=== PATIENT | female | born 1955 | race Caucasian/White ===

== ENCOUNTER 2017-10-02 05:35 | Inpatient (IN) | payer OTHER ==
[2017-09-07 11:08] VITALS: BMI 29.0
--- NOTE | 2017-09-07 11:34 | PAT Medication Instructions ---
Service Date Sep 07, 2017. Current Home Medication List Atorvastatin (Lipitor), 10 MG PO QPM B-Complex Vitamins (Vitamin B Complex), 1 TAB PO QAM Rojjjif-Dhkxvckeo-Ianu (Calcium Magnesium & Zinc), 1 TAB PO HS Hydrochlorothiazide (Hctz), 25 MG PO QAM Ibuprofen (Advil), 400-800 MG PO PRN Losartan Potassium (Cozaar), 50 MG PO QAM Multivitamin (Multivitamin), 1 TAB PO QAM Ropinirole (Requip), 2-3 TAB PO QPM/HS Tramadol (Ultram), 50 MG PO Q4-6H Venlafaxine Hcl (Effexor), 37.5 MG PO QAM Vitamins C & E (Vitamin C), 1 TAB PO BID Zolpidem Tartrate (Zolpidem Tartrate), 1-1.5 TAB PO HS [Potassium Otc], 1 TAB PO HS Medication Instructions For Your Scheduled Surgery -Follow with surgeon for instructions: Ibuprofen (Advil), 400-800 MG PO PRN Tramadol (Ultram), 50 MG PO Q4-6H - Hold the following medications 24 hours prior to surgery: Ropinirole (Requip), 2-3 TAB PO QPM/HS - Hold the following medications the morning of surgery: B-Complex Vitamins (Vitamin B Complex), 1 TAB PO QAM Hydrochlorothiazide (Hctz), 25 MG PO QAM Losartan Potassium (Cozaar), 50 MG PO QAM Multivitamin (Multivitamin), 1 TAB PO QAM Vitamins C (Vitamin C), 1 TAB PO BID - Take the following medications as scheduled the night before surgery: Vitamins C (Vitamin C), 1 TAB PO BID Zolpidem Tartrate (Zolpidem Tartrate), 1-1.5 TAB PO HS [Potassium Otc], 1 TAB PO HS Atorvastatin (Lipitor), 10 MG PO QPM Bqeosmm-Dhfabyiop-Phhr (Calcium Magnesium & Zinc), 1 TAB PO HS Venlafaxine Hcl (Effexor), 37.5 MG PO QPM If you have any questions please call us at [phone] or [phone] or [phone]
[2017-09-07 11:58] LABS: URINE APPEARANCE CLEAR (CLEAR); URINE BILIRUBIN NEG (NEG); URINE COLOR YELLOW; URINE NITRITE NEG (NEG); URINE SPECIFIC GRAVITY 1.021 (1.000-1.030); UROBILINOGEN NEG (NEG)
[2017-09-07 11:59] LABS: BASO % 0.4 %; BASO ABS # 0.03 K/uL (0-0.2); COMPLETE YES; EOS % 3.4 %; HEMATOCRIT 41.3 % (37-47); IG% 0.1 %; LYMPH % 25.9 %; LYMPH ABS # 1.93 K/uL (1.2-3.4); MEAN CELL VOLUME 85.3 fL (80-100); MEAN CORPUSCULAR HEMOGLOBIN 29.5 pg (25-34); MEAN CORPUSCULAR HGB CONC 34.6 g/dl (32-36); MEAN PLATELET VOLUME 10.2 fL (7.4-10.4); MONO % 5.5 %; NEUT % 64.7 %; PLATELET COUNT 230 K/uL (130-400); RED BLOOD COUNT 4.84 M/uL (4.2-5.4); WHITE BLOOD COUNT 7.46 K/uL (4.8-10.8)
[2017-09-07 12:01] LABS: MANUAL MICROSCOPIC REQUIRED? NO; REVIEW REQ? NO
[2017-09-07 12:06] LABS: INR 0.9 (0.9-1.1); PARTIAL THROMBOPLASTIN RATIO 1.1; PROTHROMBIN TIME (PATIENT) 9.8 SECONDS (9.0-12.0)
--- NOTE | 2017-09-07 12:17 | DIAGNOSTIC IMAGING REPORT ---
CHEST PREADMISSION(PA/LAT) HISTORY: Preop. COMPARISON: None. FINDINGS: The heart is normal in size. Degenerative changes are seen within the thoracic spine. No pleural effusions. No pneumothorax. No focal lung consolidations to suggest pneumonia. No evidence for pulmonary edema. A few linear densities at the lung bases favor subsegmental atelectasis or scarring. IMPRESSION: No acute process. Electronically signed by: Kendrick Quiroz M.D. 09/07/2017 12:16 PM Dictated Date/Time: 09/07/2017 12:11 PM
[2017-09-07 12:31] LABS: ESTIMATED AVERAGE GLUCOSE 80 mg/dl; HA1C FLAG Normal (Normal)
[2017-09-07 13:49] LABS: BUN/CREATININE RATIO 34.3 (10-20); CALCIUM 9.1 mg/dl (8.5-10.1); CREATININE 0.74 mg/dl (0.60-1.20); POTASSIUM 4.3 mmol/L (3.5-5.1)
--- NOTE | 2017-09-28 12:09 | History and Physical ---
History & Physical Date Sep 28, 2017. Chief Complaint Right knee pain History of Present Illness The patient is a 61 year old female with complaints of right knee pain. She has tried conservative therapy of NSAIDs, PT and injections with no relief. She would like to proceed with a right total knee arthroplasty. Past Medical/Surgical History PMHx: hypertension, hypercholesterolemia, anxiety, osteoarthritis, gerd PSHx: total hysterectomy, appendectomy, Bilateral CTR, tonsillectomy, cholecystectomy Additional History Hepatic Disease: No Endocrine Disorder: No Kidney Disease: No Hypertension: Yes Heart Disease: No Bleeding Tendencies: No Infectious Diseases: No Allergies Coded Allergies: Latex1 -Allergic Contact Dermititis (Verified Allergy, Unknown, RASH, ) NSAIDs (Verified Allergy, Unknown, DIARRHEA WITH IBS-WITH LONG-TERM USAGE , 09/07/17) Nickel (Verified Allergy, Unknown, DERMATITIS WITH METAL CONTACT IN JEWELRY, 09/07/17) Quinolones (Verified Allergy, Unknown, UNKNOWN, 09/07/17) Soy Allergy (Verified Allergy, Unknown, RASH IRRITATION ON SKIN, 09/07/17) Home Medications Scheduled Atorvastatin (Lipitor), 10 MG PO QPM B-Complex Vitamins (Vitamin B Complex), 1 TAB PO QAM Fhcijhx-Ioirgucus-Zwoc (Calcium Magnesium & Zinc), 1 TAB PO HS Hydrochlorothiazide (Hctz), 25 MG PO QAM Ibuprofen (Advil), 400-800 MG PO PRN Losartan Potassium (Cozaar), 50 MG PO QAM Multivitamin (Multivitamin), 1 TAB PO QAM Ropinirole (Requip), 2-3 TAB PO QPM/HS Tramadol (Ultram), 50 MG PO Q4-6H Venlafaxine Hcl (Effexor), 37.5 MG PO QPM Vitamins C & E (Vitamin C), 1 TAB PO BID Zolpidem Tartrate (Zolpidem Tartrate), 1-1.5 TAB PO HS [Potassium Otc], 1 TAB PO HS Physical Examination Skin: warm/dry, no rash Eyes: normal inspection, EOMI ENT: normal ENT inspection Head: normocephalic, atraumatic Neck: supple, no adenopathy Respiratory/Chest: lungs clear, normal breath sounds Cardiovascular: regular rate, rhythm, no murmur Abdomen / GI: normal bowel sounds, non tender Extremities: normal inspection, + pertinent finding (ROM 0-90 medial joint line tenderness, ligaments are intact.) Neurologic/Psych: no motor/sensory deficits, alert, oriented x 3 Diagnosis Primary osteoarthritis of the right knee Plan of Treatment Patient is scheduled for a right total knee arthroplasty. She has failed conservative therapy. Risks and benefits were discussed with the patient. She understands the risks and wishes to proceed. All questions were answered to her satisfaction.
[2017-10-02] VITALS (9 sets, daily range): BP systolic 131–197; BP diastolic 77–112; PULSE 71–94; TEMP 36.2–36.9; O2SAT 92–99; Ht 165.1 cm; Wt 81.2 kg
[~2017-10-02] VITALS: Ht 165.1 cm; Wt 81.2 kg
[~2017-10-02 05:35] MED LIST: ATOR10TA82 PO; B-COTAB18 PO; CALC1TAB27 PO; EFF/375 PO; HYDR25TA4 PO; IBUP-1050 PO; LOSA50TA6 PO; MULT-506 PO; POTASSIUM OTC PO; ROPI0.5T15 PO; TRAM-10 PO; VITACAP26 PO; ZOLP5TAB6 PO
[2017-10-02] MEDS ORDERED: LACTATED RINGER'S 1000ML 1,000 ML IV SCH (06:00)
[2017-10-02] MEDS ORDERED: ROPIVACAINE 5MG/ML 30 ML 150 MG, BUPIVACAINE 0.5% MPF INJ 30 ML, EpINEphrine HCL INJ 0.... INFIL SCH ×8 (06:00)
[2017-10-02] MEDS ORDERED: LACTATED RINGER'S 1000ML IV SCH (06:00)
[2017-10-02] MEDS ORDERED: CEFAZOLIN 2000MG IV PUSH 10 ML IV SCH (06:00)
[2017-10-02] MEDS ORDERED: CeleBREX 200 MG CAP PO SCH (06:00)
[2017-10-02] MEDS ORDERED: DEXAMETHASONE 4 MG TAB PO SCH (06:00)
[2017-10-02] MEDS ORDERED: TRANEXAMIC ACID INJ 1,000 MG in SYRINGE 0 ML IV SCH (06:00)
[2017-10-02] MEDS ORDERED: LACTATED RINGER'S 1000ML 500 ML IV ONE (06:00)
[2017-10-02] MEDS ORDERED: METOCLOPRAMIDE HCL 10 MG TAB PO SCH (06:00)
[2017-10-02] MEDS ORDERED: FAMOTIDINE 20 MG TAB PO SCH (06:00)
[2017-10-02] MEDS ORDERED: GABAPENTIN 300 MG CAP PO SCH (06:00)
[2017-10-02] MEDS ORDERED: ACETAMINOPHEN 500 MG TAB PO SCH (06:00)
[2017-10-02] MEDS ORDERED: DEXAMETHASONE SOD INJ 4 MG/ML VIAL ONE (06:31)
[2017-10-02] MEDS ORDERED: BUPIVACAINE/EPINEPHRINE 0.5% MPF 1:200,000 10 ML VIAL ONE (06:31)
[2017-10-02] MEDS ORDERED: SODIUM CHLORIDE 0.9% INJ 10 ML VIAL ONE (06:32)
--- NOTE | 2017-10-02 06:54 | History & Physical Bridge Note ---
H&P Re-Evaluation Bridge Note: I have examined the patient, reviewed the History & Physical and in the interval since the performance of the History & Physical I have noted the following changes of clinical significance: No changes noted
[2017-10-02] MEDS ORDERED: POVIDONE-IODINE OP SOLN 30 ML BTL ONE (07:03)
[2017-10-02] MEDS ORDERED: ORTHO JOINT ANESTHETIC ONE (07:03)
[2017-10-02] MEDS ORDERED: BACITRACIN 50000 UNIT VIAL ONE (07:03)
[2017-10-02] MEDS ORDERED: MIDAZOLAM HCL 1 MG/ML 2ML VIAL ONE (07:33)
[2017-10-02] MEDS ORDERED: FENTANYL CITRATE INJ 50 MCG/1 ML 2 ML VIAL ONE ×2 (07:33→09:46)
[2017-10-02] MEDS ORDERED: LIDOCAINE HCL 2% 2 ML VIAL (20MG/ML) ONE (08:21)
[2017-10-02] MEDS ORDERED: PROPOFOL IV EMULSION 10 MG/ML 20 ML VIAL IV ONE (08:21)
[2017-10-02] MEDS ORDERED: ONDANSETRON INJ 2 MG/ML 2 ML VIAL ONE (09:08)
--- NOTE | 2017-10-02 09:27 | [facility] Operative Report ---
Operative Report Operative Date Oct 02, 2017. Pre-Operative Diagnosis Primary osteoarthritis of the right knee Post-Operative Diagnosis same as pre-operative Procedure(s) Performed Right Total Knee Arthroplasty-cemented Surgeon Dr. Chencho Huynh Water And Fire Technician Surgeon(s) TATI Sotelo Estimated Blood Loss 20ml Findings as above Specimens Specimen A: Right knee bone and tissue Drains 2 hemovac Anesthesia spinal Complication(s) None Disposition Recovery Room / PACU Indications 61-year-old female with endstage arthritis of her knee. She is pkko-is-cznx medial compartment. There is ossify partial medial femoral condyle tibial plateau. She's failed conservative measures including injection and rehabilitation. She wishes to proceed with right total knee arthroscopy. Description of Procedure Risks benefits and alternatives of surgery including but not limited to infection, DVT, pain, stiffness, need for surgery, damage to blood vessels, damage to nerves or risks of anesthesia were discussed with the patient and they wished to proceed. The patient was identified and the laterality was confirmed and marked. They received a preoperative antibiotic as well as a spinal anesthetic and an abductor canal block. A well-padded tourniquet was applied and then the limb was prepped and draped in standard manner with ChloraPrep. The limb was exsanguinated and the tourniquet was inflated. I made a standard anterior incision. I sharply incised the skin then utilized Bovie electrocautery as well as the aqua mantis to achieve hemostasis. I made a medial parapatellar arthrotomy immobilized the patella laterally. I then excised the anterior horns of the medial and lateral meniscus as well as the infrapatellar fat pad. I elevated a portion of the MCL off of the tibia. I then pinned into place a patient-matched distal femoral cutting guide and made my distal femoral resection. I then pinned into place the 5 in 1 femoral cutting guide. I made my anterior, posterior and chamfer cuts. I then excised the cruciates and the remaining portions of the menisci. I then pinned into place a patient- matched tibial cutting guide and made my tibial resection. I then pinned into place the tibial plate a utilizing alignment kwabena to confirm rotation. I then cut for the post. Utilizing a lamina side hemmer and I then removed posterior osteophytes off the femur. I then placed a trial femur into position and cut for the trochlear component. I then sequentially trialed to size the polyethylene until there was good soft tissue balancing and range of motion. I then prepared the patella with a freehand cut utilizing sagittal saw. I sized and drilled for the patella. There was good tracking to the patella no lateral release was needed. All the trial components were removed. The deep tissues were anesthetized with an ortho mix solution. Then with Simplex HV with gentamicin cement, I cemented my definitive components. Definitive components, Hicks [employer] Nephew Journey 2: Femur 6 Tibia 4 Poly 9 Patella 29 oval A betadine soak was performed. A deep drain was placed. The arthrotomy was closed with interrupted #1 Vicryl suture subcutaneous tissue was closed with interrupted 2-0 Vicryl suture. The skin was closed with with héctor. A Silverlon was placed. Sterile dressings were applied. All needle and sponge counts were correct at the end of the procedure patient was transferred to the PACU in stable condition without apparent complication. The PA-C was necessary for assistance with procedure for assistance in positioning, prepping, draping, retraction and closure. I attest to the content of the Intraoperative Record and any orders documented therein. Any exceptions are noted below.
[2017-10-02] MEDS ORDERED: SODIUM CHLORIDE 0.9% 1000ML 1,000 ML IV SCH (09:54)
[2017-10-02] MEDS ORDERED: EpHEDrine SULFATE INJ 50 MG/ML AMP IV PRN (10:00)
[2017-10-02] MEDS ORDERED: BISACODYL 10 MG SUPP PR PRN (10:00)
[2017-10-02] MEDS ORDERED: FENTANYL CITRATE INJ 50 MCG/1 ML 2 ML VIAL IV PRN (10:00)
[2017-10-02] MEDS ORDERED: PROMETHAZINE HCL INJ 6.25 MG in SODIUM CHLORIDE 0.9% 50ML 50 ML IV PRN (10:00)
[2017-10-02] MEDS ORDERED: MAGNESIUM HYDROXIDE SUSP 30 ML UDC PO PRN (10:00)
[2017-10-02] MEDS ORDERED: ZOLPIDEM TARTRATE 5 MG TAB PO PRN (10:00)
[2017-10-02] MEDS ORDERED: METOCLOPRAMIDE HCL INJ 5 MG/ML 2 ML VIAL IV PRN (10:00)
[2017-10-02] MEDS ORDERED: ONDANSETRON INJ 2 MG/ML 2 ML VIAL IV PRN (10:00)
[2017-10-02] MEDS ORDERED: SOD PHOSPHATE/SOD BIPHOSPHATE ENEMA 132 ML BTL PR PRN (10:00)
[2017-10-02] MEDS ORDERED: ALUMINUM/MAGNESIUM/SIMETH (MAALOX MAX) 30 ML UDC PO PRN (10:00)
[2017-10-02] MEDS ORDERED: ATROPINE SULFATE 0.1 MG/ML 5ML SYR IV PRN (10:00)
[2017-10-02] MEDS ORDERED: MoRPHine SULFATE 2 MG/ML CARP IV PRN (10:00)
--- NOTE | 2017-10-02 10:16 | Anesthesiology Progress Note ---
Anesthesia Post Op Note Date & Time Oct 02, 2017 at 10:16 Vital Signs Pain Intensity: 2 Vital Signs Past 12 Hours Date Time Temp Pulse Resp B/P (MAP) Pulse Ox O2 Delivery O2 Flow Rate FiO2 10/02/17 10:00 77 16 142/85 98 Oxymask 7 10/02/17 09:52 36.9 79 16 130/84 96 Oxymask 7 10/02/17 06:05 36.8 72 18 155/102 96 Room Air Notes Mental Status: alert / awake / arousable, participated in evaluation Pt Amnestic to Procedure: Yes Nausea / Vomiting: adequately controlled Pain: adequately controlled Airway Patency, RR, SpO2: stable & adequate BP & HR: stable & adequate Hydration State: stable & adequate Neuraxial Anesthesia: was administered, sensory block is resolving Anesthetic Complications: no major complications apparent
--- NOTE | 2017-10-02 10:31 | DIAGNOSTIC IMAGING REPORT ---
R KNEE 1 OR 2 VIEWS ROUTINE CLINICAL HISTORY: AP/LATERAL IN PACU RIGHT KNEE joint replacement COMPARISON: None. DISCUSSION: Anatomic alignment status post total right knee replacement. Good contact between prosthetic and underlying bone. Surgical drains are in position. Expected soft tissue postoperative change IMPRESSION: Anatomic alignment status post total joint replacement. The above report was generated using voice recognition software. It may contain grammatical, syntax or spelling errors. Electronically signed by: Isaias Kline M.D. 10/02/2017 10:30 AM Dictated Date/Time: 10/02/2017 10:29 AM
[2017-10-02] MEDS: D5W AND 1/2NSS + 20MEQ KCL 1,000 ML IV SCH ×2 (11:20→21:25)
[2017-10-02] MEDS ORDERED: INFLUENZA VIRUS QUAD VACCINE 0.5 ML SYR IM. ONE (11:30)
[2017-10-02] MEDS ORDERED: INFLUENZA ADMINISTRATION CHARGE ONE (11:30)
[2017-10-02] MEDS: FERROUS GLUCONATE 324 MG TAB PO SCH ×2 (13:08→17:39)
[2017-10-02] MEDS: OXYCODONE HCL IR 5 MG TAB (IMMEDIATE RELEASE) PO PRN ×3 (14:17→21:25)
[2017-10-02] MEDS ORDERED: CEFAZOLIN IV 2,000 MG in DEXTROSE 5% 50ML 50 ML IV SCH (16:00)
[2017-10-02] MEDS: CEFAZOLIN IV 2,000 MG in SYRINGE 0 ML IV SCH ×2 (16:34→23:45)
[2017-10-02] MEDS ORDERED: NURSING VERBAL MED ORDER ONE (20:45)
[2017-10-02] MEDS ORDERED: POTASSIUM OTC PO SCH (21:00)
[2017-10-02] MEDS: SENNA 8.6 MG TAB PO SCH (21:23)
[2017-10-02] MEDS: CALCIUM 600MG + VIT D 400 IU TAB PO SCH (21:23)
[2017-10-02] MEDS: ATORVASTATIN 10 MG TAB PO SCH (21:23)
[2017-10-02] MEDS: ASPIRIN 81 MG ECTAB PO SCH (21:23)
[2017-10-02] MEDS: DOCUSATE SODIUM 100 MG CAP PO SCH (21:23)
[2017-10-02] MEDS: CeleBREX 200 MG CAP PO SCH (21:24)
[2017-10-02] MEDS: VENLAFAXINE HCL 37.5 MG TAB PO SCH (21:24)
[2017-10-02] MEDS: ROPINIROLE HCL PO SCH ×2 (21:57)
[2017-10-03] VITALS (7 sets, daily range): BP systolic 130–152; BP diastolic 72–88; PULSE 70–84; TEMP 36.5–36.9; O2SAT 95–97
[2017-10-03] MEDS: OXYCODONE HCL IR 5 MG TAB (IMMEDIATE RELEASE) PO PRN ×5 (04:29→20:51)
[2017-10-03] MEDS: ONDANSETRON INJ 2 MG/ML 2 ML VIAL IV PRN (04:30)
[2017-10-03] MEDS: D5W AND 1/2NSS + 20MEQ KCL 1,000 ML IV SCH (05:31)
[2017-10-03 06:12] LABS: HEMATOCRIT 32.5 % (37-47); MEAN CELL VOLUME 85.5 fL (80-100); MEAN CORPUSCULAR HEMOGLOBIN 28.4 pg (25-34); MEAN CORPUSCULAR HGB CONC 33.2 g/dl (32-36); MEAN PLATELET VOLUME 10.5 fL (7.4-10.4); PLATELET COUNT 192 K/uL (130-400); WHITE BLOOD COUNT 13.82 K/uL (4.8-10.8)
[2017-10-03 06:29] LABS: PROTHROMBIN TIME (PATIENT) 10.2 SECONDS (9.0-12.0)
[2017-10-03 06:50] LABS: BUN/CREATININE RATIO 21.9 (10-20); CALCIUM 8.4 mg/dl (8.5-10.1); CREATININE 0.76 mg/dl (0.60-1.20); POTASSIUM 3.7 mmol/L (3.5-5.1)
[2017-10-03] MEDS: VITAMIN B COMPLEX TAB PO SCH (08:43)
[2017-10-03] MEDS: MULTIVITAMIN TAB PO SCH (08:43)
[2017-10-03] MEDS: ASPIRIN 81 MG ECTAB PO SCH ×2 (08:43→20:44)
[2017-10-03] MEDS: LOSARTAN POTASSIUM 50 MG TAB PO SCH (08:43)
[2017-10-03] MEDS: PANTOprazole SOD 40 MG TAB PO SCH (08:43)
[2017-10-03] MEDS: HYDROCHLOROTHIAZIDE 25 MG TAB PO SCH (08:44)
[2017-10-03] MEDS: DOCUSATE SODIUM 100 MG CAP PO SCH ×2 (08:44→20:44)
[2017-10-03] MEDS: CeleBREX 200 MG CAP PO SCH ×2 (08:45→20:44)
[2017-10-03] MEDS: FERROUS GLUCONATE 324 MG TAB PO SCH ×3 (08:45→16:29)
[2017-10-03] MEDS ORDERED: MULTIVITAMIN TAB PO SCH (09:00)
--- NOTE | 2017-10-03 09:25 | Orthopedic Progress Note ---
Orthopedic Progress Note Date of Service Oct 03, 2017. Subjective Post OP Day: 1 Reports: feeling well, pain controlled w PO medications, Denies: complaints, chest pain, SOB, nausea / vomiting, light headedness, calf pain Objective calves soft nontender, N/V intact, capillary refill less than 2 sec., dressing C /D/I, A&O x3, toes mobile Date Time Temp Pulse Resp B/P (MAP) Pulse Ox O2 Delivery O2 Flow Rate FiO2 10/03/17 07:51 36.5 84 16 130/72 (91) 96 Room Air 10/03/17 03:30 36.5 83 16 152/88 (109) 95 Room Air 10/02/17 23:40 Room Air 10/02/17 23:09 36.3 73 17 147/79 (101) 96 Room Air 10/02/17 20:57 36.5 94 19 197/112 (140) 95 Room Air 10/02/17 15:42 36.9 74 16 131/77 (95) 92 Room Air 10/02/17 15:20 Room Air 10/02/17 13:24 36.2 71 16 139/94 (109) 97 2.0 10/02/17 12:24 77 16 139/89 (106) 98 2.0 10/02/17 11:25 36.3 75 18 143/91 (108) 97 Nasal Cannula 3.0 10/02/17 10:55 36.3 71 18 152/97 (115) 99 Nasal Cannula 4.0 10/02/17 10:25 36.3 77 16 151/86 (107) 97 Nasal Cannula 2.0 10/02/17 10:25 97 Nasal Cannula 2.0 10/02/17 10:25 97 Nasal Cannula 2.0 10/02/17 10:10 36.7 77 16 135/83 99 Nasal Cannula 2 10/02/17 10:00 77 16 142/85 98 Oxymask 7 10/02/17 09:52 36.9 79 16 130/84 96 Oxymask 7 Laboratory Results 24 Hours: Test 10/03/17 05:48 Hematocrit 32.5 % Hemoglobin 10.8 g/dL Prothromb Time International Ratio 1.0 Prothrombin Time 10.2 SECONDS Assessment & Plan Assessment: POD #1 s/p right TKA Plan: PT/OT Pain control D/C planning--home when stable. Possibly tomorrow if hemovac drainage decreases. Inhouse Planning Pain Management: Celebrex, Morphine, Oxy IR DVT Prophylaxis: TRISTANs ASA Discharge Planning Discharge Planning: home Pain Management: Celebrex, Oxy IR DVT Prophylaxis: TEDs, ASA
[2017-10-03] MEDS ORDERED: CLB/200 PO (09:28)
[2017-10-03] MEDS ORDERED: ASPI1TAB83 PO (09:28)
[2017-10-03] MEDS ORDERED: OXYC1TAB3 PO (09:28)
[2017-10-03] MEDS ORDERED: ONDA8TAB12 PO (09:28)
--- NOTE | 2017-10-03 09:30 | Discharge Instructions ---
Discharge Instructions Date of Service Oct 03, 2017. Admission Reason for Admission: Right Knee Osteoarthritis Discharge Discharge Diagnosis / Problem: right knee osteoarthritis Discharge Goals Goal(s): Decrease discomfort, Improve function Activity Recommendations Activity Limitations: per Instructions/Follow-up section Weightbearing Status: Right weightbearing (as tolerated) . Instructions / Follow-Up Instructions / Follow-Up ACTIVITY RECOMMENDATIONS: SELF CARE INSTRUCTIONS AFTER TOTAL KNEE REPLACEMENT A. You may need to continue a physical therapy program after discharge from the hospital. There are several options available to you. Your doctor will assist you in selecting the best one for you. 1. An out-patient facility 3 times a week for therapy. 2. Home therapy for 1 to 2 weeks with outpatient therapy to follow. 3. Continue working on all exercises taught by physical therapy three times a day for 20 minutes on non-therapy days. Your goals should be to increase the bending of your knee to 90 degrees and beyond and to fully straighten your knee. Ice and elevate knee after exercise. B. Weight as tolerated with a walker or as instructed by your physician. C. It is okay to shower if minimal to no drainage from incision. No Baths. Do not soak wound. D. Make walking a part of your daily routine. Be up as much as comfortable with rest periods throughout the day. Rest with leg elevation is very important. Use the ice wrap frequently for the first 3-4 weeks. E. There are no restrictions on activities. 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 F. Wear the long elastic stockings (TRISTAN hose) 20 hours a day for one month after surgery. They can be removed several times a day for laundering and when showering. G. Silverlon- This is a large adhesive bandage that contains silver ions. This helps your incision heal by fighting off bacteria and protecting it from the outside environment. You are permitted to shower with this dressing. This will remain on your incision for 7 days and then should be removed. Some visible blood or drainage through the dressing window is normal. If there is significant drainage or leaking noted before the 7 days notify your doctor's office immediately. Once removed, keep incision clean and dry. If there is any drainage or redness noted, please call your surgeon. SPECIAL CARE INSTRUCTIONS: VERY IMPORTANT TO READ AND REVIEW A. Take Aspirin (blood thinning medications) as directed by your doctor. If on Coumadin, have a pro-time (blood test) drawn according to your doctor's instructions. This will tell the doctor how well the Coumadin is thinning your blood. B. There are a few signs you need to watch for after you are home. Call [facility] if you notice any of the followin. Increased severe knee pain. Some pain is expected especially when you exercise. 2. Increased swelling in your leg or knee; pain or swelling of the calf muscle in either lower leg. 3. Any redness or fluid drainage from the incision. 4. Shortness of breath or chest pain. 5. A Temperature of 101 degrees F or greater. C. Please call [facility] at if you have any concerns or questions about your operation or recovery. The doctor or his nurse will return your call promptly. D. You must take antibiotics before dental work, bladder, bowel or other surgery. Your doctor will provide you with a permanent care to carry describing this precaution. FOLLOW UP VISIT: If appointment is not already scheduled: Please call [facility] to make a follow-up appointment for one month after your surgery at . Current Hospital Diet Patient's current hospital diet: Regular Diet Discharge Diet Recommended Diet: Regular Diet Procedures Procedures Performed: Right Total Knee Arthroplasty-cemented Pending Studies Studies pending at discharge: no Laboratory Results Hemoglobin A1c Test 09/07/17 11:40 Range/Units Estimated Average Glucose 80 mg/dl Hemoglobin A1c 4.4 L 4.5-5.6 % Medical Emergencies . Who to Call and When: Medical Emergencies: If at any time you feel your situation is an emergency, please call 911 immediately. . Non-Emergent Contact Non-Emergency issues call your: Surgeon Call Non-Emergent contact if: temperature is above 101, your pain is not controlled, your pain is worsening, wound has increased drainage, wound has increased redness, wound has increased pain . "Provider Documentation" section prepared by Mandeep Lea. . VTE Core Measure Inpt VTE Proph given/why not?: Other Anticoagulation (Aspirin), T.E.D. Stockings
[2017-10-03] MEDS: VENLAFAXINE HCL 37.5 MG TAB PO SCH (20:43)
[2017-10-03] MEDS: SENNA 8.6 MG TAB PO SCH (20:43)
[2017-10-03] MEDS: ATORVASTATIN 10 MG TAB PO SCH (20:44)
[2017-10-03] MEDS: CALCIUM 600MG + VIT D 400 IU TAB PO SCH (20:44)
[2017-10-03] MEDS: ROPINIROLE HCL PO SCH ×2 (20:44)
[2017-10-04] MEDS: ONDANSETRON INJ 2 MG/ML 2 ML VIAL IV PRN (06:23)
[2017-10-04 06:44] VITALS: BP 146/94; PULSE 75; TEMP 36.8; O2SAT 94
[2017-10-04] MEDS: OXYCODONE HCL IR 5 MG TAB (IMMEDIATE RELEASE) PO PRN (06:49)
[2017-10-04 07:25] VITALS: O2SAT 94
[2017-10-04 08:49] VITALS: BP 143/84; PULSE 76; O2SAT 95
[2017-10-04] MEDS: LOSARTAN POTASSIUM 50 MG TAB PO SCH (08:50)
[2017-10-04] MEDS: DOCUSATE SODIUM 100 MG CAP PO SCH (08:50)
[2017-10-04] MEDS: PANTOprazole SOD 40 MG TAB PO SCH (08:50)
[2017-10-04] MEDS: FERROUS GLUCONATE 324 MG TAB PO SCH (08:50)
[2017-10-04] MEDS: MULTIVITAMIN TAB PO SCH (08:51)
[2017-10-04] MEDS: ASPIRIN 81 MG ECTAB PO SCH (08:51)
[2017-10-04] MEDS: HYDROCHLOROTHIAZIDE 25 MG TAB PO SCH (08:51)
[2017-10-04] MEDS: VITAMIN B COMPLEX TAB PO SCH (08:51)
[2017-10-04] MEDS: CeleBREX 200 MG CAP PO SCH (08:52)
--- NOTE | 2017-10-04 10:21 | Orthopedic Progress Note ---
Orthopedic Progress Note Date of Service Oct 04, 2017. Subjective Post OP Day: 2 Reports: feeling well, pain controlled w PO medications, Denies: complaints, chest pain, SOB, nausea / vomiting, light headedness, calf pain Objective calves soft nontender, N/V intact, capillary refill less than 2 sec., dressing C /D/I, A&O x3, toes mobile, hemovac drainage (50 cc today prior to hemovac d/c.) Date Time Temp Pulse Resp B/P (MAP) Pulse Ox O2 Delivery O2 Flow Rate FiO2 10/04/17 08:49 76 143/84 (103) 95 Room Air 10/04/17 07:25 94 Room Air 10/04/17 06:44 36.8 75 16 146/94 (111) 94 Room Air 10/03/17 23:30 Room Air 10/03/17 22:50 36.9 78 16 134/78 (96) 95 Room Air 10/03/17 15:30 Room Air 10/03/17 14:51 36.5 70 16 130/81 (97) 97 Room Air 10/03/17 12:01 36.7 71 16 147/85 (105) 97 Room Air 2.0 10/03/17 11:47 36.7 71 16 147/85 (105) 97 Room Air Assessment & Plan Assessment: POD #2 s/p right TKA Plan: PT/OT Pain control D/C planning--home today Inhouse Planning Pain Management: Celebrex, Morphine, Oxy IR DVT Prophylaxis: TRISTANs ASA Discharge Planning Discharge Planning: home Pain Management: Celebrex, Oxy IR DVT Prophylaxis: TEDs ASA
[2017-10-04 10:25] VITALS: BP 143/84; PULSE 76; TEMP 36.8; O2SAT 95
--- NOTE | 2017-10-06 10:27 | Discharge Summary ---
Orthopedic Discharge Summary Admission Date/Reason Oct 02, 2017 at 09:59 Right Knee Osteoarthritis. Discharge Date/Disposition Oct 04, 2017 Home Diagnosis Principal Diagnosis: S/P right total knee arthroplasty Medication Reconciliation as per discharge instructions Admission Physical Exam As per Admitting History & Physical. Hospital Course POD#1 patient was feeling well with no complaints. dressing was clean, dry and intact. Drain was left in due to increased drainage. POD #2 patient was feeling well. Dressing was clean, dry and intact. Her drain output was less than the previous day. She was discharged home with self care later that day. Discharge Instructions Please refer to the electronic Patient Visit Report (Discharge Instructions) for additional information.
== END 2017-10-04 11:44 | disposition home or self-care (01) | DRG 470 ==
LOC: C.ACU 05:35 → C.3E 09:59 → ENRESERV 10:07
PROVIDERS: ADMIT Orthopaedic Surgery; ATTEND Orthopaedic Surgery
PROC: 0SRC0J9 Replacement of Right Knee Joint with Synthetic Substitute, Cemented, Open Approach (ICD-10-PCS; principal; 2017-10-02 08:00)
DX: M17.11 Unilateral primary osteoarthritis, right knee (principal); I10 Essential (primary) hypertension; E78.00 Pure hypercholesterolemia, unspecified; F41.9 Anxiety disorder, unspecified; G25.81 Restless legs syndrome; Z90.710 Acquired absence of both cervix and uterus; Z90.49 Acquired absence of other specified parts of digestive tract; Z79.899 Other long term (current) drug therapy; Z91.040 Latex allergy status

== ENCOUNTER 2019-08-25 05:29 | Inpatient (IN) ==
--- NOTE | 2019-07-21 08:46 | PAT Medication Instructions ---
Medication Instructions Date of Service July 21, 2019 Home Medications Medication Instructions Recorded acetaminophen [Pain Reliever] 1,000 mg PO Q8H PRN #90 tab 09/28/18 Calcium 600 + D(3) 1 cap PO PM ascorbic acid (vitamin C) [Vitamin C] 500 mg PO BID duloxetine 60 mg PO QAM ferrous sulfate [iron] 325 mg PO QAM hydrochlorothiazide 25 mg PO QAM losartan 100 mg PO QAM magnesium 250 mg PO HS multivitamin 1 tab PO DAILY ropinirole [Requip] 0.5 mg PO QPM zinc 50 mg PO HS acetaminophen [Pain Reliever] 1,000 mg PO Q8H PRN ropinirole 1 mg PO HS atorvastatin 20 mg PO PM celecoxib [Celebrex] 200 mg PO QAM sennosides [Senokot] 17.2 mg PO HS PRN temazepam 15 mg PO HS ASK your surgeon for instructions celecoxib [Celebrex] 200 mg PO QAM STOP taking 24 hours before surgery ropinirole 1 mg PO HS DO NOT take the morning of surgery ascorbic acid (vitamin C) [Vitamin C] 500 mg PO BID ferrous sulfate [iron] 325 mg PO QAM hydrochlorothiazide 25 mg PO QAM losartan 100 mg PO QAM multivitamin 1 tab PO DAILY Take morning of surgery With a small sip of water, OTHERWISE NOTHING TO EAT OR DRINK AFTER MIDNIGHT: duloxetine 60 mg PO QAM acetaminophen [Pain Reliever] 1,000 mg PO Q8H PRN (okay to take up to 4 hours p rior to surgery if needed) Take evening before surgery Calcium 600 + D(3) 1 cap PO PM ascorbic acid (vitamin C) [Vitamin C] 500 mg PO BID magnesium 250 mg PO HS zinc 50 mg PO HS acetaminophen [Pain Reliever] 1,000 mg PO Q8H PRN (if needed) atorvastatin 20 mg PO PM sennosides [Senokot] 17.2 mg PO HS PRN (if needed) temazepam 15 mg PO HS Other Notes If you have any questions please call us at [phone] or [phone] or [phone] or [phone]
--- NOTE | 2019-07-21 11:32 | Anesthesiology Consultation ---
Date of Service July 21, 2019 Assessment & Plan (1) Encounter for pre-operative examination: Chart Review Chart Review: Acceptable Risk for Surgery (pending surgeon-ordered PCP clearance scheduled 08/01 (SOFÍA Preciado)) and Patient seen in Pre Admission Testing Teaching & Discussion Pre-Anesthesia Teaching/Discussion Notes: Instructed NPO after midnight before surgery,except medications with 15 cc of water. Medication instructions provided according to the PAT guidelines. History Surgery Operation Date: 08/25/19 08:15 Proposed Procedures p Left Total Knee Arthroplasty - Chencho Huynh MD Height/Weight Height: 5 ft 5 in Weight: 88.6 kg Allergies Allergy/AdvReac Type Severity Reaction Status Date / Time latex Allergy Mild RASH Verified 07/14/19 09:55 nickel Allergy Mild DERMATITIS Verified 07/21/19 11:48 WITH METAL (CHEAP JEWELRY) Quinolones Allergy Unknown UNKNOWN Verified 07/21/19 11:48 REACTION soy Allergy Unknown RASH/SKIN Verified 07/21/19 11:48 IRRITATION NSAIDS (Non-Steroidal AdvReac Intermediate DIARRHEA/IBS Verified 07/21/19 11:48 Anti-Inflamma (WITH MCC USAGE) Additional Notes: *Per patient, surgeon aware nickel allergy* Medications Home Medications Medication Instructions Recorded Confirmed Last Taken Calcium 600 + D(3) 1 cap PO PM 09/20/18 07/14/19 10/08/18 ascorbic acid (vitamin C) [Vitamin 500 mg PO BID 09/20/18 07/14/19 10/08/18 C] duloxetine 60 mg PO QAM 09/20/18 07/14/19 10/08/18 ferrous sulfate [iron] 325 mg PO QAM 09/20/18 07/14/19 10/08/18 hydrochlorothiazide 25 mg PO QAM 09/20/18 07/14/19 10/08/18 losartan 100 mg PO QAM 09/20/18 07/14/19 10/08/18 magnesium 250 mg PO HS 09/20/18 07/14/19 10/08/18 multivitamin 1 tab PO DAILY 09/20/18 07/14/19 10/08/18 ropinirole [Requip] 0.5 mg PO QPM 09/20/18 07/14/19 10/08/18 zinc 50 mg PO HS 09/20/18 07/14/19 10/08/18 acetaminophen [Pain Reliever] 1,000 mg PO Q8H PRN #90 tab 09/28/18 07/14/19 10/08/18 ropinirole 1 mg PO HS 10/09/18 07/14/19 10/08/18 atorvastatin 20 mg PO PM 07/14/19 07/14/19 Unknown celecoxib [Celebrex] 200 mg PO QAM 07/14/19 07/14/19 Unknown sennosides [Senokot] 17.2 mg PO HS PRN 07/14/19 07/14/19 Unknown temazepam 15 mg PO HS 07/14/19 07/14/19 Unknown Past Medical History Medical History Degenerative disc disease Depression Endometriosis Fibromyalgia GERD (gastroesophageal reflux disease) CONTROLLED Hyperlipidemia Hypertension Irritable bowel syndrome Obesity Osteoarthritis Restless leg syndrome Exercise / Class Metabolic Activity II 4-5 Yardwork/Stairs/Walk up hill Past Family History Family History Mother Family history of diabetes mellitus Grandfather Family history of diabetes mellitus Family/Other Family history of diabetes mellitus Past Surgical History Surgical History History of appendectomy History of bunionectomy RT/LEFT History of carpal tunnel release RT/LEFT History of colonoscopy History of dilatation and curettage History of esophagogastroduodenoscopy (EGD) History of left hip replacement 09/28/18: SAB x1 at L4-L5 at [facility] History of tonsillectomy History of tooth extraction History of total abdominal hysterectomy and bilateral salpingo-oophorectomy History of total knee replacement RT Past Anesthesia History No Hx of Anesthesia Complications and No Family Hx of Anesthesia Complications History of PONV No Hx of PONV and No Hx of Motion Sickness Social History Smoking Status: Former smoker tobacco type: cigarettes Do You Dip or Chew Tobacco: No Smoking End Date: QUIT 25 YEARS AGO Hx Alcohol Use: No Hx Substance Use: No substance use type: does not use Review of Systems Controlled reflux. Patient denies chest pain, shortness of breath, cough, wheezing, palpitations. Physical Exam Vital Signs VITALS BP 167/103 (manual recheck left: 144/92); Patient advised to followup with PCP regarding elevated BP. P 72 TEMP 98.0 SP02 96%RA RESP 16 PHYSICAL Full neck and c-spine range of motion. Full TMJ range of motion. TMD 3 finger breaths Mallampati Score 2 Dentition: missing molars Lungs: clear throughout to auscultation Cardiac: regular rate and rhythm, no murmurs noted Spine: normal Carotid arteries: negative bruit Extremities: no edema Testing Laboratory Results 07/21/19 11:50 07/21/19 11:50 PT 9.7 Seconds (9.0-12.0) 07/21/19 11:50 INR 0.9 (0.9-1.1) 07/21/19 11:50 APTT 23.1 Seconds (21.0-31.0) 07/21/19 11:50 Hemoglobin A1c 4.9 % (4.5-5.6) 07/21/19 11:50 Urine Color Yellow 07/21/19 11:50 Urine Appearance Clear (Clear) 07/21/19 11:50 Urine pH 7.0 (4.5-7.5) 07/21/19 11:50 Ur Specific [place] 1.013 (1.000-1.030) 07/21/19 11:50 Urine Protein Negative (Negative) 07/21/19 11:50 Urine Glucose (UA) Negative (Negative) 07/21/19 11:50 Urine Ketones Negative (Negative) 07/21/19 11:50 Urine Nitrite Negative (Negative) 07/21/19 11:50 Ur Leukocyte Esterase Negative (Negative) 07/21/19 11:50 Blood Type A Positive 07/21/19 11:50 Antibody Screen NEGATIVE 07/21/19 11:50 *Surgeon made aware of elevated WBC* Electrocardiogram Date: 09/22/18 Findings: + NSR @ (78) Chest X-Ray Date: 07/21/19 Findings: + NAD Stress Test Date: 11/19/16 Type: exercise Stress ECHO/EKG negative for ischemia at 93%MPHR. LVEF 65-69%. Grade I DD. 10 METS. No significant valvular disease.
--- NOTE | 2019-07-21 13:16 | XRay Report ---
XR chest Pre-admission PA/Lat CLINICAL HISTORY: pat operative COMPARISON STUDY: 09/07/2017 FINDINGS: The bones soft tissues and hemidiaphragms are normal. The cardiomediastinal silhouette is n ormal. The lungs are clear. The pulmonary vasculature is normal. IMPRESSION: Negative chest. The above report was generated using voice recognition software. It may contain grammatical, syntax or spelling errors. Electronically signed by: Isaias Kline M.D. 07/21/2019 1:15 PM
[2019-07-21 13:45] LABS: Basophils # (auto) 0.01 K/uL (0-0.2); Basophils % (auto) 0.1 %; Eosinophils # (auto) 0.01 K/uL (0-0.5); Eosinophils % (auto) 0.1 %; Hematocrit (blood only) 39.9 % (37-47); Immature Granulocytes # (auto) 0.05 K/uL (0.00-0.02); Immature Granulocytes % (auto) 0.4 %; Lymphocytes # (auto) 1.44 K/uL (1.2-3.4); Lymphocytes % (auto) 11.1 %; Mean Corpuscular Hemoglobin 29.9 pg (25-34); Mean Corpuscular Hgb Conc 35.1 g/dL (32-36); Mean Corpuscular Volume 85.3 fL (80-100); Mean Platelet Volume 11.2 fL (7.4-10.4); Monocytes # (auto) 0.28 K/uL (0.11-0.59); Monocytes % (auto) 2.2 %; Neutrophils # (auto) 11.14 K/uL (1.4-6.5); Neutrophils % (auto) 86.1 %; Platelet Count 277 K/uL (130-400); RDW Coefficient of Variation 13.5 % (11.5-14.5); RDW Standard Deviation 41.7 fL (36.4-46.3); Red Blood Count 4.68 M/uL (4.2-5.4); White Blood Count 12.93 K/uL (4.8-10.8)
[2019-07-21 13:51] LABS: Albumin Level 3.9 gm/dl (3.4-5.0); BUN Creatinine Ratio 23.9 (10-20); Calcium 9.4 mg/dl (8.5-10.1); Creatinine Clr Calc Pharmacy 67.9 ml/min; Est GFR (African American) 76.3; Est GFR (Non-African American) 65.8; Potassium 3.6 mmol/L (3.5-5.1)
[2019-07-21 13:56] LABS: Appearance Urine Clear (Clear); Bilirubin Urine Negative (Negative); Blood Urine Negative (Negative); Color Urine Yellow; Glucose Urine UA Negative (Negative); Ketones Urine Negative (Negative); Leukocyte Esterase Urine Negative (Negative); Nitrite Urine Negative (Negative); Protein Urine Negative (Negative); Specific Gravity Urine 1.013 (1.000-1.030); Urobilinogen Urine Negative (Negative)
[2019-07-21 14:02] LABS: INR 0.9 (0.9-1.1); Partial Thromboplastin Ratio 0.9; Partial Thromboplastin Time 23.1 Seconds (21.0-31.0); Prothrombin Time 9.7 Seconds (9.0-12.0)
[2019-07-21 14:29] LABS: Estimated Average Glucose 94 mg/dl; Hemoglobin A1C 4.9 % (4.5-5.6)
--- NOTE | 2019-08-17 11:43 | History & Physical Report ---
Date of Service August 17, 2019 Assessment & Plan (1) Osteoarthritis of left knee: Patient has failed conservative measures as above. Treatment options were discussed. She would like to proceed with left total knee arthroplasty. Risks, benefits and alternatives to surgery including but not limited to infection, DVT, pain, stiffness, need for revision surgery, damage to blood vessels, damage to nerves, PE, , were discussed with the patient and they wish to proceed. All questions were answered. Will plan on aspirin 81mg BID x 30 days post operatively. She will plan on outpatient physical therapy upon discharge from hospital. She will follow up post operatively. Osteoarthritis type: primary Qualified Code(s): M17.12 - Unilateral primary osteoarthritis, left knee History of Present Illness Chief Complaint: Left knee pain Primary Care Provider: Mai Lyn PA-C 63 year old female with PMHx significant for HTN, restless leg, IBS, GERD, depression, and fibromyalgia presents with ongoing complaints of left knee pain. She has done well with right knee replacement in the past. She has failed conservative measures including anti-inflammatories, cortisone injections, visco injections. Pain is affecting her daily life and ability to carry out normal activity. She would like to proceed with left knee replacement. Patient denies headaches, sweats, fevers, chills, double vision, blurred vision, cough, sore throat, dysphagia, chest pain, sob, wheezing, n/v/d/c, numbness, tingling, fatigue, urinary symptoms, mood disorders. ROS positive for left knee pain and stiffness. Allergies Allergy/AdvReac Type Severity Reaction Status Date / Time latex Allergy Mild RASH Verified 07/14/19 09:55 nickel Allergy Mild DERMATITIS Verified 07/21/19 11:48 WITH METAL (CHEAP JEWELRY) Quinolones Allergy Unknown UNKNOWN Verified 07/21/19 11:48 REACTION soy Allergy Unknown RASH/SKIN Verified 07/21/19 11:48 IRRITATION NSAIDS (Non-Steroidal AdvReac Intermediate DIARRHEA/IBS Verified 07/21/19 11:48 Anti-Inflamma (WITH MEDICAL GENETICS DIRECTOR USAGE) Home Medications Home Medications Medication Instructions Recorded Confirmed Type Calcium 600 + D(3) 1 cap PO PM 09/20/18 07/14/19 History ascorbic acid (vitamin C) [Vitamin 500 mg PO BID 09/20/18 07/14/19 History C] duloxetine 60 mg PO QAM 09/20/18 07/14/19 History ferrous sulfate [iron] 325 mg PO QAM 09/20/18 07/14/19 History hydrochlorothiazide 25 mg PO QAM 09/20/18 07/14/19 History losartan 100 mg PO QAM 09/20/18 07/14/19 History magnesium 250 mg PO HS 09/20/18 07/14/19 History multivitamin 1 tab PO DAILY 09/20/18 07/14/19 History ropinirole [Requip] 0.5 mg PO QPM 09/20/18 07/14/19 History zinc 50 mg PO HS 09/20/18 07/14/19 History acetaminophen [Pain Reliever] 1,000 mg PO Q8H PRN #90 tab 09/28/18 07/14/19 Rx ropinirole 1 mg PO HS 10/09/18 07/14/19 History atorvastatin 20 mg PO PM 07/14/19 07/14/19 History celecoxib [Celebrex] 200 mg PO QAM 07/14/19 07/14/19 History sennosides [Senokot] 17.2 mg PO HS PRN 07/14/19 07/14/19 History temazepam 15 mg PO HS 07/14/19 07/14/19 History Past Med/Surg History Medical History Degenerative disc disease Depression Endometriosis Fibromyalgia GERD (gastroesophageal reflux disease) CONTROLLED Hyperlipidemia Hypertension Irritable bowel syndrome Obesity Osteoarthritis Restless leg syndrome Surgical History History of appendectomy History of bunionectomy RT/LEFT History of carpal tunnel release RT/LEFT History of colonoscopy History of dilatation and curettage History of esophagogastroduodenoscopy (EGD) History of left hip replacement 09/28/18: SAB x1 at L4-L5 at [facility] History of tonsillectomy History of tooth extraction History of total abdominal hysterectomy and bilateral salpingo-oophorectomy History of total knee replacement RT Family History Mother Family history of diabetes mellitus Grandfather Family history of diabetes mellitus Family/Other Family history of diabetes mellitus Social History Preferred Language: Irish Communication Ability: Effective Visual Impairment: No Limitations Hearing Ability: Normal Aircraft 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 Required: No Beliefs That Will Affect Care: None marital status: Current Living Situation: Spouse Other Information That Helps Us Care for You: No Feels Safe at Home: Yes Safety Concerns: Feels Safe At This Time Smoking Status: Former smoker Tobacco Type: cigarettes ; Do You Dip or Chew Tobacco: No ; Smoking End Date: QUIT 25 YEARS AGO ; Second Hand Exposure: Yes (PREVIOUS EXPOSURE) ; Tobacco Cessation Education Requested by Patient: No Hx Alcohol Use: No Hx Substance Use: No Review of Systems All systems reviewed & are unremarkable except as noted in HPI & below Physical Exam Constitutional: well developed and well nourished; no acute distress Eyes: PERRL, conjunctivae normal, anicteric sclerae ENMT: external ear and nose normal, oropharynx normal Neck: trachea midline, no thyromegaly Respiratory: normal respiratory effort, lungs clear to auscultation Cardiovascular: RRR, no murmur, no edema Musculoskeletal: Left knee: Tenderness medial joint line, decreased ROM with crepitus noted. Stable to valgus and varus stress. Positive Lilly's. Skin: no rashes, warm and dry Neurologic: patellar DTR's 2+ bilat, sensation intact Psychiatric: A+Ox3, euthymic affect Results & Data Laboratory Results Lab Results 07/21/19 07/21/19 07/21/19 Range/Units 11:50 11:50 11:50 WBC 12.93 H (4.8-10.8) K/uL RBC 4.68 (4.2-5.4) M/uL Hgb 14.0 (12.0-16.0) g/dL Hct 39.9 (37-47) % MCV 85.3 (80-100) fL MCH 29.9 (25-34) pg MCHC 35.1 (32-36) g/dL RDW Std Deviation 41.7 (36.4-46.3) fL RDW Coeff of Marcelo 13.5 (11.5-14.5) % Plt Count 277 (130-400) K/uL MPV 11.2 H (7.4-10.4) fL Immature Gran % (Auto) 0.4 % Neut % (Auto) 86.1 % Lymph % (Auto) 11.1 % Schleicher % (Auto) 2.2 % Eos % (Auto) 0.1 % Baso % (Auto) 0.1 % Immature Gran # (Auto) 0.05 H (0.00-0.02) K/uL Neut # (Auto) 11.14 H (1.4-6.5) K/uL Lymph # (Auto) 1.44 (1.2-3.4) K/uL Schleicher # (Auto) 0.28 (0.11-0.59) K/uL Eos # (Auto) 0.01 (0-0.5) K/uL Baso # (Auto) 0.01 (0-0.2) K/uL PT 9.7 (9.0-12.0) Seconds INR 0.9 (0.9-1.1) APTT 23.1 (21.0-31.0) Seconds PTT Ratio 0.9 Sodium (136-145) mmol/L Potassium (3.5-5.1) mmol/L Chloride (98-107) mmol/L Carbon Dioxide (21-32) mmol/L Anion Gap (3-11) BUN (7-18) mg/dl Creatinine (0.6-1.2) mg/dl Est Cr Clr Drug Dosing ml/min Est GFR ( Amer) Est GFR (Non-Af Amer) BUN/Creatinine Ratio (10-20) Glucose (70-99) mg/dl Estimat Average Glucose mg/dl Hemoglobin A1c (4.5-5.6) % Calcium (8.5-10.1) mg/dl Albumin (3.4-5.0) gm/dl Urine Color Yellow Urine Appearance Clear (Clear) Urine pH 7.0 (4.5-7.5) Ur Specific [place] 1.013 (1.000-1.030) Urine Protein Negative (Negative) Urine Glucose (UA) Negative (Negative) Urine Ketones Negative (Negative) Urine Blood Negative (Negative) Urine Nitrite Negative (Negative) Urine Bilirubin Negative (Negative) Urine Urobilinogen Negative (Negative) Ur Leukocyte Esterase Negative (Negative) Blood Type Antibody Screen 07/21/19 07/21/19 07/21/19 Range/Units 11:50 11:50 11:50 WBC (4.8-10.8) K/uL RBC (4.2-5.4) M/uL Hgb (12.0-16.0) g/dL Hct (37-47) % MCV (80-100) fL MCH (25-34) pg MCHC (32-36) g/dL RDW Std Deviation (36.4-46.3) fL RDW Coeff of Marcelo (11.5-14.5) % Plt Count (130-400) K/uL MPV (7.4-10.4) fL Immature Gran % (Auto) % Neut % (Auto) % Lymph % (Auto) % Schleicher % (Auto) % Eos % (Auto) % Baso % (Auto) % Immature Gran # (Auto) (0.00-0.02) K/uL Neut # (Auto) (1.4-6.5) K/uL Lymph # (Auto) (1.2-3.4) K/uL Schleicher # (Auto) (0.11-0.59) K/uL Eos # (Auto) (0-0.5) K/uL Baso # (Auto) (0-0.2) K/uL PT (9.0-12.0) Seconds INR (0.9-1.1) APTT (21.0-31.0) Seconds PTT Ratio Sodium 137 (136-145) mmol/L Potassium 3.6 (3.5-5.1) mmol/L Chloride 102 (98-107) mmol/L Carbon Dioxide 28 (21-32) mmol/L Anion Gap 8.0 (3-11) BUN 22 H (7-18) mg/dl Creatinine 0.92 (0.6-1.2) mg/dl Est Cr Clr Drug Dosing 67.9 ml/min Est GFR ( Amer) 76.3 Est GFR (Non-Af Amer) 65.8 BUN/Creatinine Ratio 23.9 H (10-20) Glucose 156 H (70-99) mg/dl Estimat Average Glucose 94 mg/dl Hemoglobin A1c 4.9 (4.5-5.6) % Calcium 9.4 (8.5-10.1) mg/dl Albumin 3.9 (3.4-5.0) gm/dl Urine Color Urine Appearance (Clear) Urine pH (4.5-7.5) Ur Specific [place] (1.000-1.030) Urine Protein (Negative) Urine Glucose (UA) (Negative) Urine Ketones (Negative) Urine Blood (Negative) Urine Nitrite (Negative) Urine Bilirubin (Negative) Urine Urobilinogen (Negative) Ur Leukocyte Esterase (Negative) Blood Type A Positive Antibody Screen NEGATIVE Diagnostic Findings Left knee radiographs: Near [id number] medial compartment with tricompartmental arthritic change throughout the knee.
[~2019-08-25 05:29] MED LIST changes: -ATOR10TA82 PO; -B-COTAB18 PO; -CALC1TAB27 PO; -EFF/375 PO; -HYDR25TA4 PO; -IBUP-1050 PO; -LOSA50TA6 PO; +MISSING PHYSICIAN SIGNATURE ON ORDER SCH; -MULT-506 PO; -POTASSIUM OTC PO; -ROPI0.5T15 PO; -TRAM-10 PO; -VITACAP26 PO; -ZOLP5TAB6 PO
[2019-08-25] MEDS ORDERED: GABAPENTIN 600 MG DOSE PO SCH (06:00)
[2019-08-25] MEDS ORDERED: dexAMETHasone 4 MG TAB PO SCH (06:00)
[2019-08-25] MEDS ORDERED: LR 500ML BOLUS, THEN 15ML/HR IV SCH (06:00)
[2019-08-25] MEDS ORDERED: CEFAZOLIN 2000MG 2,000 MG/15 ML SYR IV SCH (06:00)
[2019-08-25] MEDS ORDERED: ACETAMINOPHEN 500 MG TAB PO SCH (06:00)
[2019-08-25] MEDS ORDERED: FAMOTIDINE 20 MG TAB PO SCH (06:00)
[2019-08-25] MEDS ORDERED: METOCLOPRAMIDE HCL 10 MG TABLET PO SCH (06:00)
[2019-08-25] MEDS ORDERED: CeleBREX 200 MG CAP PO SCH (06:00)
[2019-08-25] MEDS ORDERED: ROPIVACAINE 0.5% HCL/PF 150 MG, BUPIVACAINE 0.5% MPF 30 ML, EPINEPHrine 30MG/30ML (OR U... INSTIL SCH (06:00)
[2019-08-25] MEDS ORDERED: BUPIVACAINE 0.25% 30 ML VIAL ONE (06:21)
[2019-08-25] MEDS ORDERED: BUPIVACAINE 0.5 % 5 MG/1 ML PF 10ML VIAL ONE (06:21)
[2019-08-25] MEDS ORDERED: TRANEXAMIC ACID 1,000 MG **IV Intra-op IV SCH (06:30)
[2019-08-25] MEDS ORDERED: CeleBREX 200 MG CAP ONE (07:12)
[2019-08-25] MEDS ORDERED: GABAPENTIN 300 MG CAP ONE (07:12)
[2019-08-25] MEDS ORDERED: ACETAMINOPHEN 500 MG TAB ONE (07:13)
[2019-08-25] MEDS ORDERED: FAMOTIDINE 20 MG TAB ONE (07:13)
[2019-08-25] MEDS ORDERED: METOCLOPRAMIDE HCL 10 MG TABLET ONE (07:13)
[2019-08-25] MEDS ORDERED: dexAMETHasone 4 MG TAB PO ONE (07:13)
--- NOTE | 2019-08-25 07:29 | History & Physical Bridge Note ---
Date of Service August 25, 2019 History & Physical Bridge Note I have examined the patient, reviewed the History & Physical and in the interval since the performance of the History & Physical I have noted the following changes of clinical significance: no changes noted
[2019-08-25] MEDS ORDERED: MIDAZOLAM HCL 1 MG/ML 2ML VIAL ONE ×2 (07:55→08:02)
[2019-08-25] MEDS ORDERED: fentaNYL citrate 100 MCG/2 ML VIAL ONE ×2 (07:56→08:02)
[2019-08-25] MEDS: TRANEXAMIC ACID 1,000 MG **IV Pre-op IV SCH ×2 (07:57→08:18)
[2019-08-25] MEDS ORDERED: BACITRACIN INJ 50,000 UNIT VIAL ONE (08:06)
[2019-08-25] MEDS ORDERED: ePHEDrine sulfate 50 MG/ML AMP IV PRN (08:16)
[2019-08-25] MEDS ORDERED: ATROPINE SULFATE 0.1 MG/ML 10ML SYR IV PRN (08:16)
[2019-08-25] MEDS ORDERED: PROPOFOL IV EMULSION 10 MG/ML 20 ML VIAL IV ONE ×2 (08:43→09:21)
[2019-08-25] MEDS ORDERED: PHENYLEPHRINE 100MCG/ML 5ML SYR ONE (08:43)
[2019-08-25] MEDS ORDERED: LIDOCAINE HCL 2% 2 ML VIAL/AMP(20MG/ML) INFIL ONE (08:43)
[2019-08-25] MEDS ORDERED: ePHEDrine sulfate 50 MG/ML SYR ONE (08:43)
--- NOTE | 2019-08-25 09:33 | Operative Report ---
Post Operative Report Pre & Post Diagnosis Operation Date: 08/25/19 08:15 Pre-Op Diagnosis: Unilateral Primary Osteoarthritis, Left Knee Post-Op Diagnosis: Unilateral Primary Osteoarthritis, Left Knee Procedure Operation Date: 08/25/19 08:15 Actual Procedures p Left Total Knee Arthroplasty(Left) - Chencho Huynh MD Surgeon Chencho Huynh MD Wildlife Removal Specialist Girish Neil PA-C Estimated Blood Loss 20 Findings Consistent with Post-Op Diagnosis Specimens Bone and tissue Drains 2 Hemovac Anesthesia Type Spinal MAC Complications none Disposition Accompanied Patient To Recovery: No Disposition: Recovery Room Indications The patient is a 63-year-old female long-standing arthritic change in the left knee. She is failed conservative measures, injection, anti-inflammatories rehab. She is [id number] in the medial compartment with arthritic change in the other 2 compartments. She wishes to proceed with total knee replacement. Description of Procedure Risks benefits and alternatives of surgery including but not limited to infection, DVT, pain, stiffness, need for surgery, damage to blood vessels, damage to nerves or risks of anesthesia were discussed with the patient and they wished to proceed. The patient was identified and the laterality was confirmed and marked. They received a preoperative antibiotic as well as a spinal anesthetic and an abductor canal block. A well-padded tourniquet was applied and then the limb was prepped and draped in standard manner with ChloraPrep. The limb was exsanguinated and the tourniquet was inflated. I made a standard anterior incision. I sharply incised the skin then utilized Bovie electrocautery to achieve hemostasis. I made a medial parapatellar arthrotomy and mobilized the patella laterally. I then excised the anterior horns of the medial and lateral meniscus as well as the infrapatellar fat pad. I elevated a portion of the MCL off of the tibia. I then pinned into place a patient-matched distal femoral cutting guide and made my distal femoral resection. I then pinned into place the 5 in 1 femoral cutting guide. I made my anterior, posterior and chamfer cuts. I then excised the cruciates and the remaining portions of the menisci. I then pinned into place a patient- matched tibial cutting guide and made my tibial resection. I then pinned into place the tibial plate a utilizing alignment kwabena to confirm rotation. I then cut for the post. Utilizing a lamina it help desk analyst and I then removed posterior osteophytes off the femur. I then placed a trial femur into position and cut for the trochlear component. I then sequentially trialed to size the polyethylene until there was good soft tissue balancing and range of motion. I then prepared the patella with a freehand cut utilizing sagittal saw. I sized and drilled for the patella. There was good tracking to the patella no lateral release was needed. All the trial components were removed. The deep tissues were anesthetized with an ortho mix solution. Then with Simplex HV with gentamicin cement, I cemented my definitive components. Definitive components, Hicks and Nephew Journey 2: Femur 6 Tibia 4 Poly 9 Patella 29 oval A betadine soak was performed. A deep drain was placed. The arthrotomy was closed with interrupted #1 Vicryl suture subcutaneous tissue was closed with interrupted 2-0 Vicryl suture. The skin was closed with with héctor. An Acticoat and Alyson dressing were placed. Sterile dressings were applied. All needle and sponge counts were correct at t he end of the procedure patient was transferred to the PACU in stable condition without apparent complication. The PA-C was necessary for assistance with procedure for assistance in positioning, prepping, draping, retraction and closure. I attest to the content of the Intraoperative Record and any orders documented therein. Any exceptions are noted below.
--- NOTE | 2019-08-25 10:38 | XRay Report ---
LEFT KNEE 2 VIEWS History: Left total knee arthroplasty. Degenerative arthritis. Postop. FINDINGS: The patient is status post a left total knee arthroplasty. The hardware is intact. No fract ure or dislocation. Skin héctor and surgical drains are in place. IMPRESSION: Left total knee arthroplasty. No evidence for hardware complication. Electronically signed by: Kendrick Quiroz M.D. 08/25/2019 10:37 AM
[2019-08-25] MEDS ORDERED: SENNA 8.6 MG TAB PO PRN (11:23)
[2019-08-25] MEDS ORDERED: SODIUM CHLORIDE 0.9% 1000ML 1,000 ML IV SCH (11:23)
[2019-08-25] MEDS ORDERED: bisacodyL 10 MG SUPP PR PRN (11:23)
[2019-08-25] MEDS ORDERED: HYDROmorphone INJ 0.5 MG/0.5 ML SYR IV PRN (11:23)
[2019-08-25] MEDS ORDERED: NALOXONE HCL 0.4 MG/1 ML VIAL/CARP IV PRN (11:23)
[2019-08-25] MEDS ORDERED: ONDANSETRON INJ 2 MG/ML 2 ML VIAL IV PRN (11:23)
[2019-08-25] MEDS ORDERED: MAGNESIUM HYDROXIDE SUSP 30 ML UDC PO PRN (11:23)
[2019-08-25] MEDS ORDERED: METOCLOPRAMIDE HCL INJ 5 MG/ML 2 ML VIAL IV PRN (11:23)
--- NOTE | 2019-08-25 12:36 | Anesthesiology Progress Note ---
Date of Service August 25, 2019 Anesthesia Post Procedure Vital Signs Vital Signs: Temp Pulse Pulse Resp BP Pulse Ox 08/25/19 11:59 95 H 18 174/80 H 94 08/25/19 11:33 86 16 168/99 H 95 08/25/19 11:05 36.7 C 83 16 166/90 H 94 08/25/19 10:55 86 16 140/86 94 08/25/19 10:40 36.7 C 82 15 140/83 95 08/25/19 10:30 86 14 121/79 98 08/25/19 10:23 36.6 C 87 15 140/106 H 99 08/25/19 07:08 36.6 C 81 20 177/117 H 93 Transfer of Care Handoff Completed per policy Notes Mental Status: alert / awake / arousable and participated in evaluation Nausea / Vomiting: adequately controlled Pain: adequately controlled Airway Patency, RR, SpO2: stable & adequate BP & HR: stable & adequate Hydration State: stable & adequate Neuraxial Anesthesia: was administered and sensory block is resolving Anesthetic Complications: no major complications apparent and Pt Satisfied with anesthetic care
[2019-08-25] MEDS ORDERED: Nursing to Pharmacy Communication ONE (13:04)
[2019-08-25] MEDS ORDERED: INFLUENZA ADMINISTRATION CHARGE ONE (14:00)
[2019-08-25] MEDS ORDERED: INFLUENZA VIRUS QUAD VACCINE 0.5 ML SYR IM ONE (14:00)
[2019-08-25] MEDS ORDERED: LOSARTAN POTASSIUM 50 MG TAB PO SCH (14:00)
[2019-08-25] MEDS ORDERED: hydroCHLOROthiazide 25 MG TAB PO SCH (14:00)
[2019-08-25] MEDS: ACETAMINOPHEN 500 MG TAB PO SCH ×2 (14:28→21:58)
[2019-08-25] MEDS: CEFAZOLIN 2000MG 2,000 MG/15 ML SYR IV SCH ×2 (16:06→23:41)
[2019-08-25] MEDS: OXYCODONE HCL IR 5 MG TAB (IMMEDIATE RELEASE) PO PRN ×3 (16:08→23:41)
[2019-08-25] MEDS: ROPINIROLE HCL 0.25 MG TABLET PO SCH (16:59)
[2019-08-25] MEDS: DOCUSATE SODIUM 100 MG CAP PO SCH (20:25)
[2019-08-25] MEDS: SENNA 8.6 MG TAB PO SCH (20:25)
[2019-08-25] MEDS: ASPIRIN 81 MG ECTAB PO SCH (20:26)
[2019-08-25] MEDS: ZINC SULFATE 220 MG CAPSULE PO SCH (20:26)
[2019-08-25] MEDS: ATORVASTATIN 20 MG TAB PO SCH (20:26)
[2019-08-25] MEDS: ROPINIROLE HCL 1 MG TABLET PO SCH (20:26)
[2019-08-25] MEDS: CALCIUM 600MG + VIT D 400 IU TAB PO SCH (20:26)
[2019-08-25] MEDS: MAGNESIUM OXIDE 400 MG TAB PO SCH (20:27)
[2019-08-25] MEDS: ASCORBIC ACID 500 MG TAB PO SCH (20:27)
[2019-08-25] MEDS: CeleBREX 200 MG CAP PO SCH (20:28)
[2019-08-25] MEDS: TEMAZEPAM 15 MG CAPSULE PO SCH (21:58)
[2019-08-26] MEDS: ACETAMINOPHEN 500 MG TAB PO SCH ×3 (05:49→21:47)
[2019-08-26 05:57] LABS: Hematocrit (blood only) 35.5 % (37-47); Hemoglobin 12.2 g/dL (12.0-16.0); Mean Corpuscular Hemoglobin 29.1 pg (25-34); Mean Corpuscular Hgb Conc 34.4 g/dL (32-36); Mean Corpuscular Volume 84.7 fL (80-100); Mean Platelet Volume 11.1 fL (7.4-10.4); Platelet Count 262 K/uL (130-400); RDW Coefficient of Variation 13.6 % (11.5-14.5); RDW Standard Deviation 41.3 fL (36.4-46.3); Red Blood Count 4.19 M/uL (4.2-5.4); White Blood Count 16.37 K/uL (4.8-10.8)
--- NOTE | 2019-08-26 06:32 | Orthopedic Progress Note ---
Date of Service August 26, 2019 Assessment & Plan (1) Osteoarthritis of left knee: POD#1 Left TKA -Pain management -DVT prophylaxis -PT/OT -AM labs-Hgb 12.2 from 14 on preop labs. Chemistries pending -D/C planning-plan on discharging home with outpatient PT. Will recheck drain output later today for possible discharge. Subjective Patient is POD #1 left TKA. Seen resting in bed comfortably. Pain well controlled. No current complaints. Review of Systems Review of Systems: All systems reviewed & are unremarkable except as noted in HPI & below Physical Exam Physical Exam: Left leg dressing is clean, dry, intact. No calf tenderness. Toes are mobile, good dorsiflexion. Distally neurovascularly intact, sensation intact. Alyson intact, Hemovac draining. Constitutional: well developed and well nourished; no acute distress Results & Data Vital Signs (Past 12 Hours) Vital Signs Temp Pulse Resp BP Pulse Ox 08/26/19 03:07 36.6 C 71 16 128/80 92 08/25/19 23:30 36.8 C 77 16 132/72 97 08/25/19 20:02 36.9 C 84 17 148/82 H 93 (1) Osteoarthritis of left knee Osteoarthritis type: primary Qualified Code(s): M17.12 - Unilateral primary osteoarthritis, left knee
[2019-08-26 06:33] LABS: BUN Creatinine Ratio 26.7 (10-20); Calcium 9.2 mg/dl (8.5-10.1); Creatinine Clr Calc Pharmacy 71.4 ml/min; Est GFR (African American) 82.7; Est GFR (Non-African American) 71.4; Potassium 3.7 mmol/L (3.5-5.1)
--- NOTE | 2019-08-26 07:45 | Anesthesiology Progress Note ---
Date of Service August 26, 2019 Anesthesia Post Procedure Vital Signs Vital Signs: Temp Pulse Pulse Resp BP Pulse Ox 08/26/19 03:07 36.6 C 71 16 128/80 92 08/25/19 23:30 36.8 C 77 16 132/72 97 08/25/19 20:02 36.9 C 84 17 148/82 H 93 08/25/19 14:57 36.7 C 83 17 151/90 H 92 08/25/19 14:00 36.6 C 89 16 154/90 H 94 08/25/19 13:05 86 20 156/90 H 94 08/25/19 11:59 95 H 18 174/80 H 94 08/25/19 11:33 86 16 168/99 H 95 08/25/19 11:05 36.7 C 83 16 166/90 H 94 08/25/19 10:55 86 16 140/86 94 08/25/19 10:40 36.7 C 82 15 140/83 95 08/25/19 10:30 86 14 121/79 98 08/25/19 10:23 36.6 C 87 15 140/106 H 99 Pain Intensity Left Knee: Pain Intensity: 2 Notes Mental Status: alert / awake / arousable and participated in evaluation Patient Amnestic to Procedure: Yes Nausea / Vomiting: adequately controlled Pain: adequately controlled Airway Patency, RR, SpO2: stable & adequate BP & HR: stable & adequate Hydration State: stable & adequate Neuraxial Anesthesia: sensory block resolved Anesthetic Complications: Pt Satisfied with anesthetic care
[2019-08-26] MEDS: LOSARTAN POTASSIUM 50 MG TAB PO SCH (08:40)
[2019-08-26] MEDS: hydroCHLOROthiazide 25 MG TAB PO SCH (08:40)
[2019-08-26] MEDS: ASPIRIN 81 MG ECTAB PO SCH ×2 (08:41→20:52)
[2019-08-26] MEDS: DULOXETINE HCL 60 MG CAP PO SCH (08:41)
[2019-08-26] MEDS: ASCORBIC ACID 500 MG TAB PO SCH ×2 (08:41→20:52)
[2019-08-26] MEDS: DOCUSATE SODIUM 100 MG CAP PO SCH ×3 (08:41→20:52)
[2019-08-26] MEDS: MULTIVITAMIN TAB PO SCH (08:41)
[2019-08-26] MEDS: FERROUS SULFATE 325 MG TAB PO SCH (08:41)
[2019-08-26] MEDS: OXYCODONE HCL IR 5 MG TAB (IMMEDIATE RELEASE) PO PRN ×3 (08:47→16:27)
[2019-08-26] MEDS ORDERED: MULTIVITAMIN TAB PO SCH (09:00)
[2019-08-26] MEDS: CeleBREX 200 MG CAP PO SCH ×2 (10:37→20:52)
[2019-08-26] MEDS: ROPINIROLE HCL 0.25 MG TABLET PO SCH (17:26)
[2019-08-26] MEDS: ROPINIROLE HCL 1 MG TABLET PO SCH (20:52)
[2019-08-26] MEDS: SENNA 8.6 MG TAB PO SCH (20:52)
[2019-08-26] MEDS: TEMAZEPAM 15 MG CAPSULE PO SCH (20:52)
[2019-08-26] MEDS: ATORVASTATIN 20 MG TAB PO SCH (20:52)
[2019-08-26] MEDS: CALCIUM 600MG + VIT D 400 IU TAB PO SCH (20:52)
[2019-08-26] MEDS: MAGNESIUM OXIDE 400 MG TAB PO SCH (20:52)
[2019-08-26] MEDS: ZINC SULFATE 220 MG CAPSULE PO SCH (20:52)
[2019-08-27] MEDS: OXYCODONE HCL IR 5 MG TAB (IMMEDIATE RELEASE) PO PRN ×2 (00:35→09:31)
[2019-08-27] MEDS: ACETAMINOPHEN 500 MG TAB PO SCH (05:39)
--- NOTE | 2019-08-27 08:03 | Orthopedic Progress Note ---
Date of Service August 27, 2019 Assessment & Plan (1) Status post left knee replacement: 63 yo female stable POD #2 s/p left TKA 1. Med management 2. DVT prophylaxis- ASA, SCDs 3. PT/OT 4. D/C planning- home w/ OPPT Subjective Pt resting in bed, pain controlled, denies complaints Physical Exam Physical Exam: RONY dressing in place, toes mobile, NVI, calves soft, NT Results & Data Vital Signs (Past 12 Hours) Vital Signs Temp Pulse Resp BP BP Pulse Ox 08/27/19 07:28 36.6 C 68 18 167/103 H 174/104 H 94 08/26/19 23:22 36.5 C 74 16 131/77 94
[2019-08-27] MEDS: DULOXETINE HCL 60 MG CAP PO SCH (08:40)
[2019-08-27] MEDS: DOCUSATE SODIUM 100 MG CAP PO SCH (08:40)
[2019-08-27] MEDS: FERROUS SULFATE 325 MG TAB PO SCH (08:41)
[2019-08-27] MEDS: ASCORBIC ACID 500 MG TAB PO SCH (08:41)
[2019-08-27] MEDS: hydroCHLOROthiazide 25 MG TAB PO SCH (08:41)
[2019-08-27] MEDS: LOSARTAN POTASSIUM 50 MG TAB PO SCH (08:41)
[2019-08-27] MEDS: CeleBREX 200 MG CAP PO SCH (08:41)
[2019-08-27] MEDS: MULTIVITAMIN TAB PO SCH (08:41)
[2019-08-27] MEDS: ASPIRIN 81 MG ECTAB PO SCH (08:41)
--- NOTE | 2019-08-28 20:27 | Discharge Summary ---
Date of Service August 28, 2019 Admission HPI Per Admitting Provider 63 year old female with PMHx significant for HTN, restless leg, IBS, GERD, depression, and fibromyalgia presents with ongoing complaints of left knee pain. She has done well with right knee replacement in the past. She has failed conservative measures including anti-inflammatories, cortisone injections, visco injections. Pain is affecting her daily life and ability to carry out normal activity. She would like to proceed with left knee replacement. Patient denies headaches, sweats, fevers, chills, double vision, blurred vision, cough, sore throat, dysphagia, chest pain, sob, wheezing, n/v/d/c, numbness, tingling, fatigue, urinary symptoms, mood disorders. ROS positive for left knee pain and stiffness. Admission Exam Per Admitting Provider Constitutional: well developed and well nourished; no acute distress Eyes: PERRL, conjunctivae normal, anicteric sclerae ENMT: external ear and nose normal, oropharynx normal Neck: trachea midline, no thyromegaly Respiratory: normal respiratory effort, lungs clear to auscultation Cardiovascular: RRR, no murmur, no edema Musculoskeletal: Left knee: Tenderness medial joint line, decreased ROM with crepitus noted. Stable to valgus and varus stress. Positive Lilly's. Skin: no rashes, warm and dry Neurologic: patellar DTR's 2+ bilat, sensation intact Psychiatric: A+Ox3, euthymic affect Principal Diagnosis Left knee osteoarthritis Discharge Exam Constitutional well developed and well nourished; no acute distress Eyes PERRL, conjunctivae normal, anicteric sclerae ENMT external ear and nose normal, oropharynx normal Neck trachea midline, no thyromegaly Respiratory normal respiratory effort, lungs clear to auscultation Cardiovascular RRR, no murmur, no edema Skin no rashes, warm and dry Neurologic patellar DTR's 2+ bilat, sensation intact Psychiatric A+Ox3, euthymic affect Discharge Data Allergies Allergy/AdvReac Type Severity Reaction Status Date / Time latex Allergy Mild RASH Verified 08/25/19 07:02 nickel Allergy Mild DERMATITIS Verified 08/25/19 07:02 WITH METAL (CHEAP JEWELRY) Quinolones Allergy Unknown UNKNOWN Verified 08/25/19 07:02 REACTION soy Allergy Unknown RASH/SKIN Verified 08/25/19 07:02 IRRITATION NSAIDS (Non-Steroidal AdvReac Intermediate DIARRHEA/IBS Verified 08/25/19 07:02 Anti-Inflamma (WITH PENITENTIARY USAGE) Consultations 08/25/19 11:23 Consult Case Management - Discharge Planning Routine Procedures Performed Operation Date: 08/25/19 08:15 Actual Procedures p Left Total Knee Arthroplasty(Left) - Chencho Huynh MD Ordered Studies 08/25/19 05:00 US - OR guided needle placemen Routine Hospital Course (1) Status post left knee replacement: Patient presented for same day admission following left total knee arthroplasty on 08/25/19. She tolerated procedure well. The Patient had an uneventful hospital course. Post-operatively, her activity was progressed and well tolerated. They participated in PT with ambulation distance of 400 feet. ROM of operative knee reached 88 degrees. Labs remained stable- lowest hemoglobin recorded: 12.2. Pain controlled on oral medications. On POD#1 patient was feeling well, however hemovac output was more than we would like on discharge. Drains was removed on POD#2. Please refer to daily progress notes and PT notes for complete details. After exam on 08/27/19, patient was felt to be stable for discharge home with plans on attending outpatient PT. Patient will f/u in the office in about 2 weeks for further evaluation including x-rays and incision check, sooner if having any issues or concerns. Lab Results 07/21/19 07/21/19 07/21/19 Range/Units 11:50 11:50 11:50 WBC 12.93 H (4.8-10.8) K/uL RBC 4.68 (4.2-5.4) M/uL Hgb 14.0 (12.0-16.0) g/dL Hct 39.9 (37-47) % MCV 85.3 (80-100) fL MCH 29.9 (25-34) pg MCHC 35.1 (32-36) g/dL RDW Std Deviation 41.7 (36.4-46.3) fL RDW Coeff of Marcelo 13.5 (11.5-14.5) % Plt Count 277 (130-400) K/uL MPV 11.2 H (7.4-10.4) fL Immature Gran % (Auto) 0.4 % Neut % (Auto) 86.1 % Lymph % (Auto) 11.1 % [place] % (Auto) 2.2 % Eos % (Auto) 0.1 % Baso % (Auto) 0.1 % Immature Gran # (Auto) 0.05 H (0.00-0.02) K/uL Neut # (Auto) 11.14 H (1.4-6.5) K/uL Lymph # (Auto) 1.44 (1.2-3.4) K/uL [place] # (Auto) 0.28 (0.11-0.59) K/uL Eos # (Auto) 0.01 (0-0.5) K/uL Baso # (Auto) 0.01 (0-0.2) K/uL PT 9.7 (9.0-12.0) Seconds INR 0.9 (0.9-1.1) APTT 23.1 (21.0-31.0) Seconds PTT Ratio 0.9 Sodium (136-145) mmol/L Potassium (3.5-5.1) mmol/L Chloride (98-107) mmol/L Carbon Dioxide (21-32) mmol/L Anion Gap (3-11) BUN (7-18) mg/dl Creatinine (0.6-1.2) mg/dl Est Cr Clr Drug Dosing ml/min Est GFR ( Amer) Est GFR (Non-Af Amer) BUN/Creatinine Ratio (10-20) Glucose (70-99) mg/dl Estimat Average Glucose mg/dl Hemoglobin A1c (4.5-5.6) % Calcium (8.5-10.1) mg/dl Albumin (3.4-5.0) gm/dl Urine Color Yellow Urine Appearance Clear (Clear) Urine pH 7.0 (4.5-7.5) Ur Specific [place] 1.013 (1.000-1.030) Urine Protein Negative (Negative) Urine Glucose (UA) Negative (Negative) Urine Ketones Negative (Negative) Urine Blood Negative (Negative) Urine Nitrite Negative (Negative) Urine Bilirubin Negative (Negative) Urine Urobilinogen Negative (Negative) Ur Leukocyte Esterase Negative (Negative) Blood Type Antibody Screen 07/21/19 07/21/19 07/21/19 Range/Units 11:50 11:50 11:50 WBC (4.8-10.8) K/uL RBC (4.2-5.4) M/uL Hgb (12.0-16.0) g/dL Hct (37-47) % MCV (80-100) fL MCH (25-34) pg MCHC (32-36) g/dL RDW Std Deviation (36.4-46.3) fL RDW Coeff of Marcelo (11.5-14.5) % Plt Count (130-400) K/uL MPV (7.4-10.4) fL Immature Gran % (Auto) % Neut % (Auto) % Lymph % (Auto) % [place] % (Auto) % Eos % (Auto) % Baso % (Auto) % Immature Gran # (Auto) (0.00-0.02) K/uL Neut # (Auto) (1.4-6.5) K/uL Lymph # (Auto) (1.2-3.4) K/uL [place] # (Auto) (0.11-0.59) K/uL Eos # (Auto) (0-0.5) K/uL Baso # (Auto) (0-0.2) K/uL PT (9.0-12.0) Seconds INR (0.9-1.1) APTT (21.0-31.0) Seconds PTT Ratio Sodium 137 (136-145) mmol/L Potassium 3.6 (3.5-5.1) mmol/L Chloride 102 (98-107) mmol/L Carbon Dioxide 28 (21-32) mmol/L Anion Gap 8.0 (3-11) BUN 22 H (7-18) mg/dl Creatinine 0.92 (0.6-1.2) mg/dl Est Cr Clr Drug Dosing 67.9 ml/min Est GFR ( Amer) 76.3 Est GFR (Non-Af Amer) 65.8 BUN/Creatinine Ratio 23.9 H (10-20) Glucose 156 H (70-99) mg/dl Estimat Average Glucose 94 mg/dl Hemoglobin A1c 4.9 (4.5-5.6) % Calcium 9.4 (8.5-10.1) mg/dl Albumin 3.9 (3.4-5.0) gm/dl Urine Color Urine Appearance (Clear) Urine pH (4.5-7.5) Ur Specific [place] (1.000-1.030) Urine Protein (Negative) Urine Glucose (UA) (Negative) Urine Ketones (Negative) Urine Blood (Negative) Urine Nitrite (Negative) Urine Bilirubin (Negative) Urine Urobilinogen (Negative) Ur Leukocyte Esterase (Negative) Blood Type A Positive Antibody Screen NEGATIVE 08/26/19 08/26/19 Range/Units 05:06 05:06 WBC 16.37 H (4.8-10.8) K/uL RBC 4.19 L (4.2-5.4) M/uL Hgb 12.2 (12.0-16.0) g/dL Hct 35.5 L (37-47) % MCV 84.7 (80-100) fL MCH 29.1 (25-34) pg MCHC 34.4 (32-36) g/dL RDW Std Deviation 41.3 (36.4-46.3) fL RDW Coeff of Marcelo 13.6 (11.5-14.5) % Plt Count 262 (130-400) K/uL MPV 11.1 H (7.4-10.4) fL Immature Gran % (Auto) % Neut % (Auto) % Lymph % (Auto) % [place] % (Auto) % Eos % (Auto) % Baso % (Auto) % Immature Gran # (Auto) (0.00-0.02) K/uL Neut # (Auto) (1.4-6.5) K/uL Lymph # (Auto) (1.2-3.4) K/uL [place] # (Auto) (0.11-0.59) K/uL Eos # (Auto) (0-0.5) K/uL Baso # (Auto) (0-0.2) K/uL PT (9.0-12.0) Seconds INR (0.9-1.1) APTT (21.0-31.0) Seconds PTT Ratio Sodium 139 (136-145) mmol/L Potassium 3.7 (3.5-5.1) mmol/L Chloride 103 (98-107) mmol/L Carbon Dioxide 30 (21-32) mmol/L Anion Gap 6.0 (3-11) BUN 23 H (7-18) mg/dl Creatinine 0.86 (0.6-1.2) mg/dl Est Cr Clr Drug Dosing 71.4 ml/min Est GFR ( Amer) 82.7 Est GFR (Non-Af Amer) 71.4 BUN/Creatinine Ratio 26.7 H (10-20) Glucose 120 H (70-99) mg/dl Estimat Average Glucose mg/dl Hemoglobin A1c (4.5-5.6) % Calcium 9.2 (8.5-10.1) mg/dl Albumin (3.4-5.0) gm/dl Urine Color Urine Appearance (Clear) Urine pH (4.5-7.5) Ur Specific [place] (1.000-1.030) Urine Protein (Negative) Urine Glucose (UA) (Negative) Urine Ketones (Negative) Urine Blood (Negative) Urine Nitrite (Negative) Urine Bilirubin (Negative) Urine Urobilinogen (Negative) Ur Leukocyte Esterase (Negative) Blood Type Antibody Screen Total Time Total Time Spent Total Time Spent (In Minutes): 20 Discharge Plan Discharge Items Patient Disposition: Home - Self-Care Reason For Visit: Unilateral Primary Osteoarthritis, Left Knee Discharge Diagnosis: Left knee osteoarthritis Activity: Per Instructions section Non-emergency contact: Surgeon Call non-emergency contact if: you have any medication questions, your pain is concerning for you, you have a fever, your temperature is above 101, your wound has increased redness and your wound has increased drainage Follow-up/Referrals: Mai Lyn PA-C [Primary Care Provider] - Diet: Regular Addtl Attending Provider Instructions: ACTIVITY RECOMMENDATIONS: SELF CARE INSTRUCTIONS AFTER TOTAL KNEE REPLACEMENT A. You may need to continue a physical therapy program after discharge from the hospital. There are several options available to you. Your doctor will assist you in selecting the best one for you. 1. An out-patient facility 2 to 3 times a week for therapy or home therapy. 2. Continue working on all exercises taught to you in the hospital. Your goals should be to increase bending of your knee to 90 degrees and beyond and to fully straighten your knee. B. You may progress at your own pace from walking with a walker or crutches to a cane; then to no assistive devices. C. Make walking a part of your daily routine. Be up as much as comfortable with rest periods throughout the day. Rest with leg elevation is very important. Use the ice wrap frequently for the first 3-4 weeks. D. There are no restrictions on activities. You may ride in a car, shop, participate in gleason gear generator and all social activities. E. Wear the long elastic stockings (TRISTAN hose) 20 hours a day for 2 weeks after surgery. They can be removed several times a day for laundering and for a bath. F. You may shower, no tub baths until cleared by your doctor. SPECIAL CARE INSTRUCTIONS: VERY IMPORTANT TO READ AND REVIEW A. There are a few signs you need to watch for after you are home. Call [facility] if you notice any of the followin. Increased severe knee pain. Some pain is expected especially when you exercise. 2. Increased swelling in your leg or knee; pain or swelling of the calf muscle in either lower leg. 3. Any fluid drainage from the incision. 4. Shortness of breath or chest pain. B. Please call [facility] at if you have any concerns or questions about your operation or recovery. The doctor or his nurse will return your call promptly. C. You must take antibiotics before dental work, bladder, bowel or other surgery. Your doctor will provide you with a permanent care to carry describing this precaution. IMPORTANT: * REMEMBER TO TAKE ASPIRIN, 81 MG, TWICE DAILY FOR 4 WEEKS UNLESS OTHERWISE DIRECTED. THIS IS YOUR BLOOD THINNER. * HIGH RISK PATIENTS MAY BE PRESCRIBED A STRONGER BLOOD THINNER. THIS WILL BE PROVIDED AT DISCHARGE. * CALL IF INCREASED PAIN, REDNESS, DRAINAGE OR FEVER GREATER THAT 101. * WEAR TRISTAN HOSE 20 HOURS PER DAY FOR 2 WEEKS. * This is a large suction dressing covering your incision. This will help pull any excess drainage from the wound and allow your incision to heal properly. You may shower with this if you can keep the unit outside of the shower. If any bleeding or leakage is noted please call your doctor's office. This will remain on your incision for 7 days and then should be removed. This can be done yourself or by the home nursing staff if applicable. The entire uni t is disposable once removed. Once removed, keep incision clean and dry. If redness or drainage is noted, please call your surgeon. FOLLOW UP VISIT: If appointment is not already scheduled: Please call [facility] to make a follow-up appointment for 2 weeks after your surgery at . Pending Studies at Discharge: No Stand-Alone Forms: [facility], Opioid Pain Management Medications and DC Order Prescriptions: New aspirin [Ecotrin Low Strength] 81 mg Tablet,Delayed Release (Dr/Ec) 81 mg PO BID Qty: 60 RF: 0 acetaminophen [Tylenol Extra Strength] 500 mg Tablet 1,000 mg PO Q8 Qty: 60 RF: 0 celecoxib [Celebrex] 200 mg Capsule 200 mg PO BID Qty: 60 RF: 0 oxycodone 5 mg Tablet 5 - 10 mg PO .Q4H-6H MDD 6 PRN (Reason: pain) Qty: 30 RF: 0 Continued multivitamin Tablet 1 tab PO DAILY RF: 0 ascorbic acid (vitamin C) [Vitamin C] 500 mg Tablet 500 mg PO BID RF: 0 ferrous sulfate [iron] 325 mg (65 mg iron) Tablet 325 mg PO QAM RF: 0 ropinirole [Requip] 0.5 mg Tablet 0.5 mg PO QPM RF: 0 zinc 50 mg Tablet 50 mg PO HS RF: 0 magnesium 250 mg Tablet 250 mg PO HS RF: 0 hydrochlorothiazide 25 mg Tablet 25 mg PO QAM RF: 0 losartan 100 mg Tablet 100 mg PO QAM RF: 0 duloxetine 60 mg Capsule,Delayed Release(Dr/Ec) 60 mg PO QAM RF: 0 Calcium 600 + D(3) 600 mg calcium- 200 unit Capsule 1 cap PO PM RF: 0 ropinirole 0.5 mg Tablet 1 mg PO HS RF: 0 atorvastatin 20 mg Tablet 20 mg PO PM RF: 0 temazepam 15 mg Capsule 15 mg PO HS RF: 0 sennosides [Senokot] 8.6 mg tablet 17.2 mg PO HS PRN (Reason: Constipation) RF: 0 Discontinued acetaminophen [Pain Reliever] 500 mg Tablet 1,000 mg PO Q8H PRN (Reason: Pain) Qty: 90 RF: 0 celecoxib [Celebrex] 200 mg capsule 200 mg PO QAM RF: 0 Discharge Orders: Discharge Order (Routine); Ordered 08/27/19 Ordered By: Mir Murillo Admission Data Admit Date/Time: 08/25/19 10:28 Attending Provider: Chencho Huynh Admit Provider: Chencho Huynh Primary Care Provider: Mai Lyn Other Interventions: Discharge Summary Assessment (RN) Last Done: 08/27/19 09:18 DC Date/Time DO NOT enter until pt leaves facility: 08/27/19 10:00
== END 2019-08-27 10:00 | disposition home or self-care (01) | DRG 470 ==
LOC: ASU 05:29 → 3E 10:28
DX: I10 Essential (primary) hypertension; K21.9 Gastro-esophageal reflux disease without esophagitis; Z87.891 Personal history of nicotine dependence; Z83.3 Family history of diabetes mellitus; K58.9 Irritable bowel syndrome, unspecified; G25.81 Restless legs syndrome; Z88.6 Allergy status to analgesic agent; M79.7 Fibromyalgia; Z88.8 Allergy status to other drugs, medicaments and biological substances; M17.12 Unilateral primary osteoarthritis, left knee; E66.9 Obesity, unspecified; Z68.32 Body mass index [BMI] 32.0-32.9, adult; Z96.642 Presence of left artificial hip joint; F32.9 Major depressive disorder, single episode, unspecified; Z96.651 Presence of right artificial knee joint

== ENCOUNTER 2021-09-06 11:21 | Inpatient (IN) ==
[2021-09-06] MEDS ORDERED: SODIUM CHLORIDE 0.9% 500 ML IV STA (12:18)
[2021-09-06] MEDS ORDERED: ONDANSETRON INJ 2 MG/ML 2 ML VIAL IV STA (12:18)
[2021-09-06] MEDS ORDERED: HYDROmorphone INJ 1 MG/ML SYRINGE IV STA (12:18)
[2021-09-06] MEDS ORDERED: PROMETHAZINE 12.5 MG/50.5 ML BAG IV STA (12:18)
--- NOTE | 2021-09-06 12:23 | Emergency Department Note ---
Impression & Plan Diffuse abdominal pain, Vomiting, Hypertension, Elevated troponin ED Provider Note NAME: SOPHIA DUKE AGE: 65 SEX: F : 1955 ARRIVES VIA: Ambulance INFORMANT: [Patient] ED PROVIDER(S): [Kael Najera MD] CHIEF COMPLAINT: Abdominal pain HISTORY OF PRESENT ILLNESS: The patient is a 65-year-old female presents to the ER with severe upper abdominal pain that has been present for several hours. Since eating breakfast. The pain is a 10/10. She has vomited. There has been no fever, no cough or congestion. No urinary complaints. The patient had a similar episode of discomfort 2 days ago and and was in our ED. A plain CT was unremarkable. Her white count was 15,000. A CT angio of the abdomen pelvis was recommended but the patient left AGAINST MEDICAL ADVICE. The patient states that she does have fibromyalgia, she has some anxiety about having a CT scan. She wants to be relaxed for the CT. The patient states that she has had her appendix, her gallbladder, her uterus and ovaries removed. REVIEW OF SYSTEMS: See HPI for pertinent positives and negatives. A total of ten systems were reviewed and were otherwise negative. PMHx/PSHx: See Below SOCIAL HISTORY: See Below. PHYSICAL EXAM: GENERAL: Patient is in significant distress from pain, hyperventilating. HEENT: No acute trauma, normocephalic atraumatic, mucous membranes moist, no nasal congestion, no scleral icterus. NECK: No stridor, no adenopathy, no meningismus, trachea is midline. LUNGS: Clear to auscultation bilaterally, no wheeze, no rhonchi, breath sounds equal. Hyperventilating. HEART: Without murmurs gallops or rubs, regular rate and rhythm. ABDOMEN: Soft, diffusely mildly tender, no hernias, no peritonitis. Mild abdominal distention noted. EXTREMITIES: No cyanosis or edema, full range of motion of all the joints without pain or difficulty, no signs for acute trauma. NEUROLOGIC: Oriented x 3, no acute motor or sensory deficits, no focal weakness. SKIN: No rash, no jaundice, no diaphoresis. DIFFERENTIAL DIAGNOSIS: Diverticulitis, UTI, obstruction, mesenteric ischemia, aortic pathology, inflammatory bowel disease, renal colic, PUD, pancreatitis, biliary pathology, hernia, volvulus, constipation, as well as other pathologies. EMERGENCY DEPARTMENT COURSE/PROCEDURES: ECG: Indication was abdominal pain. The ECG shows a normal sinus rhythm with a rate of 66. There is no ST elevation, no PVCs. The QTc is 480. Repeat EKG: Indication was elevated troponin. The ECG shows a normal sinus rhythm with a rate of 72. There is no ST elevation, no PVCs. There is some no nspecific ST change noted in the inferior leads. QTC is 512. Compared to the ECG from earlier today, I see no significant change. Continuous Cardiac Monitoring: An order was placed for continuous cardiac monitoring. The monitor shows a rate of 62 with normal sinus rhythm. MEDICAL DECISION MAKING: There is a moderate leukocytosis, this could be consistent with infection or just her pain. Hemoglobin was normal. Platelet count was normal. No signif icant electrolyte abnormality or kidney failure. No concerning liver enzyme elevation. No evidence for pancreatitis. ECG showed a sinus rhythm, no acute ischemia. Repeat EKG showed similar findings. Cardiac enzyme testing x1 is slightly elevated consistent with cardiac strain/injury or possibly mismatch. Abdominal and pelvis CT angiogram did not show any bowel obstruction, no acute surgical process noted, no evidence for stenosis/mesenteric ischemia. The patient presented quite uncomfortable. She was hypertensive. She received IV saline, IV Phenergan, IV Zofran and IV Dilaudid. The patient does feel improved since the above medications were given. She is more comfortable. Her blood pressure has improved. Given the severe discomfort, given the unknown cause of her presentation, given the leukocytosis and the elevated troponin, I do think a hospital stay is warranted. I spoke to the patient, I spoke with case management. The on-call hospitalist was consulted. Past Med/Surg History Medical History (Updated 09/06/21 @ 15:30 by Kael Najera MD) Degenerative disc disease Depression Endometriosis Fibromyalgia GERD (gastroesophageal reflux disease) CONTROLLED Hyperlipidemia Hypertension Irritable bowel syndrome Obesity Osteoarthritis Restless leg syndrome Surgical History History of appendectomy History of bunionectomy RT/LEFT History of carpal tunnel release RT/LEFT History of colonoscopy History of dilatation and curettage History of esophagogastroduodenoscopy (EGD) History of left hip replacement 09/28/18: SAB x1 at L4-L5 at [facility] History of tonsillectomy History of tooth extraction History of total abdominal hysterectomy and bilateral salpingo-oophorectomy History of total knee replacement RT Family History Mother Family history of diabetes mellitus Grandfather Family history of diabetes mellitus Family/Other Family history of diabetes mellitus Social History Smoking Status: Former smoker Tobacco Type: Cigarettes Second Hand Exposure: Yes (PREVIOUS EXPOSURE); Hx Alcohol Use: No Hx Substance Use: No Preferred Language: Guyanese Communication Ability: Effective Visual Impairment: No Limitations Hearing Ability: Normal 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 Beliefs That Will Affect Care: None marital status: Current Living Situation: Spouse Feels Safe at Home: Yes Assistive Devices: Walker Allergies Allergies Allergy/AdvReac Type Severity Reaction Status Date / Time latex Allergy Mild RASH Verified 09/06/21 14:26 nickel Allergy Mild DERMATITIS Verified 09/06/21 14:26 WITH METAL (CHEAP JEWELRY) Quinolones Allergy Unknown UNKNOWN Verified 09/06/21 14:26 REACTION soy Allergy Unknown RASH/SKIN Verified 09/06/21 14:26 IRRITATION NSAIDS (Non-Steroidal AdvReac Intermediate DIARRHEA/IBS Verified 09/06/21 14:26 Anti-Inflamma (WITH [facility] USAGE) Home Meds Home Medications Medication Instructions Recorded Confirmed ascorbic acid (vitamin C) 500 mg 500 mg PO BID 09/20/18 09/06/21 tablet (Vitamin C) calcium carbonate-vitamin D3 600 1 cap PO PM 09/20/18 09/06/21 mg calcium-200 unit capsule (Calcium 600 + D(3)) duloxetine 60 mg capsule,delayed 60 mg PO QAM 09/20/18 09/06/21 release ferrous sulfate 325 mg (65 mg 325 mg PO QAM 09/20/18 09/06/21 iron) tablet (iron) losartan 100 mg tablet 100 mg PO QAM 09/20/18 09/06/21 magnesium 250 mg tablet 250 mg PO HS 09/20/18 09/06/21 multivitamin 1 tab PO QAM 09/20/18 09/06/21 zinc 50 mg tablet 50 mg PO HS 09/20/18 09/06/21 atorvastatin 20 mg tablet 20 mg PO PM 07/14/19 09/06/21 temazepam 15 mg capsule 15 mg PO HS 07/14/19 09/06/21 baclofen 10 mg tablet 10 mg PO BID PRN 04/23/21 09/06/21 ropinirole 1 mg tablet 2 mg PO HS 04/23/21 09/06/21 acetaminophen 500 mg tablet 1,000 mg PO Q8 PRN 09/04/21 09/06/21 (Tylenol Extra Strength) metoprolol tartrate 50 mg tablet 50 mg PO BID 09/04/21 09/06/21 Results & Data (ED) Vital Signs Vital Signs - 24 hr 09/06/21 11:20 09/06/21 12:00 09/06/21 13:00 Temperature 36.8 C Temperature Source Oral Pulse Rate 62 65 78 Pulse Rate from SpO2 Sensor Pulse Rhythm Regular Pulse Strength Normal Respiratory Rate 16 28 H 16 Respiratory Effort / Characteristics Non-Labored Spontaneous Respiratory Depth Normal Respiratory Pattern Regular Blood Pressure 209/137 H 198/122 H 157/121 H Blood Pressure Mean 161 147 133 Blood Pressure Position Lying Pulse Oximetry 96 100 96 Oxygen Delivery Method Room Air Sepsis Recent Fever Within 48 Hours No Sepsis New/Unexplained Change in Mental Status N/A Sepsis Action Taken by Nursing No Action Required 09/06/21 13:30 09/06/21 14:00 09/06/21 14:30 Temperature Temperature Source Pulse Rate 81 71 67 Pulse Rate from SpO2 Sensor 82 71 67 Pulse Rhythm Pulse Strength Respiratory Rate 13 16 18 Respiratory Effort / Characteristics Respiratory Depth Respiratory Pattern Blood Pressure 120/87 131/73 97/48 L Blood Pressure Mean 98 92 64 Blood Pressure Position Pulse Oximetry 94 99 98 Oxygen Delivery Method Sepsis Recent Fever Within 48 Hours Sepsis New/Unexplained Change in Mental Status Sepsis Action Taken by Nursing 09/06/21 15:00 Temperature Temperature Source Pulse Rate 70 Pulse Rate from SpO2 Sensor 69 Pulse Rhythm Pulse Strength Respiratory Rate 15 Respiratory Effort / Characteristics Respiratory Depth Respiratory Pattern Blood Pressure 100/47 L Blood Pressure Mean 64 Blood Pressure Position Pulse Oximetry 98 Oxygen Delivery Method Sepsis Recent Fever Within 48 Hours Sepsis New/Unexplained Change in Mental Status Sepsis Action Taken by Snf Medications Current Medication List: was personally reviewed by me Laboratory Data Attestation: I reviewed the patient's lab results. Result diagrams: 09/06/21 11:30 09/06/21 11:30 Lab Results 09/06/21 09/06/21 09/06/21 Range/Units 11:30 11:30 13:00 WBC 15.10 H (4.8-10.8) K/uL RBC 4.55 (4.2-5.4) M/uL Hgb 13.9 (12.0-16.0) g/dL Hct 40.5 (37-47) % MCV 89.0 (80-100) fL MCH 30.5 (25-34) pg MCHC 34.3 (32-36) g/dL RDW Std Deviation 45.7 (36.4-46.3) fL RDW Coeff of Marcelo 14.0 (11.5-14.5) % Plt Count 301 (130-400) K/uL MPV 11.0 H (7.4-10.4) fL Immature Gran % (Auto) 0.2 % Neut % (Auto) 75.7 % Lymph % (Auto) 15.9 % [place] % (Auto) 7.6 % Eos % (Auto) 0.5 % Baso % (Auto) 0.1 % Neut # (Auto) 11.43 H (1.4-6.5) K/uL Lymph # (Auto) 2.40 (1.2-3.4) K/uL [place] # (Auto) 1.15 H (0.11-0.59) K/uL Eos # (Auto) 0.07 (0-0.5) K/uL Baso # (Auto) 0.02 (0-0.2) K/uL Immature Gran # (Auto) 0.03 H (0.00-0.02) K/uL Sodium 141 (136-145) mmol/L Potassium 3.5 (3.5-5.1) mmol/L Chloride 111 H (98-107) mmol/L Carbon Dioxide 21 (21-32) mmol/L Anion Gap 9.0 (3-11) BUN 16 (7-18) mg/dl Creatinine 0.87 (0.6-1.2) mg/dl Est Cr Clr Drug Dosing 65.9 ml/min Est GFR ( Amer) 80.5 ml/min Est GFR (Non-Af Amer) 69.4 ml/min BUN/Creatinine Ratio 18.3 (10-20) Glucose 129 H (70-99) mg/dl Lactate 2.0 (0.4-2.0) mmol/L Calcium 9.4 (8.5-10.1) mg/dl Total Bilirubin 0.5 (0.2-1) mg/dl AST 32 (15-37) U/L ALT 19 (12-78) U/L Alkaline Phosphatase 66 (45-117) U/L Troponin I 0.201 H* (0-0.045) ng/ml Total Protein 7.1 (6.4-8.2) gm/dl Albumin 3.9 (3.4-5.0) gm/dl Globulin 3.2 (2.5-4.0) gm/dl Albumin/Globulin Ratio 1.2 (0.9-2) Lipase 191 (73-393) U/L COVID-19 Eval Order 09/06/21 Range/Units 14:19 WBC (4.8-10.8) K/uL RBC (4.2-5.4) M/uL Hgb (12.0-16.0) g/dL Hct (37-47) % MCV (80-100) fL MCH (25-34) pg MCHC (32-36) g/dL RDW Std Deviation (36.4-46.3) fL RDW Coeff of Marcelo (11.5-14.5) % Plt Count (130-400) K/uL MPV (7.4-10.4) fL Immature Gran % (Auto) % Neut % (Auto) % Lymph % (Auto) % [place] % (Auto) % Eos % (Auto) % Baso % (Auto) % Neut # (Auto) (1.4-6.5) K/uL Lymph # (Auto) (1.2-3.4) K/uL [place] # (Auto) (0.11-0.59) K/uL Eos # (Auto) (0-0.5) K/uL Baso # (Auto) (0-0.2) K/uL Immature Gran # (Auto) (0.00-0.02) K/uL Sodium (136-145) mmol/L Potassium (3.5-5.1) mmol/L Chloride (98-107) mmol/L Carbon Dioxide (21-32) mmol/L Anion Gap (3-11) BUN (7-18) mg/dl Creatinine (0.6-1.2) mg/dl Est Cr Clr Drug Dosing ml/min Est GFR ( Amer) ml/min Est GFR (Non-Af Amer) ml/min BUN/Creatinine Ratio (10-20) Glucose (70-99) mg/dl Lactate (0.4-2.0) mmol/L Calcium (8.5-10.1) mg/dl Total Bilirubin (0.2-1) mg/dl AST (15-37) U/L ALT (12-78) U/L Alkaline Phosphatase (45-117) U/L Troponin I (0-0.045) ng/ml Total Protein (6.4-8.2) gm/dl Albumin (3.4-5.0) gm/dl Globulin (2.5-4.0) gm/dl Albumin/Globulin Ratio (0.9-2) Lipase (73-393) U/L COVID-19 Eval Order RESPNP at [facility] Administered Medications Hydromorphone HCl (Hydromorphone Inj 0.5 Mg/0.5 Ml Syr) 0.5 mg IV Q15M PRN PRN Reason: Pain Stop: 09/20/21 12:17 Last Admin: 09/06/21 13:28 Dose: 0.5 mg Documented by: [id number] Admin: 09/06/21 13:03 Dose: 0.5 mg Documented by: [id number] Discontinued Medications Hydromorphone HCl (Hydromorphone Inj 1 Mg/Ml Syringe) 1 mg IV NOW STA Stop: 09/06/21 12:19 Last Admin: 09/06/21 12:27 Dose: 1 mg Documented by: [id number] Sodium Chloride (Nss) 500 mls @ 999 mls/hr IV .Q31M STA Stop: 09/06/21 12:48 Last Infusion: 09/06/21 13:00 Dose: 0 mls/hr Documented by: [id number] Admin: 09/06/21 12:27 Dose: 999 mls/hr Documented by: [id number] Promethazine HCl (Phenergan) 12.5 mg in 50.5 mls @ 202 mls/hr IV NOW STA Stop: 09/06/21 12:32 Last Infusion: 09/06/21 12:45 Dose: 0 mls/hr Documented by: [id number] Admin: 09/06/21 12:28 Dose: 202 mls/hr Documented by: [id number] Ioversol (Optiray 320 125ml) 119 ml IV ONCE ONE Stop: 09/06/21 13:25 Last Admin: 09/06/21 13:25 Dose: 119 ml Documented by: [id number] Ondansetron HCl (Ondansetron Inj 2 Mg/Ml 2 Ml Vial) 4 mg IV NOW STA Stop: 09/06/21 12:19 Last Admin: 09/06/21 12:28 Dose: 4 mg Documented by: [id number] Imaging Data Radiologist's Impression: Abdomen/Pelvis CTA 09/06/21 12:18 CT ANGIOGRAM OF THE ABDOMEN AND PELVIS CLINICAL HISTORY: Postprandial abdominal pain. COMPARISON STUDY: Abdominal CT dated 09/04/2021. TECHNIQUE: Following the IV administration of 119 cc of Optiray 320, CT angiogram of the abdomen and pelvis was performed from the lung bases the proximal femora. Images are reviewed in the axial, sagittal, and coronal planes. 3-D MIPS images are created and assessed. IV contrast was administered without complication. A dose lowering technique was utilized adhering to the principles of ALARA. CT DOSE: 532.05 mGy.cm FINDINGS: Lower chest: The heart is normal in size and without pericardial effusion. The lung bases are clear noting mild bibasilar scarring/atelectasis. Liver: The contrast-enhanced liver is top normal in size measuring 17.7 cm in length. The liver is normal in contour and attenuation. There is no intrahepatic biliary ductal dilatation. Gallbladder: Surgically absent noting clips in the gallbladder fossa. Spleen: Normal in size and attenuation noting heterogeneous arterial phase enhancement. Pancreas: Unremarkable. Adrenal glands: Unremarkable. Kidneys: The contrast enhanced kidneys are normal in size and without hydronephrosis. The kidneys enhance symmetrically. Abdominal aorta and iliac arteries: The abdominal aorta is normal in course and caliber noting moderate atherosclerotic calcification. There is less than 50% stenosis of the right common iliac artery. The abdominal aorta and iliac arteries are otherwise widely patent. No dissection is seen. Major branches of the abdominal aorta: The celiac trunk, superior mesenteric, and inferior mesenteric arteries are widely patent. Hepatic arterial anatomy is conventional. The splenic artery is widely patent. Single bilateral renal arteries are widely patent. Bowel: There is no bowel obstruction. The cecum is located in the pelvis. The appendix is not identified and reported surgically absent. Peritoneum: There is no intraperitoneal free air or abdominal ascites. There is a small fat-containing umbilical hernia. Lymphadenopathy: None. Pelvic viscera: Evaluation of the pelvis is degraded by streak artifact from a left hip arthroplasty. The bladder is normal as visualized. The uterus is surgically absent. No adnexal lesion is seen. Skeletal structures: The skeletal structures are osteopenic. There is moderate lumbosacral spondylosis. No destructive bony lesions are seen. A left hip arthroplasty is in place. IMPRESSION: 1. Unremarkable CT angiogram of the abdominal aorta and its major branches. 2. No acute infectious or inflammatory findings are identified in the abdomen or pelvis. ACT 112: Negative or not required by law. Electronically signed by: Kael Mittal M.D. 09/06/2021 1:48 PM Discharge Plan Visit Data Chief Complaint: Abdominal Pain Stated Complaint: Upper Abd Pain/diaphoretic ED Provider: Kael Najera Discharge Problem: Diffuse abdominal pain, Vomiting, Hypertension, Elevated troponin Patient Disposition: Admitted As Inpatient Condition: Fair Forms Stand Alone Forms: [facility] AnonymAsk Prescriptions Prescriptions: No Action multivitamin Tablet 1 tab PO QAM RF: 0 ascorbic acid (vitamin C) [Vitamin C] 500 mg Tablet 500 mg PO BID RF: 0 ferrous sulfate [iron] 325 mg (65 mg iron) Tablet 325 mg PO QAM RF: 0 zinc 50 mg Tablet 50 mg PO HS RF: 0 magnesium 250 mg Tablet 250 mg PO HS RF: 0 losartan 100 mg Tablet 100 mg PO QAM RF: 0 duloxetine 60 mg Capsule,Delayed Release(Dr/Ec) 60 mg PO QAM RF: 0 Calcium 600 + D(3) 600 mg calcium- 200 unit Capsule 1 cap PO PM RF: 0 atorvastatin 20 mg Tablet 20 mg PO PM RF: 0 temazepam 15 mg Capsule 15 mg PO HS RF: 0 ropinirole 1 mg tablet 2 mg PO HS RF: 0 baclofen 10 mg tablet 10 mg PO BID PRN (Reason: Muscle Spasm) RF: 0 metoprolol tartrate 50 mg tablet 50 mg PO BID RF: 0 acetaminophen [Tylenol Extra Strength] 500 mg tablet 1,000 mg PO Q8 PRN (Reason: Pain) RF: 0 Referrals Referrals: Mai Lyn PA-C [Primary Care Provider] -
[2021-09-06 12:54] LABS: Basophils # (auto) 0.02 K/uL (0-0.2); Basophils % (auto) 0.1 %; Eosinophils # (auto) 0.07 K/uL (0-0.5); Eosinophils % (auto) 0.5 %; Hematocrit (blood only) 40.5 % (37-47); Hemoglobin 13.9 g/dL (12.0-16.0); Immature Granulocytes # (auto) 0.03 K/uL (0.00-0.02); Immature Granulocytes % (auto) 0.2 %; Lymphocytes % (auto) 15.9 %; Mean Corpuscular Hemoglobin 30.5 pg (25-34); Mean Corpuscular Hgb Conc 34.3 g/dL (32-36); Monocytes # (auto) 1.15 K/uL (0.11-0.59); Monocytes % (auto) 7.6 %; Neutrophils # (auto) 11.43 K/uL (1.4-6.5); Neutrophils % (auto) 75.7 %; Platelet Count 301 K/uL (130-400); RDW Standard Deviation 45.7 fL (36.4-46.3); Red Blood Count 4.55 M/uL (4.2-5.4)
[2021-09-06 13:02] LABS: Albumin Level 3.9 gm/dl (3.4-5.0); BUN Creatinine Ratio 18.3 (10-20); Calcium 9.4 mg/dl (8.5-10.1); Creatinine Clr Calc Pharmacy 65.9 ml/min; Est GFR (African American) 80.5 ml/min; Est GFR (Non-African American) 69.4 ml/min; Potassium 3.5 mmol/L (3.5-5.1)
[2021-09-06] MEDS: HYDROmorphone INJ 0.5 MG/0.5 ML SYR IV PRN ×2 (13:03→13:28)
[2021-09-06 13:24] LABS: Albumin Globulin Ratio 1.2 (0.9-2); Bilirubin,Total 0.5 mg/dl (0.2-1); Globulin 3.2 gm/dl (2.5-4.0); Total Protein 7.1 gm/dl (6.4-8.2); Troponin I 0.201 ng/ml (0-0.045)
[2021-09-06] MEDS ORDERED: OPTIRAY 320 125ml IV ONE (13:24)
--- NOTE | 2021-09-06 13:49 | CT Scan Report ---
CT ANGIOGRAM OF THE ABDOMEN AND PELVIS CLINICAL HISTORY: Postprandial abdominal pain. COMPARISON STUDY: Abdominal CT dated 09/04/2021. TECHNIQUE: Following the IV administration of 119 cc of Optiray 320, CT angiogram of the abdomen and pelvis was performed from the lung bases the proximal femora. Images are reviewed in the axial, sagit estrella, and coronal planes. 3-D MIPS images are created and assessed. IV contrast was administered witho ut complication. A dose lowering technique was utilized adhering to the principles of ALARA. CT DOSE: 532.05 mGy.cm FINDINGS: Lower chest: The heart is normal in size and without pericardial effusion. The lung bases are clear n oting mild bibasilar scarring/atelectasis. Liver: The contrast-enhanced liver is top normal in size measuring 17.7 cm in length. The liver is no rmal in contour and attenuation. There is no intrahepatic biliary ductal dilatation. Gallbladder: Surgically absent noting clips in the gallbladder fossa. Spleen: Normal in size and attenuation noting heterogeneous arterial phase enhancement. Pancreas: Unremarkable. Adrenal glands: Unremarkable. Kidneys: The contrast enhanced kidneys are normal in size and without hydronephrosis. The kidneys enh ance symmetrically. Abdominal aorta and iliac arteries: The abdominal aorta is normal in course and caliber noting modera te atherosclerotic calcification. There is less than 50% stenosis of the right common iliac artery. T he abdominal aorta and iliac arteries are otherwise widely patent. No dissection is seen. Major branches of the abdominal aorta: The celiac trunk, superior mesenteric, and inferior mesenteric arteries are widely patent. Hepatic arterial anatomy is conventional. The splenic artery is widely p atent. Single bilateral renal arteries are widely patent. Bowel: There is no bowel obstruction. The cecum is located in the pelvis. The appendix is not identi fied and reported surgically absent. Peritoneum: There is no intraperitoneal free air or abdominal ascites. There is a small fat-containin g umbilical hernia. Lymphadenopathy: None. Pelvic viscera: Evaluation of the pelvis is degraded by streak artifact from a left hip arthroplasty. The bladder is normal as visualized. The uterus is surgically absent. No adnexal lesion is seen. Skeletal structures: The skeletal structures are osteopenic. There is moderate lumbosacral spondylosi s. No destructive bony lesions are seen. A left hip arthroplasty is in place. IMPRESSION: 1. Unremarkable CT angiogram of the abdominal aorta and its major branches. 2. No acute infectious or inflammatory findings are identified in the abdomen or pelvis. ACT 112: Negative or not required by law. Electronically signed by: Kael Mittal M.D. 09/06/2021 1:48 PM
--- NOTE | 2021-09-06 14:46 | History & Physical Report ---
Date of Service September 06, 2021 Assessment & Plan (1) Abdominal pain: Plan: Patient is 65-year-old female with PMH HTN, HLD, GERD, depression, fibromyalgia, IBS presented to ER with complaint of abdominal pain, vomiting, diarrhea today after eating Today in ER afebrile, P: 62, BP 209/137, 96% on room air. WBC: 15, lactate: 2.0, lipase: 191, liver functions WNL. Troponin: 0.2. CTA abdomen pelvis unremarkable. In ER given Dilaudid, Zofran, 500 mL NSS. Patient without any further abdominal pain, vomiting or diarrhea. Denies any chest pain. IVF Dilaudid prn pain NPO at this time Pepcid IV BID, since PPI in low supply CBC, CMP in am Obtains c-diff, stool studies if recurrent diarrhea (2) Elevated troponin: Plan: Troponin: 0.2. EKG sinus rhythm, T wave inversion in septal leads. R/O ACS. Risk factors: HTN, hyperlipidemia. DDX demand ischemia Repeat EKG in am Will trend troponin Echo Lipid panel in am, continue statin Repeat EKG for CP Consider cardiology consult if troponins elevate (3) Hypertension: Plan: Really quite hypertensive in ER, patient was in significant abdominal pain. Since pain medication abdominal pain has resolved and BP is 100/47 Continue losartan, metoprolol tartrate (4) Hyperlipidemia: Plan: Continue atorvastatin (5) Fibromyalgia: Plan: Continue duloxetine (6) Restless leg syndrome: Plan: Continue ropinirole DVT Prophylaxis -Heparin SQ Full Code as per discussion with pt Follows with Girish Mancilla PA-C for routine care Pt was seen and care coordinated with Dr Wu. See addendum Admission and Anticipated Discharge Date Admission Date: Attending Addendum: delayed entry date of service noted above care coordinated with TATI mullen please refer to her notes for full details, I agree with her notes patient seen and examined, records reviewed by myself as well on exam, patient seen resting in bed, comfortable states abdominal pain is much better no nausea/vomiting no chest pain, dyspnea, palpitations no other symptoms VS noted and reviewed oriented x 2, not in distress, speaks in sentences with no effort nor accessory muscle use normal rate, regular rhythm, no murmurs clear breath sounds bilaterally non distended, soft, mild epigastric tenderness no bipedal edema, erythema, warmth no neuro deficits WBC 15 Hg 13 Crea 0.87 ASSESSMENT AND PLAN ABDOMINAL PAIN normal LFTs CT abdomen GI consult NPO IV fluids RO ACS trend troponin echo ekg Cardio consult other diagnoses and plan of care as per TATI Mullen notes Rigoberto Wu MD History of Present Illness Chief Complaint: Abdominal pain Primary Care Provider: Girish Mancilla PA-C Patient is 65-year-old female with PMH HTN, HLD, GERD, depression, fibromyalgia, IBS presented to ER with complaint of abdominal pain today. Patient states 2 days ago had epigastric pain, vomiting and 3 episodes of diarrhea and wasnt seen in ER 09/04/2021. Had unremarkable CT abdomen and pelvis. There was concern for possible mesenteric ischemia and patient denied having CTA abdomen and pelvis. She was treated with morphine, Zofran, Dilaudid. She had negative troponin at that time. Patient signed out AMA. Patient reports yesterday felt fine and was able to eat. Today she ate a piece of toast with butter and jam and after started with epigastric and lower abdominal pain and diaphoresis. Reports vomiting x3 episodes and watery diarrhea with mucus x5-6 episodes. Does not drink well water. Denies fever/chills, hematemesis, hematochezia, melena REAL, dizziness, syncope, vision changes, neck pain, CP, SOB, orthopnea, palpitations, cough, sore throat, choking, otalgia, rhinorrhea, paresthesias, weakness, extremity weakness, extremity edema, rashes, urinary symptoms. Denies ill contacts, recent travel, eating undercooked foods. Today in ER afebrile, P: 62, BP 209/137, 96% on room air. Is reported patient was hyperventilating secondary to severe abdominal pain. WBC: 15, lactate: 2.0, lipase: 191, liver functions WNL. Troponin: 0.2. CTA abdomen pelvis unremarkable. EKG sinus rhythm, T wave inversion in septal leads. In ER given Dilaudid, Zofran, 500 mL NSS. Patient without any further abdominal pain, vomiting or diarrhea. Denies any chest pain. Allergies Allergy/AdvReac Type Severity Reaction Status Date / Time latex Allergy Mild RASH Verified 09/06/21 14:26 nickel Allergy Mild DERMATITIS Verified 09/06/21 14:26 WITH METAL (CHEAP JEWELRY) Quinolones Allergy Unknown UNKNOWN Verified 09/06/21 14:26 REACTION soy Allergy Unknown RASH/SKIN Verified 09/06/21 14:26 IRRITATION NSAIDS (Non-Steroidal AdvReac Intermediate DIARRHEA/IBS Verified 09/06/21 14:26 Anti-Inflamma (WITH PENITENTIARY USAGE) Home Medications Medication Instructions Recorded Confirmed Type ascorbic acid (vitamin C) 500 mg 500 mg PO BID 09/20/18 09/06/21 History tablet (Vitamin C) calcium carbonate-vitamin D3 600 1 cap PO PM 09/20/18 09/06/21 History mg calcium-200 unit capsule (Calcium 600 + D(3)) duloxetine 60 mg capsule,delayed 60 mg PO QAM 09/20/18 09/06/21 History release ferrous sulfate 325 mg (65 mg 325 mg PO QAM 09/20/18 09/06/21 History iron) tablet (iron) losartan 100 mg tablet 100 mg PO PM 09/20/18 09/06/21 History magnesium 250 mg tablet 250 mg PO HS 09/20/18 09/06/21 History multivitamin 1 tab PO QAM 09/20/18 09/06/21 History zinc 50 mg tablet 50 mg PO HS 09/20/18 09/06/21 History atorvastatin 20 mg tablet 20 mg PO PM 07/14/19 09/06/21 History baclofen 10 mg tablet 10 mg PO BID PRN 04/23/21 09/06/21 History ropinirole 1 mg tablet 1 mg PO UD 04/23/21 09/06/21 History acetaminophen 500 mg tablet 1,000 mg PO Q8 PRN 09/04/21 09/06/21 History (Tylenol Extra Strength) metoprolol tartrate 50 mg tablet 50 mg PO BID 09/04/21 09/06/21 History trazodone 50 mg tablet 50 mg PO HS 09/06/21 09/06/21 History Past Med/Surg History Medical History (Updated 09/08/21 @ 10:09 by Kyler Owens DO) Degenerative disc disease Depression Endometriosis Fibromyalgia GERD (gastroesophageal reflux disease) CONTROLLED Hyperlipidemia Hypertension Irritable bowel syndrome Obesity Osteoarthritis Restless leg syndrome Surgical History History of appendectomy History of bunionectomy RT/LEFT History of carpal tunnel release RT/LEFT History of colonoscopy History of dilatation and curettage History of esophagogastroduodenoscopy (EGD) History of left hip replacement 09/28/18: SAB x1 at L4-L5 at [facility] History of tonsillectomy History of tooth extraction History of total abdominal hysterectomy and bilateral salpingo-oophorectomy History of total knee replacement RT Family History Mother Family history of diabetes mellitus Grandfather Family history of diabetes mellitus Family/Other Family history of diabetes mellitus Social History Smoking Status: Former smoker Tobacco Type: Cigarettes Smoking End Date: 1979; Second Hand Exposure: No; Do You Dip or Chew Tobacco: No; Hx Alcohol Use: No Hx Substance Use: No Preferred Language: [place]an Communication Ability: Effective Visual Impairment: No Limitations Hearing Ability: Normal Floor Manager Required: No Beliefs That Will Affect Care: None marital status: Current Living Situation: Spouse Current Living Situation Comment: With christ chester Other Information That Helps Us Care for You: No Feels Safe at Home: Yes Safety Concerns: Feels Safe At This Time Assistive Devices: None Review of Systems Review of Systems: All systems reviewed & are unremarkable except as noted in HPI & below Physical Exam Physical Exam: General: no distress, WDWN Head: normocephalic, atraumatic Eyes: PERRL, EOM's intact, conjunctiva non-injected, anicteric ENT: normal inspection external ears, nose, mucous membranes moist Neck: supple, trachea midline Lungs: clear, no respiratory distress, no wheezing/rhonchi/rales CV: RRR, no murmur, no pretibial edema Abd: normal BS, soft, non-tender to palpation at this time Ext: no cyanosis, no calf tenderness Neuro: A&O x 3, no focal deficits noted, normal affect Skin: warm, dry Results & Data Results & Data ([facility]) Vital Signs (Past 12 Hours) Vital Signs Temp Pulse Resp BP Pulse Ox 09/06/21 14:00 71 16 131/73 99 09/06/21 13:30 81 13 120/87 94 09/06/21 13:00 78 16 157/121 H 96 09/06/21 12:00 65 28 H 198/122 H 100 09/06/21 11:20 36.8 C 62 16 209/137 H 96 Laboratory Results Short CBC 09/06/21 Range/Units 11:30 WBC 15.10 H (4.8-10.8) K/uL Hgb 13.9 (12.0-16.0) g/dL Hct 40.5 (37-47) % Plt Count 301 (130-400) K/uL BMP 09/06/21 11:30 Sodium 141 Potassium 3.5 Chloride 111 H Carbon Dioxide 21 BUN 16 Creatinine 0.87 Glucose 129 H Calcium 9.4 Cardiac Enzymes 09/06/21 Range/Units 11:30 Troponin I 0.201 H* (0-0.045) ng/ml Liver Function 09/06/21 Range/Units 11:30 Total Bilirubin 0.5 (0.2-1) mg/dl AST 32 (15-37) U/L ALT 19 (12-78) U/L Alkaline Phosphatase 66 (45-117) U/L Albumin 3.9 (3.4-5.0) gm/dl Diagnostic Findings Abdomen/Pelvis CTA 09/06/21 12:18 CT ANGIOGRAM OF THE ABDOMEN AND PELVIS CLINICAL HISTORY: Postprandial abdominal pain. COMPARISON STUDY: Abdominal CT dated 09/04/2021. TECHNIQUE: Following the IV administration of 119 cc of Optiray 320, CT angiogram of the abdomen and pelvis was performed from the lung bases the proximal femora. Images are reviewed in the axial, sagittal, and coronal planes. 3-D MIPS images are created and assessed. IV contrast was administered without complication. A dose lowering technique was utilized adhering to the principles of ALARA. CT DOSE: 532.05 mGy.cm FINDINGS: Lower chest: The heart is normal in size and without pericardial effusion. The lung bases are clear noting mild bibasilar scarring/atelectasis. Liver: The contrast-enhanced liver is top normal in size measuring 17.7 cm in length. The liver is normal in contour and attenuation. There is no intrahepatic biliary ductal dilatation. Gallbladder: Surgically absent noting clips in the gallbladder fossa. Spleen: Normal in size and attenuation noting heterogeneous arterial phase enhancement. Pancreas: Unremarkable. Adrenal glands: Unremarkable. Kidneys: The contrast enhanced kidneys are normal in size and without hydronephrosis. The kidneys enhance symmetrically. Abdominal aorta and iliac arteries: The abdominal aorta is normal in course and caliber noting moderate atherosclerotic calcification. There is less than 50% stenosis of the right common iliac artery. The abdominal aorta and iliac arteries are otherwise widely patent. No dissection is seen. Major branches of the abdominal aorta: The celiac trunk, superior mesenteric, and inferior mesenteric arteries are widely patent. Hepatic arterial anatomy is conventional. The splenic artery is widely patent. Single bilateral renal arteries are widely patent. Bowel: There is no bowel obstruction. The cecum is located in the pelvis. The appendix is not identified and reported surgically absent. Peritoneum: There is no intraperitoneal free air or abdominal ascites. There is a small fat-containing umbilical hernia. Lymphadenopathy: None. Pelvic viscera: Evaluation of the pelvis is degraded by streak artifact from a left hip arthroplasty. The bladder is normal as visualized. The uterus is surgically absent. No adnexal lesion is seen. Skeletal structures: The skeletal structures are osteopenic. There is moderate lumbosacral spondylosis. No destructive bony lesions are seen. A left hip arthroplasty is in place. IMPRESSION: 1. Unremarkable CT angiogram of the abdominal aorta and its major branches. 2. No acute infectious or inflammatory findings are identified in the abdomen or pelvis. ACT 112: Negative or not required by law. Electronically signed by: Kale Mittal M.D. 09/06/2021 1:48 PM ECG Rate (beats per minute): 72 Rhythm: sinus rhythm Findings: + T-wave inversion (Septal) (1) Abdominal pain Abdominal location: left lower quadrant Qualified Code(s): R10.32 - Left lower quadrant pain (2) Hypertension Hypertension type: unspecified Qualified Code(s): I10 - Essential (primary) hypertension
[2021-09-06 15:25] LABS: Adenovirus PCR Not Detected (NotDetected); Bordetella parapertussis PCR Not Detected (NotDetected); Bordetella pertussis PCR Not Detected (NotDetected); Chlamydia pneumoniae PCR Not Detected (NotDetected); Coronavirus 229E PCR Not Detected (NotDetected); Coronavirus CoV-2 (COVID19)PCR Not Detected (NotDetected); Coronavirus HKU1 PCR Not Detected (NotDetected); Coronavirus NL63 PCR Not Detected (NotDetected); Coronavirus OC43PCR Not Detected (NotDetected); Human Metapneumovirus PCR Not Detected (NotDetected); Influenza A PCR Not Detected (NotDetected); Influenza B PCR Not Detected (NotDetected); Mycoplasma pneumoniae PCR Not Detected (NotDetected); Parainfluenza Virus 1 PCR Not Detected (NotDetected); Parainfluenza Virus 2 PCR Not Detected (NotDetected); Parainfluenza Virus 3 PCR Not Detected (NotDetected); Parainfluenza Virus 4 PCR Not Detected (NotDetected); Respiratory Syncytial VirusPCR Not Detected (NotDetected); Rhinovirus/Enterovirus PCR Not Detected (NotDetected)
--- NOTE | 2021-09-06 16:19 | Electrocardiogram Report ---
Test Reason : Blood Pressure : / mmHG Vent. Rate : 066 BPM Atrial Rate : 066 BPM P-R Int : 138 ms QRS Dur : 072 ms QT Int : 458 ms P-R-T Axes : 065 047 032 degrees QTc Int : 480 ms Poor data quality, interpretation may be adversely affected Normal sinus rhythm Nonspecific ST abnormality Abnormal ECG When compared with ECG of 04-SEP-2021 20:42, Nonspecific T wave abnormality now evident in Lateral leads Confirmed by Michael Rai ([id number]) on 09/06/2021 4:19:31 PM Referred By: REFERRED SELF Confirmed By:Michael Rai
--- NOTE | 2021-09-06 16:23 | Electrocardiogram Report ---
Test Reason : Blood Pressure : / mmHG Vent. Rate : 072 BPM Atrial Rate : 072 BPM P-R Int : 154 ms QRS Dur : 086 ms QT Int : 468 ms P-R-T Axes : 058 010 005 degrees QTc Int : 512 ms Normal sinus rhythm Prolonged QT Abnormal ECG When compared with ECG of 06-SEP-2021 11:46, (unconfirmed) No significant change was found Confirmed by Michael Rai ([id number]) on 09/06/2021 4:22:46 PM Referred By: REFERRED SELF Confirmed By:Michael Rai
[2021-09-06] MEDS ORDERED: HYDROmorphone INJ 0.5 MG/0.5 ML SYR IV PRN (19:45)
[2021-09-06] MEDS ORDERED: ACETAMINOPHEN 325 MG TAB PO PRN (19:45)
[2021-09-06] MEDS ORDERED: POLYETHYLENE (MIRALAX) 17 GM PACK PO PRN (19:45)
[2021-09-06] MEDS ORDERED: PROMETHAZINE HCL 12.5 MG in SODIUM CHLORIDE 0.9% 50 ML IV PRN (19:45)
[2021-09-06] MEDS ORDERED: BACLOFEN 10 MG TAB PO PRN (19:45)
[2021-09-06] MEDS ORDERED: LOSARTAN POTASSIUM 50 MG TAB PO SCH (21:00)
[2021-09-06 21:32] LABS: Appearance Urine Clear (Clear); Bacteria Urine Automated Negative (Negative); Bilirubin Urine Negative (Negative); Blood Urine Negative (Negative); Color Urine Dark Yellow; Epithelial Cell Urine Auto >30 /lpf (0-5); Glucose Urine UA Negative (Negative); Ketones Urine 1+ (Negative); Leukocyte Esterase Urine Negative (Negative); Nitrite Urine Negative (Negative); Protein Urine Trace (Negative); RBC Urine Automated 0-4 /hpf (0-4); Specific Gravity Urine > 1.045 (1.000-1.030); Urobilinogen Urine Negative (Negative)
[2021-09-06] MEDS ORDERED: INFLUENZA VACCINE HIGH DOSE PF 65+ 0.7 ML SYR IM ONE (21:34)
[2021-09-06] MEDS: METOPROLOL TARTRATE 50 MG TAB PO SCH (21:46)
[2021-09-06] MEDS: FAMOTIDINE 20 MG in SYRINGE 3 ML IV SCH (21:47)
[2021-09-06] MEDS: MAGNESIUM OXIDE 400 MG TAB PO SCH (21:47)
[2021-09-06] MEDS: traZODone HCL 50 MG TAB PO SCH (21:47)
[2021-09-06] MEDS: rOPINIRole HCL 1 MG TABLET PO SCH (21:47)
[2021-09-06] MEDS: ATORVASTATIN 20 MG TAB PO SCH (21:47)
[2021-09-06] MEDS: HEPARIN SOD 5,000 UNIT/0.5 ML VIAL SQ SCH (22:09)
[2021-09-06] MEDS: SODIUM CHLORIDE 0.9% 1000ML 1,000 ML IV SCH (22:09)
[2021-09-07 01:13] LABS: Hematocrit (blood only) 33.4 % (37-47); Hemoglobin 11.3 g/dL (12.0-16.0); Mean Corpuscular Hemoglobin 30.1 pg (25-34); Mean Corpuscular Hgb Conc 33.8 g/dL (32-36); Mean Corpuscular Volume 89.1 fL (80-100); Mean Platelet Volume 9.8 fL (7.4-10.4); Platelet Count 203 K/uL (130-400); RDW Coefficient of Variation 13.8 % (11.5-14.5); RDW Standard Deviation 45.5 fL (36.4-46.3); Red Blood Count 3.75 M/uL (4.2-5.4); White Blood Count 6.61 K/uL (4.8-10.8)
[2021-09-07 01:32] LABS: Albumin Level 3.1 gm/dl (3.4-5.0); BUN Creatinine Ratio 20.6 (10-20); Calcium 8.7 mg/dl (8.5-10.1); Creatinine Clr Calc Pharmacy 93.2 ml/min; Est GFR (African American) 110.7 ml/min; Est GFR (Non-African American) 95.5 ml/min; Potassium 3.2 mmol/L (3.5-5.1)
[2021-09-07 01:38] LABS: Albumin Globulin Ratio 1.1 (0.9-2); Bilirubin,Total 0.5 mg/dl (0.2-1); Globulin 2.9 gm/dl (2.5-4.0); Troponin I 0.315 ng/ml (0-0.045)
[2021-09-07] MEDS: SODIUM CHLORIDE 0.9% 1000ML 1,000 ML IV SCH (08:05)
[2021-09-07] MEDS: METOPROLOL TARTRATE 50 MG TAB PO SCH ×2 (08:48→21:39)
[2021-09-07] MEDS: DULoxetine HCL 60 MG CAP PO SCH (08:51)
[2021-09-07] MEDS: FAMOTIDINE 20 MG in SYRINGE 3 ML IV SCH ×2 (08:51→21:39)
[2021-09-07] MEDS: HEPARIN SOD 5,000 UNIT/0.5 ML VIAL SQ SCH ×2 (08:52→21:41)
[2021-09-07] MEDS: POTASSIUM CHLORIDE CRTAB 20 MEQ TABCR PO SCH ×2 (08:56→21:40)
[2021-09-07] MEDS ORDERED: Nursing to Pharmacy Communication SCH (09:15)
[2021-09-07] MEDS: LOSARTAN POTASSIUM 50 MG TAB PO SCH (10:36)
--- NOTE | 2021-09-07 10:45 | Cardiology Consultation ---
Date of Consultation September 07, 2021 Assessment & Plan (1) Abdominal pain: (2) Vomiting: (3) Elevated troponin: (4) Dehydration: The patient's troponin elevation is not due to acute coronary syndrome. Her presentation is more of a gastroenteritis. Her EKGs are unchanged. Troponin elevation on admission could possibly be related to dehydration from nausea and vomiting through most of the day yesterday. Would not recommend any additional cardiac testing at this time except the patient will have an echocardiogram completed which I will review. If the echo is unremarkable then no additional cardiac testing or treatment. History of Present Illness Attending Physician: Rigoberto Wu MD History of Present Illness This is a 65-year-old female with no significant cardiac history. Minimal risk factors. She is a non-smoker. No history of diabetes. She has treated hypertension and cholesterol. She was in her usual state of health and then on Thursday she developed nausea vomiting and diarrhea. She was seen at the emergency department who evaluated her and discharged her home. Patient states she did well until Thursday and then developed similar symptoms of nausea vomiting and diarrhea along with abdominal pain. She was admitted with the above complaints. Her EKG was unremarkable and unchanged. Cardiac markers on admission were borderline elevated and have not increased or decreased appreciably during her hospital stay. She currently has no symptoms. Allergies Allergy/AdvReac Type Severity Reaction Status Date / Time latex Allergy Mild RASH Verified 09/06/21 14:26 nickel Allergy Mild DERMATITIS Verified 09/06/21 14:26 WITH METAL (CHEAP JEWELRY) Quinolones Allergy Unknown UNKNOWN Verified 09/06/21 14:26 REACTION soy Allergy Unknown RASH/SKIN Verified 09/06/21 14:26 IRRITATION NSAIDS (Non-Steroidal AdvReac Intermediate DIARRHEA/IBS Verified 09/06/21 14:26 Anti-Inflamma (WITH RETIREMENT USAGE) Home Medications Medication Instructions Recorded Confirmed Type ascorbic acid (vitamin C) 500 mg 500 mg PO BID 09/20/18 09/06/21 History tablet (Vitamin C) calcium carbonate-vitamin D3 600 1 cap PO PM 09/20/18 09/06/21 History mg calcium-200 unit capsule (Calcium 600 + D(3)) duloxetine 60 mg capsule,delayed 60 mg PO QAM 09/20/18 09/06/21 History release ferrous sulfate 325 mg (65 mg 325 mg PO QAM 09/20/18 09/06/21 History iron) tablet (iron) losartan 100 mg tablet 100 mg PO PM 09/20/18 09/06/21 History magnesium 250 mg tablet 250 mg PO HS 09/20/18 09/06/21 History multivitamin 1 tab PO QAM 09/20/18 09/06/21 History zinc 50 mg tablet 50 mg PO HS 09/20/18 09/06/21 History atorvastatin 20 mg tablet 20 mg PO PM 07/14/19 09/06/21 History baclofen 10 mg tablet 10 mg PO BID PRN 04/23/21 09/06/21 History ropinirole 1 mg tablet 1 mg PO UD 04/23/21 09/06/21 History acetaminophen 500 mg tablet 1,000 mg PO Q8 PRN 09/04/21 09/06/21 History (Tylenol Extra Strength) metoprolol tartrate 50 mg tablet 50 mg PO BID 09/04/21 09/06/21 History trazodone 50 mg tablet 50 mg PO HS 09/06/21 09/06/21 History Patient History Medical History (Updated 09/08/21 @ 10:09 by Kyler Owens DO) Degenerative disc disease Depression Endometriosis Fibromyalgia GERD (gastroesophageal reflux disease) CONTROLLED Hyperlipidemia Hypertension Irritable bowel syndrome Obesity Osteoarthritis Restless leg syndrome Surgical History History of appendectomy History of bunionectomy RT/LEFT History of carpal tunnel release RT/LEFT History of colonoscopy History of dilatation and curettage History of esophagogastroduodenoscopy (EGD) History of left hip replacement 09/28/18: SAB x1 at L4-L5 at [facility] History of tonsillectomy History of tooth extraction History of total abdominal hysterectomy and bilateral salpingo-oophorectomy History of total knee replacement RT Family History Mother Family history of diabetes mellitus Grandfather Family history of diabetes mellitus Family/Other Family history of diabetes mellitus Social History Smoking Status: Former smoker Tobacco Type: Cigarettes Smoking End Date: 1979; Second Hand Exposure: No; Do You Dip or Chew Tobacco: No; Hx Alcohol Use: No Hx Substance Use: No Preferred Language: Irish Communication Ability: Effective Visual Impairment: No Limitations Hearing Ability: Normal 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 All other 10 point review of systems are negative. Physical Exam Physical Exam: General: no acute distress and stated age Head: normocephalic, no masses, lesions, tenderness or abnormalities Eyes: conjunctiva are pink and non-injected, sclera clear Neck: supple, no adenopathy, no bruits, normal jugular venous pulse, no hepatojugular reflux Chest: normal shape and normal respiratory effort Lungs: clear to auscultation and percussion Cardiac Exam: - regular rate & rhythm, no murmurs gallops or rubs - normal S1, normal S2 Pulses: 2(+) throughout Abdomen: abdomen soft, non-tender, no abnormal masses and no hepatosplenomegaly Musculoskeletal: no gait disturbance, no joint inflammation, no deforming arthritis Extremities: no edema and no cyanosis Neuro: grossly normal exam Results & Data ([facility]) Vital Signs (Past 12 Hours) Vital Signs Temp Pulse Resp BP BP Pulse Ox 09/07/21 04:25 36.9 C 63 20 124/70 97 09/06/21 23:46 36.8 C 69 20 141/74 H 93 09/06/21 23:35 36.5 C 69 20 181/71 H 92 Laboratory Results Laboratory Results - last 24 hr 09/06/21 09/06/21 09/06/21 11:30 11:30 13:00 WBC 15.10 H RBC 4.55 Hgb 13.9 Hct 40.5 MCV 89.0 MCH 30.5 MCHC 34.3 RDW Std Deviation 45.7 RDW Coeff of Marcelo 14.0 Plt Count 301 MPV 11.0 H Immature Gran % (Auto) 0.2 Neut % (Auto) 75.7 Lymph % (Auto) 15.9 [place] % (Auto) 7.6 Eos % (Auto) 0.5 Baso % (Auto) 0.1 Neut # (Auto) 11.43 H Lymph # (Auto) 2.40 [place] # (Auto) 1.15 H Eos # (Auto) 0.07 Baso # (Auto) 0.02 Immature Gran # (Auto) 0.03 H Sodium 141 Potassium 3.5 Chloride 111 H Carbon Dioxide 21 Anion Gap 9.0 BUN 16 Creatinine 0.87 Est Cr Clr Drug Dosing 65.9 Est GFR ( Amer) 80.5 Est GFR (Non-Af Amer) 69.4 BUN/Creatinine Ratio 18.3 Glucose 129 H Lactate 2.0 Calcium 9.4 Total Bilirubin 0.5 AST 32 ALT 19 Alkaline Phosphatase 66 Troponin I 0.201 H* Total Protein 7.1 Albumin 3.9 Globulin 3.2 Albumin/Globulin Ratio 1.2 Triglycerides Cholesterol LDL Cholesterol, Calc VLDL Cholesterol, Calc HDL Cholesterol Cholesterol/HDL Ratio Lipase 191 Urine Color Urine Appearance Urine pH Ur Specific [place] Urine Protein Urine Glucose (UA) Urine Ketones Urine Blood Urine Nitrite Urine Bilirubin Urine Urobilinogen Ur Leukocyte Esterase Urine WBC (Auto) Urine RBC (Auto) U Hyaline Cast (Auto) U Epithel Cells (Auto) Urine Bacteria (Auto) Adenovirus (PCR) B. pertussis DNA (PCR) B.parapertussis DNA PCR C. pneumoniae DNA (PCR) Coronavirus OC43 (PCR) Coronavirus HKU1 (PCR) Coronavirus 229E (PCR) COVID-19 Eval Order SARS-CoV-2 (PCR) Coronavirus NL63 (PCR) Human Metapneumovir PCR Influenza Type A (PCR) Influenza Type B (PCR) M. pneumoniae (PCR) Parainfluenza 1 (PCR) Parainfluenza 2 (PCR) Parainfluenza 3 (PCR) Parainfluenza 4 (PCR) RSV (PCR) Entero/Rhino (PCR) 09/06/21 09/06/21 09/06/21 14:19 14:19 20:09 WBC RBC Hgb Hct MCV MCH MCHC RDW Std Deviation RDW Coeff of Marcelo Plt Count MPV Immature Gran % (Auto) Neut % (Auto) Lymph % (Auto) [place] % (Auto) Eos % (Auto) Baso % (Auto) Neut # (Auto) Lymph # (Auto) [place] # (Auto) Eos # (Auto) Baso # (Auto) Immature Gran # (Auto) Sodium Potassium Chloride Carbon Dioxide Anion Gap BUN Creatinine Est Cr Clr Drug Dosing Est GFR ( Amer) Est GFR (Non-Af Amer) BUN/Creatinine Ratio Glucose Lactate Calcium Total Bilirubin AST ALT Alkaline Phosphatase Troponin I 0.454 H* Total Protein Albumin Globulin Albumin/Globulin Ratio Triglycerides Cholesterol LDL Cholesterol, Calc VLDL Cholesterol, Calc HDL Cholesterol Cholesterol/HDL Ratio Lipase Urine Color Urine Appearance Urine pH Ur Specific [place] Urine Protein Urine Glucose (UA) Urine Ketones Urine Blood Urine Nitrite Urine Bilirubin Urine Urobilinogen Ur Leukocyte Esterase Urine WBC (Auto) Urine RBC (Auto) U Hyaline Cast (Auto) U Epithel Cells (Auto) Urine Bacteria (Auto) Adenovirus (PCR) Not Detected B. pertussis DNA (PCR) Not Detected B.parapertussis DNA PCR Not Detected C. pneumoniae DNA (PCR) Not Detected Coronavirus OC43 (PCR) Not Detected Coronavirus HKU1 (PCR) Not Detected Coronavirus 229E (PCR) Not Detected COVID-19 Eval Order RESPNP at [facility] SARS-CoV-2 (PCR) Not Detected Coronavirus NL63 (PCR) Not Detected Human Metapneumovir PCR Not Detected Influenza Type A (PCR) Not Detected Influenza Type B (PCR) Not Detected M. pneumoniae (PCR) Not Detected Parainfluenza 1 (PCR) Not Detected Parainfluenza 2 (PCR) Not Detected Parainfluenza 3 (PCR) Not Detected Parainfluenza 4 (PCR) Not Detected RSV (PCR) Not Detected Entero/Rhino (PCR) Not Detected 09/06/21 09/07/21 09/07/21 21:15 00:58 00:58 WBC 6.61 RBC 3.75 L Hgb 11.3 L Hct 33.4 L MCV 89.1 MCH 30.1 MCHC 33.8 RDW Std Deviation 45.5 RDW Coeff of Marcelo 13.8 Plt Count 203 MPV 9.8 Immature Gran % (Auto) Neut % (Auto) Lymph % (Auto) [place] % (Auto) Eos % (Auto) Baso % (Auto) Neut # (Auto) Lymph # (Auto) [place] # (Auto) Eos # (Auto) Baso # (Auto) Immature Gran # (Auto) Sodium 138 Potassium 3.2 L Chloride 112 H Carbon Dioxide 22 Anion Gap 4.0 BUN 12 Creatinine 0.59 L Est Cr Clr Drug Dosing 93.2 Est GFR ( Amer) 110.7 Est GFR (Non-Af Amer) 95.5 BUN/Creatinine Ratio 20.6 H Glucose 87 Lactate Calcium 8.7 Total Bilirubin 0.5 AST 180 H ALT 102 H Alkaline Phosphatase 197 H D Troponin I 0.315 H* Total Protein 6.0 L Albumin 3.1 L Globulin 2.9 Albumin/Globulin Ratio 1.1 Triglycerides 142 Cholesterol 128 LDL Cholesterol, Calc 49 VLDL Cholesterol, Calc 28 HDL Cholesterol 51 Cholesterol/HDL Ratio 3 Lipase Urine Color Dark Yellow Urine Appearance Clear Urine pH 6.0 Ur Specific [place] > 1.045 H Urine Protein Trace H Urine Glucose (UA) Negative Urine Ketones 1+ H Urine Blood Negative Urine Nitrite Negative Urine Bilirubin Negative Urine Urobilinogen Negative Ur Leukocyte Esterase Negative Urine WBC (Auto) 1-5 Urine RBC (Auto) 0-4 U Hyaline Cast (Auto) 1-5 U Epithel Cells (Auto) >30 H Urine Bacteria (Auto) Negative Adenovirus (PCR) B. pertussis DNA (PCR) B.parapertussis DNA PCR C. pneumoniae DNA (PCR) Coronavirus OC43 (PCR) Coronavirus HKU1 (PCR) Coronavirus 229E (PCR) COVID-19 Eval Order SARS-CoV-2 (PCR) Coronavirus NL63 (PCR) Human Metapneumovir PCR Influenza Type A (PCR) Influenza Type B (PCR) M. pneumoniae (PCR) Parainfluenza 1 (PCR) Parainfluenza 2 (PCR) Parainfluenza 3 (PCR) Parainfluenza 4 (PCR) RSV (PCR) Entero/Rhino (PCR) Medications Administered Current Inpatient Medications Acetaminophen (Acetaminophen 325 Mg Tab) 650 mg PO Q4H PRN PRN Reason: Pain or Fever Stop: 10/06/21 19:44 Atorvastatin Calcium (Atorvastatin 20 Mg Tab) 20 mg PO PM TARUN Stop: 10/06/21 20:59 Last Admin: 09/06/21 21:47 Dose: 20 mg Documented by: Baclofen (Baclofen 10 Mg Tab) 10 mg PO BID PRN PRN Reason: Muscle Spasm Stop: 10/06/21 19:44 Duloxetine HCl (Duloxetine Hcl 60 Mg Cap) 60 mg PO QAM TARUN Stop: 10/07/21 08:59 Last Admin: 09/07/21 08:51 Dose: 60 mg Documented by: Heparin Sodium (Porcine) (Heparin Sod 5,000 Unit/0.5 Ml Vial) 5,000 units SQ Q12 TARUN Stop: 10/06/21 20:59 Last Admin: 09/07/21 08:52 Dose: Not Given Documented by: Hydromorphone HCl (Hydromorphone Inj 0.5 Mg/0.5 Ml Syr) 0.5 mg IV Q6H PRN PRN Reason: Severe Pain Stop: 09/20/21 19:44 Last Admin: 09/06/21 21:48 Dose: 0.5 mg Documented by: Promethazine HCl 12.5 mg/ (Sodium Chloride) 50.5 mls @ 202 mls/hr IV Q6H PRN PRN Reason: Nausea And Vomiting Stop: 10/06/21 19:44 Sodium Chloride (Nss 1000ml) 1,000 mls @ 100 mls/hr IV .Q10H TARUN Stop: 09/07/21 15:44 Last Admin: 09/07/21 08:05 Dose: 100 mls/hr Documented by: Famotidine 20 mg/ Syringe 5 mls @ 2.5 mls/min IV BID TARUN Stop: 10/06/21 20:59 Last Admin: 09/07/21 08:51 Dose: 2.5 mls/min Documented by: Losartan Potassium (Losartan Potassium 50 Mg Tab) 100 mg PO DAILY TARUN Stop: 10/07/21 11:59 Last Admin: 09/07/21 10:36 Dose: 100 mg Documented by: Magnesium Oxide (Magnesium Oxide 400 Mg Tab) 400 mg PO HS TARUN Stop: 10/06/21 20:59 Last Admin: 09/06/21 21:47 Dose: 400 mg Documented by: Metoprolol Tartrate (Metoprolol Tartrate 50 Mg Tab) 50 mg PO BID TARUN Stop: 10/06/21 20:59 Last Admin: 09/07/21 08:48 Dose: 50 mg Documented by: Polyethylene Glycol (Polyethylene (Miralax) 17 Gm Pack) 17 gm PO DAILY PRN PRN Reason: Constipation Stop: 10/06/21 19:44 Potassium Chloride (Potassium Chloride Crtab 20 Meq Tabcr) 40 meq PO BID [facility] Stop: 10/07/21 08:59 Last Admin: 09/07/21 08:56 Dose: Not Given Documented by: Ropinirole HCl (Ropinirole Hcl 1 Mg Tablet) 1 mg PO BID@1630,2100 [facility] Stop: 10/06/21 20:59 Last Admin: 09/06/21 21:47 Dose: 1 mg Documented by: Trazodone HCl (Trazodone Hcl 50 Mg Tab) 50 mg PO HS [facility] Stop: 10/06/21 20:59 Last Admin: 09/06/21 21:47 Dose: 50 mg Documented by: (1) Abdominal pain Abdominal location: left lower quadrant Qualified Code(s): R10.32 - Left lowe r quadrant pain (2) Vomiting Nausea presence: with nausea Vomiting Intractability: non-intractable Vomiting type: unspecified Qualified Code(s): R11.2 - Nausea with vomiting, unspecified
--- NOTE | 2021-09-07 11:39 | Gastrointestinal Consultation ---
Date of Consultation September 07, 2021 Assessment & Plan (1) Dehydration: (2) Abdominal pain: (3) Vomiting: (4) Elevated liver enzymes: Symptoms have totally resolved Advance diet as tolerated Check CMP in 2-3 days History of Present Illness Reason for Consultation: Elevated Liver panel Attending Physician: Rigoberto Wu MD History of Present Illness Ashley Mi is a 65 yo CF who presented to the ER initially on 09/04/2021 with complaints of nausea vomiting and diarrhea. She was treated conservatively, and diagnosed with a possible gastroenteritis and was discharged. She subsequently returned to the ER on 09/06/2021, with similar complaints of nausea, vomiting, and diarrhea. She also complained of abdominal pain, and was noted to have slightly a slightly elevated liver panel, and slight elevations in her Troponin. She underwent a CT abd/pelvis, as well as a CT angio of the abdomen, which were unremarkable. She was subsequently admitted, and was seen by cardiology and underwent a Echo and was not felt to have any acute cardiology issues. At the time I saw her, she had complete symptom resolution. She denies any abdominal pain, fevers, chills, nausea, vomiting, hematemesis, melena or hematochezia. She states that she has not been around any sick contacts, and denies any new medications. She states that she has no further complaints. 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) Home Medications Medication Instructions Recorded Confirmed Type ascorbic acid (vitamin C) 500 mg 500 mg PO BID 09/20/18 09/06/21 History tablet (Vitamin C) calcium carbonate-vitamin D3 600 1 cap PO PM 09/20/18 09/06/21 History mg calcium-200 unit capsule (Calcium 600 + D(3)) duloxetine 60 mg capsule,delayed 60 mg PO QAM 09/20/18 09/06/21 History release ferrous sulfate 325 mg (65 mg 325 mg PO QAM 09/20/18 09/06/21 History iron) tablet (iron) losartan 100 mg tablet 100 mg PO PM 09/20/18 09/06/21 History magnesium 250 mg tablet 250 mg PO HS 09/20/18 09/06/21 History multivitamin 1 tab PO QAM 09/20/18 09/06/21 History zinc 50 mg tablet 50 mg PO HS 09/20/18 09/06/21 History atorvastatin 20 mg tablet 20 mg PO PM 07/14/19 09/06/21 History baclofen 10 mg tablet 10 mg PO BID PRN 04/23/21 09/06/21 History ropinirole 1 mg tablet 1 mg PO UD 04/23/21 09/06/21 History acetaminophen 500 mg tablet 1,000 mg PO Q8 PRN 09/04/21 09/06/21 History (Tylenol Extra Strength) metoprolol tartrate 50 mg tablet 50 mg PO BID 09/04/21 09/06/21 History trazodone 50 mg tablet 50 mg PO HS 09/06/21 09/06/21 History Patient History Medical History Degenerative disc disease Depression Endometriosis Fibromyalgia GERD (gastroesophageal reflux disease) CONTROLLED Hyperlipidemia Hypertension Irritable bowel syndrome Obesity Osteoarthritis Restless leg syndrome Surgical History History of appendectomy History of bunionectomy RT/LEFT History of carpal tunnel release RT/LEFT History of colonoscopy History of dilatation and curettage History of esophagogastroduodenoscopy (EGD) History of left hip replacement 09/28/18: SAB x1 at L4-L5 at [facility] History of tonsillectomy History of tooth extraction History of total abdominal hysterectomy and bilateral salpingo-oophorectomy History of total knee replacement RT Family History Mother Family history of diabetes mellitus Grandfather Family history of diabetes mellitus Family/Other Family history of diabetes mellitus Social History Smoking Status: Former smoker Tobacco Type: Cigarettes Smoking End Date: 1979; Second Hand Exposure: No; Do You Dip or Chew Tobacco: No; Hx Alcohol Use: No Hx Substance Use: No Preferred Language: Latvian Communication Ability: Effective Visual Impairment: No Limitations Hearing Ability: Normal 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 Beliefs That Will Affect Care: None marital status: Current Living Situation: Spouse Current Living Situation Comment: With christ mi Other Information That Helps Us Care for You: No Feels Safe at Home: Yes Safety Concerns: Feels Safe At This Time Assistive Devices: None Review of Systems Constitutional: as per Subjective / HPI Eyes: as per Subjective / HPI Ear, Nose, Mouth, Throat: as per Subjective / HPI Respiratory: as per Subjective / HPI Cardiovascular: as per Subjective / HPI Gastrointestinal: as per Subjective / HPI Musculoskeletal: as per Subjective / HPI Integumentary: as per Subjective / HPI Neurologic: as per Subjective / HPI Psychiatric: as per Subjective / HPI Endocrine: as per Subjective / HPI Hematologic / Lymphatic: as per Subjective / HPI Allergy / Immunological: as per Subjective / HPI Physical Exam Constitutional: WD/WN, vitals as above Eyes: + anicteric sclerae ENMT: external ear and nose normal, oropharynx normal Neck: normal visual inspection Respiratory: normal respiratory effort, lungs clear to auscultation Cardiovascular: RRR, no murmur, no edema Gastrointestinal (Abdomen): normal bowel sounds, soft, nontender, no hepatosplenomegaly Skin: no rashes, warm and dry Psychiatric: A+Ox3, euthymic affect Results & Data ([facility]) Vital Signs (Past 12 Hours) Vital Signs Temp Pulse Resp BP BP Pulse Ox 09/07/21 11:35 37.1 C 67 18 174/80 H 96 09/07/21 04:25 36.9 C 63 20 124/70 97 09/06/21 23:46 36.8 C 69 20 141/74 H 93 PG Care Time/CCT Total # of Minutes Spent Total Time Spent with Patient: Total time spent is greater than 50% in coordination of care (as documented) at patient's floor/unit and/or counseling patient: Coding Level of Care Code 38434 Office/OBS Consult Lvl 3 Diagnoses Dehydration E86.0 Abdominal pain R10.32 Abdominal location: left lower quadrant Vomiting R11.2 Nausea presence: with nausea Vomiting Intractability: non-intractable Vomiting type: unspecified Elevated liver enzymes R74.8 (1) Abdominal pain Abdominal location: left lower quadrant Qualified Code(s): R10.32 - Left lower quadrant pain (2) Vomiting Nausea presence: with nausea Vomiting Intractability: non-intractable Vomiting type: unspecified Qualified Code(s): R11.2 - Nausea with vomiting, unspecified
[2021-09-07 15:48] LABS: Cdiff Antigen Positive
[2021-09-07 15:49] LABS: Cdiff Toxin A+B Negative Cdiff Toxin (Negative)
[2021-09-07] MEDS ORDERED: amLODIPine BESYLATE 5 MG TAB PO ONE (17:07)
--- NOTE | 2021-09-07 17:07 | Hospitalist Progress Note ---
Date of Service September 07, 2021 Assessment & Plan (1) Abdominal pain: Plan: Per TATI Suarez notes: Patient is 65-year-old female with PMH HTN, HLD, GERD, depression, fibromyalgia, IBS presented to ER with complaint of abdominal pain, vomiting, diarrhea today after eating Today in ER afebrile, P: 62, BP 209/137, 96% on room air. WBC: 15, lactate: 2.0, lipase: 191, liver functions WNL. Troponin: 0.2. CTA abdomen pelvis unremarkable. In ER given Dilaudid, Zofran, 500 mL NSS. Patient without any further abdominal pain, vomiting or diarrhea. Denies any chest pain. IVF Dilaudid prn pain NPO at this time Pepcid IV BID, since PPI in low supply CBC, CMP in am Obtains c-diff, stool studies if recurrent diarrhea Abdominal pain, possible gastritis versus peptic ulcer disease, colitis stone/sludge passage? Abdominal pain has resolved this morning Curiously, LFTs increased Discussed with GI, for now, advance diet, repeat LFTs tomorrow If stable, discharge to home tomorrow and follow-up with GI as an outpatient Acute coronary syndrome ruled out Patient presented with multiple elevation of 0.2, increased 0.4, then went down to 0.3 Has nonspecific T wave inversions in inferior lead Echocardiogram No chest pain today Assistant Professor Of Biology consulted, awaiting echocardiogram results, if negative, no further cardiac intervention (2) Elevated troponin: Plan: Troponin: 0.2. EKG sinus rhythm, T wave inversion in septal leads. R/O ACS. Risk factors: HTN, hyperlipidemia. DDX demand ischemia Management per above (3) Hypertension: Plan: Really quite hypertensive in ER, patient was in significant abdominal pain. Since pain medication abdominal pain has resolved and BP is 100/47 BP increased again to systolic 170s this afternoon Add amlodipine 5 mg daily Continue losartan, metoprolol tartrate Monitor (4) Hyperlipidemia: Plan: Continue atorvastatin (5) Fibromyalgia: Plan: Continue duloxetine (6) Restless leg syndrome: Plan: Continue ropinirole DVT Prophylaxis -Heparin SQ Full Code as per discussion with pt Follows with Girish Mancilla PA-C for routine care plan of care discussed with patient in detail and at length all questions answered she is understanding, agreeable, comfortable with the plan of care Admission and Anticipated Discharge Date Admission Date: September 06, 2021 Subjective Follow-up for abdominal pain, elevated troponin, etc. Seen sitting up in bed, comfortable, in good spirits States she feels much better overall Abdominal pain has resolved this morning No nausea vomiting, fever or chills Denies chest pain, shortness of breath, palpitations, dizziness No other symptoms Review of Systems Review of Systems: all noted and negative except for above Physical Exam Physical Exam: General- oriented x 3, not in distress, speaks in sentences with no effort or accessory muscle use Eyes- anicteric Neck- no JVD Lungs- clear breath sounds bilaterally, no rales/wheezes Heart- normal rate, regular rhythm; no murmurs Abdomen- normal bowel sounds, nondistended, soft, nontender Extremities- no pretibial edema, no calf tenderness Neuro- alert, oriented x 3; no gross focal neurologic deficits Skin- warm & dry Results & Data Results & Data ([facility]) Vital Signs (Past 12 Hours) Vital Signs Temp Pulse Resp BP Pulse Ox 09/07/21 16:16 37.0 C 62 18 175/84 H 96 09/07/21 11:35 37.1 C 67 18 174/80 H 96 all noted and reviewed including below (1) Abdominal pain Abdominal location: left lower quadrant Qualified Code(s): R10.32 - Left lower quadrant pain (2) Hypertension Hypertension type: unspecified Qualified Code(s): I10 - Essential (primary) hypertension
[2021-09-07] MEDS: rOPINIRole HCL 1 MG TABLET PO SCH ×2 (17:16→21:39)
[2021-09-07] MEDS: MAGNESIUM OXIDE 400 MG TAB PO SCH (21:40)
[2021-09-07] MEDS: traZODone HCL 50 MG TAB PO SCH (21:40)
[2021-09-07] MEDS: ATORVASTATIN 20 MG TAB PO SCH (21:40)
[2021-09-08 07:37] LABS: Basophils # (auto) 0.04 K/uL (0-0.2); Basophils % (auto) 0.6 %; Eosinophils # (auto) 0.11 K/uL (0-0.5); Eosinophils % (auto) 1.6 %; Hematocrit (blood only) 37.1 % (37-47); Hemoglobin 12.8 g/dL (12.0-16.0); Immature Granulocytes # (auto) 0.01 K/uL (0.00-0.02); Immature Granulocytes % (auto) 0.1 %; Lymphocytes # (auto) 2.55 K/uL (1.2-3.4); Lymphocytes % (auto) 36.8 %; Mean Corpuscular Hemoglobin 30.6 pg (25-34); Mean Corpuscular Hgb Conc 34.5 g/dL (32-36); Mean Corpuscular Volume 88.8 fL (80-100); Mean Platelet Volume 10.5 fL (7.4-10.4); Monocytes # (auto) 0.74 K/uL (0.11-0.59); Monocytes % (auto) 10.7 %; Neutrophils # (auto) 3.47 K/uL (1.4-6.5); Neutrophils % (auto) 50.2 %; Platelet Count 267 K/uL (130-400); RDW Coefficient of Variation 13.7 % (11.5-14.5); RDW Standard Deviation 44.3 fL (36.4-46.3); Red Blood Count 4.18 M/uL (4.2-5.4); White Blood Count 6.92 K/uL (4.8-10.8)
[2021-09-08 07:56] LABS: Alanine Aminotransferase 67 U/L (12-78); Albumin Level 3.7 gm/dl (3.4-5.0); Aspartate Aminotransferase 47 U/L (15-37); BUN Creatinine Ratio 9.8 (10-20); Bilirubin Direct < 0.1 mg/dl (0-0.2); Blood Urea Nitrogen 8 mg/dl (7-18); Calcium 9.4 mg/dl (8.5-10.1); Carbon Dioxide 26 mmol/L (21-32); Chloride 108 mmol/L (98-107); Creatinine Clr Calc Pharmacy 70.1 ml/min; Est GFR (African American) 90.4 ml/min; Glucose 98 mg/dl (70-99); Potassium 3.1 mmol/L (3.5-5.1); Sodium 139 mmol/L (136-145)
[2021-09-08 07:59] LABS: Alkaline Phosphatase 176 U/L (45-117); Bilirubin,Total 0.6 mg/dl (0.2-1); Total Protein 7.2 gm/dl (6.4-8.2)
[2021-09-08] MEDS: amLODIPine BESYLATE 5 MG TAB PO SCH (09:08)
[2021-09-08] MEDS: POTASSIUM CHLORIDE CRTAB 20 MEQ TABCR PO SCH ×2 (09:08→20:37)
[2021-09-08] MEDS: LOSARTAN POTASSIUM 50 MG TAB PO SCH (09:09)
[2021-09-08] MEDS: DULoxetine HCL 60 MG CAP PO SCH (09:09)
[2021-09-08] MEDS: METOPROLOL TARTRATE 50 MG TAB PO SCH ×2 (09:09→20:38)
[2021-09-08] MEDS: HEPARIN SOD 5,000 UNIT/0.5 ML VIAL SQ SCH ×2 (09:10→20:37)
--- NOTE | 2021-09-08 09:59 | Gastroenterology Progress Note ---
Date of Service September 08, 2021 Assessment & Plan (1) Elevated liver enzymes: (2) Abdominal pain: Plan: Liver panel improved today Patient doing well and tolerating PO intake Recommend outpatient followup to ensure Liver panel returns to normal as would be expected Admission and Anticipated Discharge Date Admission Date: September 06, 2021 Subjective Feeling better today. Eating breakfast and tolerating well. Denies any further abdominal pain, fevers, chills, nausea, vomiting or diarrhea overnight. No further complaints. Review of Systems Constitutional: as per Subjective / HPI Eyes: as per Subjective / HPI Ear, Nose, Mouth, Throat: as per Subjective / HPI Respiratory: as per Subjective / HPI Cardiovascular: as per Subjective / HPI Gastrointestinal: as per Subjective / HPI Musculoskeletal: as per Subjective / HPI Integumentary: as per Subjective / HPI Neurologic: as per Subjective / HPI Psychiatric: as per Subjective / HPI Endocrine: as per Subjective / HPI Hematologic / Lymphatic: as per Subjective / HPI Allergy / Immunological: as per Subjective / HPI Physical Exam Constitutional: WD/WN, vitals as above Respiratory: normal respiratory effort, lungs clear to auscultation Cardiovascular: RRR, no murmur, no edema Gastrointestinal (Abdomen): normal bowel sounds, soft, nontender, no hepatosplenomegaly Skin: no rashes, warm and dry Psychiatric: A+Ox3, euthymic affect Results & Data Results & Data ([facility]) Vital Signs (Past 12 Hours) Vital Signs Temp Pulse Pulse Resp BP BP Pulse Ox 09/08/21 02:56 36.8 C 61 18 157/92 H 96 09/08/21 00:58 66 09/07/21 23:55 36.5 C 67 18 151/79 H 95 PG Care Time/CCT Total # of Minutes Spent Total Time Spent with Patient: Total time spent is greater than 50% in coordination of care (as documented) at patient's floor/unit and/or counseling patient: Coding Level of Care Code 78360 Subseq Hosp Care Lvl 3 Diagnoses Elevated liver enzymes R74.8 Abdominal pain R10.32 Abdominal location: left lower quadrant (1) Abdominal pain Abdominal location: left lower quadrant Qualified Code(s): R10.32 - Left lower quadrant pain
--- NOTE | 2021-09-08 10:08 | Electrocardiogram Report ---
Test Reason : Blood Pressure : / mmHG Vent. Rate : 058 BPM Atrial Rate : 058 BPM P-R Int : 152 ms QRS Dur : 080 ms QT Int : 472 ms P-R-T Axes : 062 024 015 degrees QTc Int : 463 ms Sinus bradycardia Otherwise normal ECG When compared with ECG of 06-SEP-2021 13:58, QT has shortened Confirmed by Andrea Turner ([id number]) on 09/08/2021 10:08:16 AM Referred By: REFERRED SELF Confirmed By:Andrea Turner
[2021-09-08] MEDS: FAMOTIDINE 20 MG in SYRINGE 3 ML IV SCH ×2 (11:07→20:37)
--- NOTE | 2021-09-08 13:30 | Hospitalist Progress Note ---
Date of Service September 08, 2021 Assessment & Plan (1) Abdominal pain: Plan: (1) Abdominal pain: Plan: Per TATI Suarez notes: Patient is 65-year-old female with PMH HTN, HLD, GERD, depression, fibromyalgia, IBS presented to ER with complaint of abdominal pain, vomiting, diarrhea today after eating Today in ER afebrile, P: 62, BP 209/137, 96% on room air. WBC: 15, lactate: 2.0, lipase: 191, liver functions WNL. Troponin: 0.2. CTA abdomen pelvis unremarkable. In ER given Dilaudid, Zofran, 500 mL NSS. Patient without any further abdominal pain, vomiting or diarrhea. Denies any chest pain. Abdominal pain, possible gastritis versus peptic ulcer disease, colitis stone/sludge passage? Abdominal pain has resolved Curiously, LFTs increased, but now trending down again Order MRCP to rule out choledocholithiasis If negative, outpatient follow-up with GI Appreciate service recommendations Acute coronary syndrome ruled out Patient presented with multiple elevation of 0.2, increased 0.4, then went down to 0.3 Has nonspecific T wave inversions in inferior lead Echocardiogram done EF 60 to 65%, left ventricular wall motion is normal, right ventricular systolic function is normal, mild to moderate mitral regurgitation No chest pain since admission Public Policy Analyst consulted, no further cardiac intervention at this point (2) mildly elevated elevated troponin: Plan: Troponin: 0.2. EKG sinus rhythm, T wave inversion in septal leads. Management as above Likely secondary demand ischemia from hypotension, stress, etc. Troponin trended down (3) Hypertension: Plan: Really quite hypertensive in ER, patient was in significant abdominal pain. Since pain medication abdominal pain has resolved and BP is 100/47 BP increased again to systolic 170s this afternoon Add amlodipine 5 mg daily Continue losartan, metoprolol tartrate BP seems to be improving Continue to monitor (4) Hyperlipidemia: Plan: Continue atorvastatin (5) Fibromyalgia: Plan: Continue duloxetine (6) Restless leg syndrome: Plan: Continue ropinirole DVT Prophylaxis -Heparin SQ Full Code as per discussion with pt Follows with Girish Mancilla PA-C for routine care plan of care discussed with patient and her at the bedside in detail and at length all questions answered They are understanding, agreeable, comfortable with the plan of care (2) Elevated troponin: Plan: Troponin: 0.2. EKG sinus rhythm, T wave inversion in septal leads. R/O ACS. Risk factors: HTN, hyperlipidemia. DDX demand ischemia Repeat EKG in am Will trend troponin Echo Lipid panel in am, continue statin Repeat EKG for CP Consider cardiology consult if troponins elevate (3) Hypertension: Plan: Really quite hypertensive in ER, patient was in significant abdominal pain. Since pain medication abdominal pain has resolved and BP is 100/47 Continue losartan, metoprolol tartrate (4) Hyperlipidemia: Plan: Continue atorvastatin (5) Fibromyalgia: Plan: Continue duloxetine (6) Restless leg syndrome: Plan: Continue ropinirole DVT Prophylaxis -Heparin SQ Full Code as per discussion with pt Follows with Girish Mancilla PA-C for routine care Pt was seen and care coordinated with Dr Wu. See addendum Admission and Anticipated Discharge Date Admission Date: September 06, 2021 Subjective Follow-up abdominal pain, etc. seen sitting up in bed, comfortable in good spirits states abdominal pain is very mild now , intermittent no nausea/vomiting tolerating soft diet well denies chest pain, dyspnea, palpitations, dizziness no other symptoms Review of Systems Review of Systems: all noted and negative except for above Physical Exam Physical Exam: General- oriented x 3, not in distress, speaks in sentences with no effort or accessory muscle use Eyes- anicteric Neck- no JVD Lungs- clear breath sounds bilaterally, no rales/wheezes Heart- normal rate, regular rhythm; no murmurs Abdomen- normal bowel sounds, nondistended, soft, nontender Extremities- no pretibial edema, no calf tenderness Neuro- alert, oriented x 3; no gross focal neurologic deficits Skin- warm & dry Results & Data Results & Data ([facility]) Vital Signs (Past 12 Hours) Vital Signs Temp Pulse Pulse Resp BP BP Pulse Ox 09/08/21 11:00 36.4 C L 60 14 163/90 H 96 09/08/21 07:00 61 09/08/21 02:56 36.8 C 61 18 157/92 H 96 all noted and reviewed including below (1) Abdominal pain Abdominal location: left lower quadrant Qualified Code(s): R10.32 - Left lower quadrant pain (2) Hypertension Hypertension type: unspecified Qualified Code(s): I10 - Essential (primary) hypertension
[2021-09-08] MEDS ORDERED: LORazepam 0.5 MG TAB PO ONE (16:13)
--- NOTE | 2021-09-08 17:41 | Magnetic Resonance Report ---
MRCP CLINICAL HISTORY: Right upper quadrant pain and elevated liver enzymes; evaluate for choledocholithia sis TECHNIQUE: Utilizing a 1.5 Delaney magnet and dedicated coil, multiplanar, multiecho imaging of the upp er abdomen was performed utilizing heavily T2 weighted pulsing sequences without IV contrast. COMPARISON STUDY: CTA of the abdomen and pelvis September 06, 2021. FINDINGS: The caliber of the common bile duct is within normal limits following cholecystectomy, lavern uring 7 mm. No common bile duct calculi are identified. There is no intrahepatic biliary ductal dilat ation. Course and caliber of the main pancreatic duct is normal. Evaluation of the remainder of the a bdomen is suboptimal on this unenhanced exam however the liver, spleen, adrenal glands, kidneys and p ancreas are unremarkable. There is no peripancreatic fluid. There is no hydronephrosis. No abdominal lymphadenopathy or ascites is present. No suspicious marrow replacement is identified within visualiz ed skeletal structures. IMPRESSION: Unremarkable MRCP status post cholecystectomy. No common bile duct calculi identified. ACT 112: Negative or not required by law. Electronically signed by: Crescencio Garcia M.D. 09/08/2021 5:40 PM
[2021-09-08] MEDS: rOPINIRole HCL 1 MG TABLET PO SCH ×2 (17:43→20:38)
[2021-09-08] MEDS ORDERED: amLODIPine BESYLATE 5 MG TAB PO ONE (17:45)
[2021-09-08] MEDS ORDERED: hydrALAZINE HCL 20 MG/ML VIAL IV PRN (19:06)
[2021-09-08] MEDS: ATORVASTATIN 20 MG TAB PO SCH (20:37)
[2021-09-08] MEDS: MAGNESIUM OXIDE 400 MG TAB PO SCH (20:38)
[2021-09-08] MEDS: traZODone HCL 50 MG TAB PO SCH (20:38)
[2021-09-09 07:44] LABS: Hematocrit (blood only) 40.1 % (37-47); Hemoglobin 13.8 g/dL (12.0-16.0); Mean Corpuscular Hemoglobin 30.4 pg (25-34); Mean Corpuscular Hgb Conc 34.4 g/dL (32-36); Mean Corpuscular Volume 88.3 fL (80-100); Mean Platelet Volume 10.1 fL (7.4-10.4); Platelet Count 270 K/uL (130-400); RDW Coefficient of Variation 13.7 % (11.5-14.5); RDW Standard Deviation 44.7 fL (36.4-46.3); Red Blood Count 4.54 M/uL (4.2-5.4); White Blood Count 7.22 K/uL (4.8-10.8)
[2021-09-09 08:18] LABS: Basophils # (auto) 0.07 K/uL (0-0.2); Eosinophils # (auto) 0.17 K/uL (0-0.5); Eosinophils % (auto) 2.4 %; Immature Granulocytes # (auto) 0.02 K/uL (0.00-0.02); Immature Granulocytes % (auto) 0.3 %; Lymphocytes # (auto) 1.85 K/uL (1.2-3.4); Lymphocytes % (auto) 25.6 %; Monocytes # (auto) 0.77 K/uL (0.11-0.59); Monocytes % (auto) 10.7 %; Neutrophils # (auto) 4.34 K/uL (1.4-6.5); RBC Morphology Unremarkable
[2021-09-09 08:23] LABS: BUN Creatinine Ratio 12.6 (10-20); Calcium 9.7 mg/dl (8.5-10.1); Creatinine Clr Calc Pharmacy 65.9 ml/min; Est GFR (African American) 85.2 ml/min; Est GFR (Non-African American) 73.5 ml/min; Potassium 4.4 mmol/L (3.5-5.1)
[2021-09-09] MEDS: amLODIPine BESYLATE 5 MG TAB PO SCH (08:41)
[2021-09-09] MEDS: LOSARTAN POTASSIUM 50 MG TAB PO SCH (08:41)
[2021-09-09] MEDS: HEPARIN SOD 5,000 UNIT/0.5 ML VIAL SQ SCH (08:41)
[2021-09-09] MEDS: POTASSIUM CHLORIDE CRTAB 20 MEQ TABCR PO SCH (08:41)
[2021-09-09] MEDS: DULoxetine HCL 60 MG CAP PO SCH (08:41)
[2021-09-09] MEDS: METOPROLOL TARTRATE 50 MG TAB PO SCH (08:41)
[2021-09-09] MEDS: FAMOTIDINE 20 MG in SYRINGE 3 ML IV SCH (09:19)
--- NOTE | 2021-09-23 16:33 | Hospitalist Progress Note ---
Date of Service September 23, 2021 delayed entry date of service noted above Assessment & Plan (1) Abdominal pain: Plan: Abdominal pain: Plan: Per TATI Suarez notes: Patient is 65-year-old female with PMH HTN, HLD, GERD, depression, fibromyalgia, IBS presented to ER with complaint of abdominal pain, vomiting, diarrhea today after eating Today in ER afebrile, P: 62, BP 209/137, 96% on room air. WBC: 15, lactate: 2.0, lipase: 191, liver functions WNL. Troponin: 0.2. CTA abdomen pelvis unremarkable. In ER given Dilaudid, Zofran, 500 mL NSS. Patient without any further abdominal pain, vomiting or diarrhea. Denies any chest pain. Abdominal pain, possible gastritis versus peptic ulcer disease, colitis stone/sludge passage? Abdominal pain has resolved Curiously, LFTs increased, but now trending down again MRCP negative outpatient follow-up with GI Acute coronary syndrome ruled out Patient presented with multiple elevation of 0.2, increased 0.4, then went down to 0.3 Has nonspecific T wave inversions in inferior lead Echocardiogram done EF 60 to 65%, left ventricular wall motion is normal, right ventricular systolic function is normal, mild to moderate mitral regurgitation No chest pain since admission Specialist Wound Care consulted, no further cardiac intervention at this point (2) mildly elevated elevated troponin: Plan: Troponin: 0.2. EKG sinus rhythm, T wave inversion in septal leads. Management as above Likely secondary demand ischemia from hypotension, stress, etc. Troponin trended down (3) Hypertension: Plan: Really quite hypertensive in ER, patient was in significant abdominal pain. Since pain medication abdominal pain has resolved and BP is 100/47 BP increased again to systolic 170s this afternoon Added amlodipine 5 mg daily Continue losartan, metoprolol tartrate BP seems to be improving outpatient monitoring (4) Hyperlipidemia: Plan: Continue atorvastatin (5) Fibromyalgia: Plan: Continue duloxetine (6) Restless leg syndrome: Plan: Continue ropinirole DVT Prophylaxis -Heparin SQ given Full Code as per discussion with pt Follows with Girish Mancilla PA-C for routine care plan of care discussed with patient and her at the bedside in detail and at length all questions answered They are understanding, agreeable, comfortable with the plan of care (2) Elevated troponin: Plan: Troponin: 0.2. EKG sinus rhythm, T wave inversion in septal leads. R/O ACS. Risk factors: HTN, hyperlipidemia. DDX demand ischemia Repeat EKG in am Will trend troponin Echo Lipid panel in am, continue statin Repeat EKG for CP Consider cardiology consult if troponins elevate (3) Hypertension: Plan: Really quite hypertensive in ER, patient was in significant abdominal pain. Since pain medication abdominal pain has resolved and BP is 100/47 Continue losartan, metoprolol tartrate (4) Hyperlipidemia: Plan: Continue atorvastatin (5) Fibromyalgia: Plan: Continue duloxetine (6) Restless leg syndrome: Plan: Continue ropinirole DVT Prophylaxis -Heparin SQ Full Code as per discussion with pt Follows with Girish Mancilla PA-C for routine care Pt was seen and care coordinated with Dr Wu. See addendum Admission and Anticipated Discharge Date Admission Date: September 06, 2021 Subjective ff up for abdominal pain, hypertension, etc seen resting in bed, comfortable sitting up states she feels much better overall no abdominal pain, nausea no chest pain, dyspnea, palpitations, dizziness no other symptoms states she is ready and would like to be discharged today Review of Systems Review of Systems: all noted and negative except for above Physical Exam Physical Exam: General- oriented x 3, not in distress, speaks in sentences with no effort or accessory muscle use Eyes- anicteric Neck- no JVD Lungs- clear breath sounds bilaterally, no rales/wheezes Heart- normal rate, regular rhythm; no murmurs Abdomen- normal bowel sounds, nondistended, soft, nontender Extremities- no pretibial edema, no calf tenderness Neuro- alert, oriented x 3; no gross focal neurologic deficits Skin- warm & dry Results & Data Results & Data ([facility]) Vital Signs (Past 12 Hours) all noted and reviewed including below (1) Abdominal pain Abdominal location: left lower quadrant Qualified Code(s): R10.32 - Left lower quadrant pain (2) Hypertension Hypertension type: unspecified Qualified Code(s): I10 - Essential (primary) hypertension
--- NOTE | 2021-09-23 16:39 | Discharge Summary ---
Date of Service September 23, 2021 Admission HPI Per Admitting Provider General: no distress, WDWN Head: normocephalic, atraumatic Eyes: PERRL, EOM's intact, conjunctiva non-injected, anicteric ENT: normal inspection external ears, nose, mucous membranes moist Neck: supple, trachea midline Lungs: clear, no respiratory distress, no wheezing/rhonchi/rales CV: RRR, no murmur, no pretibial edema Abd: normal BS, soft, non-tender to palpation at this time Ext: no cyanosis, no calf tenderness Neuro: A&O x 3, no focal deficits noted, normal affect Skin: warm, dry Admission Exam (Per Admitting) Constitutional General: no distress, WDWN Head: normocephalic, atraumatic Eyes: PERRL, EOM's intact, conjunctiva non-injected, anicteric ENT: normal inspection external ears, nose, mucous membranes moist Neck: supple, trachea midline Lungs: clear, no respiratory distress, no wheezing/rhonchi/rales CV: RRR, no murmur, no pretibial edema Abd: normal BS, soft, non-tender to palpation at this time Ext: no cyanosis, no calf tenderness Neuro: A&O x 3, no focal deficits noted, normal affect Skin: warm, dry Discharge Data Consultations 09/06/21 14:36 ED Decision to Admit Stat 09/07/21 07:43 Consult Cardiology Routine 09/07/21 08:44 Consult Gastroenterology Routine Procedures Performed CT ANGIOGRAM OF THE ABDOMEN AND PELVIS CLINICAL HISTORY: Postprandial abdominal pain. COMPARISON STUDY: Abdominal CT dated 09/04/2021. TECHNIQUE: Following the IV administration of 119 cc of Optiray 320, CT angiogram of the abdomen and pelvis was performed from the lung bases the proximal femora. Images are reviewed in the axial, sagittal, and coronal planes. 3-D MIPS images are created and assessed. IV contrast was administered without complication. A dose lowering technique was utilized adhering to the principles of ALARA. CT DOSE: 532.05 mGy.cm FINDINGS: Lower chest: The heart is normal in size and without pericardial effusion. The lung bases are clear noting mild bibasilar scarring/atelectasis. Liver: The contrast-enhanced liver is top normal in size measuring 17.7 cm in length. The liver is normal in contour and attenuation. There is no intrahepatic biliary ductal dilatation. Gallbladder: Surgically absent noting clips in the gallbladder fossa. Spleen: Normal in size and attenuation noting heterogeneous arterial phase enhancement. Pancreas: Unremarkable. Adrenal glands: Unremarkable. Kidneys: The contrast enhanced kidneys are normal in size and without hydronephrosis. The kidneys enhance symmetrically. Abdominal aorta and iliac arteries: The abdominal aorta is normal in course and caliber noting moderate atherosclerotic calcification. There is less than 50% stenosis of the right common iliac artery. The abdominal aorta and iliac arteries are otherwise widely patent. No dissection is seen. Major branches of the abdominal aorta: The celiac trunk, superior mesenteric, and inferior mesenteric arteries are widely patent. Hepatic arterial anatomy is conventional. The splenic artery is widely patent. Single bilateral renal arteries are widely patent. Bowel: There is no bowel obstruction. The cecum is located in the pelvis. The appendix is not identified and reported surgically absent. Peritoneum: There is no intraperitoneal free air or abdominal ascites. There is a small fat-containing umbilical hernia. Lymphadenopathy: None. Pelvic viscera: Evaluation of the pelvis is degraded by streak artifact from a left hip arthroplasty. The bladder is normal as visualized. The uterus is surgically absent. No adnexal lesion is seen. Skeletal structures: The skeletal structures are osteopenic. There is moderate lumbosacral spondylosis. No destructive bony lesions are seen. A left hip arthroplasty is in place. IMPRESSION: 1. Unremarkable CT angiogram of the abdominal aorta and its major branches. 2. No acute infectious or inflammatory findings are identified in the abdomen or pelvis. ACT 112: Negative or not required by law. MRCP CLINICAL HISTORY: Right upper quadrant pain and elevated liver enzymes; evaluate for choledocholithiasis TECHNIQUE: Utilizing a 1.5 Delaney magnet and dedicated coil, multiplanar, multiecho imaging of the upper abdomen was performed utilizing heavily T2 weighted pulsing sequences without IV contrast. COMPARISON STUDY: CTA of the abdomen and pelvis September 06, 2021. FINDINGS: The caliber of the common bile duct is within normal limits following cholecystectomy, measuring 7 mm. No common bile duct calculi are identified. There is no intrahepatic biliary ductal dilatation. Course and caliber of the main pancreatic duct is normal. Evaluation of the remainder of the abdomen is suboptimal on this unenhanced exam however the liver, spleen, adrenal glands, kidneys and pancreas are unremarkable. There is no peripancreatic fluid. There is no hydronephrosis. No abdominal lymphadenopathy or ascites is present. No suspicious marrow replacement is identified within visualized skeletal structures. IMPRESSION: Unremarkable MRCP status post cholecystectomy. No common bile duct calculi identified. ACT 112: Negative or not required by law. Hospital Course (1) Abdominal pain: Abdominal pain: Patient is 65-year-old female with PMH HTN, HLD, GERD, depression, fibromyalgia, IBS presented to ER with complaint of abdominal pain, vomiting, diarrhea today after eating Today in ER afebrile, P: 62, BP 209/137, 96% on room air. WBC: 15, lactate: 2.0, lipase: 191, liver functions WNL. Troponin: 0.2. CTA abdomen pelvis unremarkable. In ER given Dilaudid, Zofran, 500 mL NSS. Patient without any further abdominal pain, vomiting or diarrhea. Denies any chest pain. (1) Abdominal pain, possible gastritis versus peptic ulcer disease, colitis stone/sludge passage? Abdominal pain has resolved Curiously, LFTs increased, but now trending down again MRCP negative outpatient follow-up with GI Acute coronary syndrome ruled out Patient presented with multiple elevation of 0.2, increased 0.4, then went down to 0.3 Has nonspecific T wave inversions in inferior lead Echocardiogram done EF 60 to 65%, left ventricular wall motion is normal, right ventricular systolic function is normal, mild to moderate mitral regurgitation No chest pain since admission Bicycle Designer consulted, no further cardiac intervention at this point (2) mildly elevated elevated troponin: Plan: Troponin: 0.2. EKG sinus rhythm, T wave inversion in septal leads. Management as above Likely secondary demand ischemia from hypotension, stress, etc. Troponin trended down (3) Hypertension: Plan: Really quite hypertensive in ER, patient was in significant abdominal pain. Since pain medication abdominal pain has resolved and BP is 100/47 BP increased again to systolic 170s this afternoon Added amlodipine 5 mg daily Continue losartan, metoprolol tartrate BP improved outpatient monitoring (4) Hyperlipidemia: Plan: Continue atorvastatin (5) Fibromyalgia: Plan: Continue duloxetine (6) Restless leg syndrome: Plan: Continue ropinirole DVT Prophylaxis -Heparin SQ given Full Code as per discussion with pt Follows with Girish Mancilla PA-C for routine care plan of care discussed with patient in detail and at length all questions answered she is understanding, agreeable, comfortable with the plan of care (2) Elevated troponin: (3) Hypertension: (4) Hyperlipidemia: (5) Fibromyalgia: (6) Restless leg syndrome:
== END 2021-09-09 11:50 | disposition home or self-care (01) | DRG 384 ==
LOC: ED 11:21 → 2N 14:56

== ENCOUNTER 2021-12-19 11:43 | Observation (INO) ==
[2021-12-19] MEDS ORDERED: MoRPHine SULFATE 4 MG/ML 1 ML CARP\\VIAL IV STA ×2 (12:02→13:48)
[2021-12-19] MEDS ORDERED: ONDANSETRON INJ 2 MG/ML 2 ML VIAL IV STA ×2 (12:02→13:51)
[2021-12-19] MEDS ORDERED: SODIUM CHLORIDE 0.9% 1000ML 1,000 ML IV ONE (12:02)
--- NOTE | 2021-12-19 12:05 | Emergency Department Note ---
Impression & Plan Abdominal pain, Vomiting and diarrhea, Leukocytosis ED Provider Note NAME: SOPHIA DUKE AGE: 66 SEX: F : 1955 ARRIVES VIA: Walk-In INFORMANT: Patient ED PROVIDER(S): Bhanu Peguero DO CHIEF COMPLAINT: abdominal pain HPI: Patient is a 66-year-old female who presents to the ER for severe abdominal pain. She notes that she was seen here last night and symptoms have significantly gotten worse. She admits to nausea vomiting. She is unable to keep anything down. She is having diarrhea. Does have a history of irritable bowel and fibromyalgia. No previous abdominal surgeries. Pain is a 10 out of 10 and constant throughout the upper abdomen. She denies any chest pain or shortness of breath. When the pain becomes really severe it will sometimes take her breath away. ROS: See above HPI for pertinent positives & negatives. A total of 10 systems reviewed and were otherwise negative. PAST MEDICAL HISTORY:See Below PAST SURGICAL HISTORY:See Below FAMILY HISTORY:See Below SOCIAL HISTORY:See Below HOME MEDICATIONS:See Below ALLERGIES:See Below VITALS:See Below PHYSICAL EXAMINATION: GENERAL: Bed on the right side holding abdomen tearful/crying moderate distress EYE EXAM: normal conjunctiva. PERRL and EOM's grossly intact. OROPHARYNX: no exudate, no erythema, lips, buccal mucosa, and tongue normal and mucous membranes are moist NECK: supple, no nuchal rigidity, no adenopathy, non-tender LUNGS: Clear to auscultation. Normal chest wall mechanics HEART: no murmurs, S1 normal and S2 normal ABDOMEN: abdomen soft, non-tender, normo-active bowel sounds, no masses, no rebound or guarding. UPPER EXTREMITIES: upper extremities are grossly normal. LOWER EXTREMITIES: No pitting edema. NEURO EXAM: Normal sensorium, cranial nerves II-XII grossly intact, normal speech, no gross weakness of arms, no gross weakness of legs. MEDICAL DECISION MAKING: Patient is a six 6-year-old female who presents ER for above-stated complaint. IV was established blood was obtained. Labs show mild leukocytosis at 11,000. No anemia. BMP with mild hypokalemia at 3.2. LFTs bilirubin and troponin was negative. Lipase was normal. UA was clean. CT angio of the abdomen pelvis was unremarkable. Given 2 dose of morphine and Zofran as well as IV fluids. Continue to have severe pain and nausea and discussed with the hospitalist for observation. Triage Nursing notes reviewed. Limited review of prior medical records performed Vital Signs: reviewed and remarkable for HTN Differential diagnosis: Differential diagnoses includes but is not limited to gastritis, peptic ulcer disease, GERD, gallbladder disease, pancreatitis, small bowel obstruction, acute coronary syndrome, pericarditis, ischemic bowel, irritable bowel disease, irritable bowel syndrome, appendicitis, diverticulitis, malignancy, hernia, urinary tract infection, torsion, /ectopic (if female), perforation, trauma, infectious. ER treatment provided: See below Diagnostics interpreted by me: ECG: none Cardiac Monitoring: An order was placed for continuous cardiac monitoring. The monitor shows a rate of 72 with sinus rhythm. Laboratory studies: As stated above and show below. Imaging studies: CT abdomen pelvis was unremarkable [facility] Procedures: none Critical Care: None Past Med/Surg History Medical History Degenerative disc disease Depression Endometriosis Fibromyalgia GERD (gastroesophageal reflux disease) CONTROLLED Hyperlipidemia Hypertension Irritable bowel syndrome Obesity Osteoarthritis Restless leg syndrome Surgical History History of appendectomy History of bunionectomy RT/LEFT History of carpal tunnel release RT/LEFT History of colonoscopy History of dilatation and curettage History of esophagogastroduodenoscopy (EGD) History of left hip replacement 09/28/18: SAB x1 at L4-L5 at [facility] History of tonsillectomy History of tooth extraction History of total abdominal hysterectomy and bilateral salpingo-oophorectomy History of total knee replacement RT Family History Mother Family history of diabetes mellitus Grandfather Family history of diabetes mellitus Family/Other Family history of diabetes mellitus Social History Smoking Status: Former smoker Tobacco Type: Cigarettes Second Hand Exposure: No; Hx Alcohol Use: No Hx Substance Use: No Preferred Language: Nauruan Communication Ability: Effective Visual Impairment: No Limitations Hearing Ability: Normal 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 Beliefs That Will Affect Care: None marital status: Current Living Situation: Spouse Current Living Situation Comment: With christ duke Feels Safe at Home: Yes Assistive Devices: None Allergies Allergies Allergy/AdvReac Type Severity Reaction Status Date / Time latex Allergy Mild RASH Verified 12/19/21 14:33 nickel Allergy Mild DERMATITIS Verified 12/19/21 14:33 WITH METAL (CHEAP JEWELRY) Quinolones Allergy Unknown UNKNOWN Verified 12/19/21 14:33 REACTION soy Allergy Unknown RASH/SKIN Verified 12/19/21 14:33 IRRITATION NSAIDS (Non-Steroidal AdvReac Intermediate DIARRHEA/IBS Verified 12/19/21 14:33 Anti-Inflamma (WITH BRIM BLOCKER USAGE) Home Meds Home Medications Medication Instructions Recorded Confirmed ascorbic acid (vitamin C) 500 mg 500 mg PO BID 09/20/18 12/19/21 tablet (Vitamin C) duloxetine 60 mg capsule,delayed 60 mg PO QAM 09/20/18 12/19/21 release ferrous sulfate 325 mg (65 mg 325 mg PO QAM 09/20/18 12/19/21 iron) tablet (iron) losartan 100 mg tablet 100 mg PO PM 09/20/18 12/19/21 multivitamin 1 tab PO QAM 09/20/18 12/19/21 atorvastatin 20 mg tablet 20 mg PO PM 07/14/19 12/19/21 baclofen 10 mg tablet 10 mg PO BID PRN 04/23/21 12/19/21 ropinirole 1 mg tablet 1 mg PO UD 04/23/21 12/19/21 acetaminophen 500 mg tablet 1,000 mg PO Q8 PRN 09/04/21 12/19/21 (Tylenol Extra Strength) metoprolol tartrate 50 mg tablet 50 mg PO BID 09/04/21 12/19/21 trazodone 50 mg tablet 50 mg PO HS 09/06/21 12/19/21 calcium carb 333 mg-vit D3 133 1 tab PO QPM 12/19/21 12/19/21 unit-mag ox 133 mg-zinc oxide 5 mg tab (Stan Mag Zinc Plus D3) pantoprazole 40 mg tablet,delayed 40 mg PO DAILY 12/19/21 12/19/21 release potassium 95 mg tablet 95 mg PO DAILY 12/19/21 12/19/21 Previous Rx's Medication Instructions Recorded amlodipine 5 mg tablet (Norvasc) 5 mg PO QAM #30 tab 09/09/21 famotidine 20 mg tablet 20 mg PO BID #20 tab 12/17/21 ondansetron 4 mg disintegrating 4 mg PO Q6H PRN #14 tab 12/17/21 tablet Results & Data (ED) Vital Signs Vital Signs - 24 hr 12/19/21 11:48 12/19/21 12:18 12/19/21 12:20 Temperature 36.4 C L Temperature Source Oral Pulse Rate 73 76 Pulse Rate [Apical] 76 Pulse Rhythm [Apical] Regular Respiratory Rate 22 20 20 Respiratory Effort / Characteristics Non-Labored Blood Pressure 221/127 H Blood Pressure [Left Arm] 208/129 H Blood Pressure Mean 158 Blood Pressure Mean [Left Arm] 155 Pulse Oximetry 98 98 98 Oxygen Delivery Method Room Air Room Air Room Air Sepsis Recent Fever Within 48 Hours No Sepsis New/Unexplained Change in Mental Status No Sepsis Action Taken by Nursing No Action Required 12/19/21 13:45 12/19/21 14:46 Temperature Temperature Source Pulse Rate Pulse Rate [Apical] 77 Pulse Rhythm [Apical] Respiratory Rate 15 Respiratory Effort / Characteristics Blood Pressure Blood Pressure [Left Arm] 208/109 H 170/85 H Blood Pressure Mean Blood Pressure Mean [Left Arm] 142 113 Pulse Oximetry 97 Oxygen Delivery Method Room Air Sepsis Recent Fever Within 48 Hours Sepsis New/Unexplained Change in Mental Status Sepsis Action Taken by Nursing Laboratory Data Result diagrams: 12/19/21 12:10 12/19/21 12:10 Lab Results 12/19/21 12/19/21 12/19/21 Range/Units 12:10 12:10 12:18 WBC 11.07 H (4.8-10.8) K/uL RBC 5.00 (4.2-5.4) M/uL Hgb 15.6 (12.0-16.0) g/dL POC Hgb 16.3 H (12.0-16.0) g/dl Hct 44.8 (37-47) % POC Hct 48 H (37-47) % MCV 89.6 (80-100) fL MCH 31.2 (25-34) pg MCHC 34.8 (32-36) g/dL RDW Std Deviation 42.4 (36.4-46.3) fL RDW Coeff of Marcelo 12.9 (11.5-14.5) % Plt Count 269 (130-400) K/uL MPV 10.4 (7.4-10.4) fL Immature Gran % (Auto) 0.2 % Neut % (Auto) 77.6 % Lymph % (Auto) 17.3 % Greer % (Auto) 4.2 % Eos % (Auto) 0.6 % Baso % (Auto) 0.1 % Neut # (Auto) 8.59 H (1.4-6.5) K/uL Lymph # (Auto) 1.91 (1.2-3.4) K/uL Greer # (Auto) 0.47 (0.11-0.59) K/uL Eos # (Auto) 0.07 (0-0.5) K/uL Baso # (Auto) 0.01 (0-0.2) K/uL Immature Gran # (Auto) 0.02 (0.00-0.02) K/uL POC Sodium 137 (135-144) mmol/L Sodium 135 L (136-145) mmol/L POC Potassium 3.1 L (3.3-5.0) mmol/L Potassium 3.2 L (3.5-5.1) mmol/L POC Chloride 101 (101-112) mmol/L Chloride 100 (98-107) mmol/L Carbon Dioxide 23 (21-32) mmol/L POC Total CO2 23 L (24-31) mmol/L Anion Gap 12 H (3-11) POC Anion Gap 17.0 (16-25) mmol/L POC BUN 24 H (7-18) mg/dl BUN 22 (6-23) mg/dl Creatinine 0.75 (0.6-1.2) mg/dl POC Creatinine 0.7 (0.6-1.3) mg/dl Est Cr Clr Drug Dosing 67.3 ml/min Est GFR ( Amer) 95.6 ml/min Est GFR (Non-Af Amer) 82.5 ml/min BUN/Creatinine Ratio 29.3 H (10-20) Glucose 129 H (70-99(Fasting)) mg/dl POC Glucose (other) 135 H (70-99) mg/dl Calcium 9.8 (8.5-10.1) mg/dl POC Ioniz Calcium Jodie 1.23 (1.12-1.32) mmol/l Total Bilirubin 0.6 (0.2-1.0) mg/dl AST 39 (13-39) U/L ALT 26 (7-52) U/L Alkaline Phosphatase 98 (34-104) U/L Troponin I < 0.03 (0-0.04) ng/ml Total Protein 7.5 (6.0-8.3) gm/dl Albumin 4.7 (3.4-5.0) gm/dl Globulin 2.8 (2.5-4.0) gm/dl Albumin/Globulin Ratio 1.7 (0.9-2) Lipase 27 (11-82) U/L Urine Color Urine Appearance (Clear) Urine pH (4.5-7.5) Ur Specific Bl[place]om (1.000-1.030) Urine Protein (Negative) Urine Glucose (UA) (Negative) Urine Ketones (Negative) Urine Blood (Negative) Urine Nitrite (Negative) Urine Bilirubin (Negative) Urine Urobilinogen (Negative) Ur Leukocyte Esterase (Negative) Urine WBC (Auto) (0-5) /hpf Urine RBC (Auto) (0-4) /hpf U Hyaline Cast (Auto) (0-5) /lpf U Epithel Cells (Auto) (0-5) /lpf Urine Bacteria (Auto) (Negative) SARS-CoV-2, RNA, NAAT (NEGATIVE) 12/19/21 12/19/21 Range/Units 13:42 14:07 WBC (4.8-10.8) K/uL RBC (4.2-5.4) M/uL Hgb (12.0-16.0) g/dL POC Hgb (12.0-16.0) g/dl Hct (37-47) % POC Hct (37-47) % MCV (80-100) fL MCH (25-34) pg MCHC (32-36) g/dL RDW Std Deviation (36.4-46.3) fL RDW Coeff of Marcelo (11.5-14.5) % Plt Count (130-400) K/uL MPV (7.4-10.4) fL Immature Gran % (Auto) % Neut % (Auto) % Lymph % (Auto) % Greer % (Auto) % Eos % (Auto) % Baso % (Auto) % Neut # (Auto) (1.4-6.5) K/uL Lymph # (Auto) (1.2-3.4) K/uL Greer # (Auto) (0.11-0.59) K/uL Eos # (Auto) (0-0.5) K/uL Baso # (Auto) (0-0.2) K/uL Immature Gran # (Auto) (0.00-0.02) K/uL POC Sodium (135-144) mmol/L Sodium (136-145) mmol/L POC Potassium (3.3-5.0) mmol/L Potassium (3.5-5.1) mmol/L POC Chloride (101-112) mmol/L Chloride (98-107) mmol/L Carbon Dioxide (21-32) mmol/L POC Total CO2 (24-31) mmol/L Anion Gap (3-11) POC Anion Gap (16-25) mmol/L POC BUN (7-18) mg/dl BUN (6-23) mg/dl Creatinine (0.6-1.2) mg/dl POC Creatinine (0.6-1.3) mg/dl Est Cr Clr Drug Dosing ml/min Est GFR ( Amer) ml/min Est GFR (Non-Af Amer) ml/min BUN/Creatinine Ratio (10-20) Glucose (70-99(Fasting)) mg/dl POC Glucose (other) (70-99) mg/dl Calcium (8.5-10.1) mg/dl POC Ioniz Calcium Jodie (1.12-1.32) mmol/l Total Bilirubin (0.2-1.0) mg/dl AST (13-39) U/L ALT (7-52) U/L Alkaline Phosphatase (34-104) U/L Troponin I (0-0.04) ng/ml Total Protein (6.0-8.3) gm/dl Albumin (3.4-5.0) gm/dl Globulin (2.5-4.0) gm/dl Albumin/Globulin Ratio (0.9-2) Lipase (11-82) U/L Urine Color Yellow Urine Appearance Clear (Clear) Urine pH 5.5 (4.5-7.5) Ur Specific Bloxom 1.041 H (1.000-1.030) Urine Protein Negative (Negative) Urine Glucose (UA) Negative (Negative) Urine Ketones 1+ H (Negative) Urine Blood Negative (Negative) Urine Nitrite Negative (Negative) Urine Bilirubin Negative (Negative) Urine Urobilinogen Negative (Negative) Ur Leukocyte Esterase 1+ H (Negative) Urine WBC (Auto) 1-5 (0-5) /hpf Urine RBC (Auto) 0-4 (0-4) /hpf U Hyaline Cast (Auto) 1-5 (0-5) /lpf U Epithel Cells (Auto) 10-20 H (0-5) /lpf Urine Bacteria (Auto) Negative (Negative) SARS-CoV-2, RNA, NAAT NEGATIVE (NEGATIVE) Administered Medications Discontinued Medications Sodium Chloride (Nss 1000ml) 1,000 mls @ 999 mls/hr IV .Q1H1M ONE Stop: 12/19/21 13:02 Last Infusion: 12/19/21 13:34 Dose: 0 mls/hr Documented by: [id number] Admin: 12/19/21 12:13 Dose: 999 mls/hr Documented by: [id number] Ioversol (Optiray 320 125ml) 117 ml IV ONCE ONE Stop: 12/19/21 13:19 Last Admin: 12/19/21 13:19 Dose: 117 ml Documented by: [id number] Morphine Sulfate (Morphine Sulfate 4 Mg/Ml 1 Ml Carp\Vial) 4 mg IV NOW STA Stop: 12/19/21 12:03 Last Admin: 12/19/21 12:12 Dose: 4 mg Documented by: [id number] Morphine Sulfate (Morphine Sulfate 4 Mg/Ml 1 Ml Carp\Vial) 4 mg IV NOW STA Stop: 12/19/21 13:49 Last Admin: 12/19/21 14:01 Dose: 4 mg Documented by: [id number] Ondansetron HCl (Ondansetron Inj 2 Mg/Ml 2 Ml Vial) 4 mg IV NOW STA Stop: 12/19/21 12:03 Last Admin: 12/19/21 12:12 Dose: 4 mg Documented by: [id number] Ondansetron HCl (Ondansetron Inj 2 Mg/Ml 2 Ml Vial) 4 mg IV NOW STA Stop: 12/19/21 13:52 Last Admin: 12/19/21 14:01 Dose: 4 mg Documented by: [id number] Imaging Data Radiologist's Impression: Abdomen/Pelvis CTA 12/19/21 12:02 CT ANGIOGRAPHY OF THE ABDOMEN AND PELVIS CLINICAL HISTORY: Severe upper abdominal pain. COMPARISON STUDY: CT angiography of the abdomen and pelvis September 06, 2021. MRCP September 08, 2021. CT of the abdomen and pelvis December 17, 2021. TECHNIQUE: Helical axial images of the abdomen and pelvis were obtained during arterial phase following intravenous injection 117 cc of Optiray 320 IV. Sagit estrella coronal reconstructed reviewed as well as maximal intensity projections on an independent 3-D workstation. Automated exposure control was utilized for the study. A dose lowering technique was utilized adhering to the principles of ALARA. FINDINGS: Lung bases are unremarkable. No pneumatosis, free air or portal venous gas is present. Slight dilatation of the common bile duct is unchanged and likely related to cholecystectomy. Arterial phase images of the liver, spleen, adrenal glands, kidneys and pancreas are unremarkable. There is no peripancreatic infiltration. There is no hydronephrosis. The caliber and wall thickness of small and large bowel are normal. Images of the pelvis are degraded by streak artifact from a left hip arthroplasty. There is no lymphadenopathy or ascites. The caliber of the abdominal aorta is normal. The celiac axis, superior mesenteric artery and inferior mesenteric artery are patent. There is moderate plaque of the abdominal aorta. Bilateral renal arteries are patent. Bilateral common iliac, internal iliac and external iliac arteries are patent. The bilateral common femoral arteries are patent. There is moderate plaque within t he bilateral iliac vessels. There is no dissection within the major vessels of the abdomen or pelvis. No aneurysm is identified. IMPRESSION: 1. Patent abdominal aorta and branch vessels. Moderate aortoiliac atherosclerotic plaque. No stenosis or dissection identified. No change since CTA of September 06, 2021. 2. No acute process within the abdomen or pelvis on arterial phase exam. ACT 112: Negative or not required by law. Electronically signed by: Crescencio Garcia M.D. 12/19/2021 1:39 PM Discharge Plan Visit Data Chief Complaint: Abdominal Pain Stated Complaint: ABDOM PAIN ED Provider: Bhanu Peguero Discharge Problem: Abdominal pain, Vomiting and diarrhea, Leukocytosis Forms Stand Alone Forms: My [employer] Prescriptions Prescriptions: No Action multivitamin Tablet 1 tab PO QAM RF: 0 ascorbic acid (vitamin C) [Vitamin C] 500 mg Tablet 500 mg PO BID RF: 0 ferrous sulfate [iron] 325 mg (65 mg iron) Tablet 325 mg PO QAM RF: 0 losartan 100 mg Tablet 100 mg PO PM RF: 0 duloxetine 60 mg Capsule,Delayed Release(Dr/Ec) 60 mg PO QAM RF: 0 atorvastatin 20 mg Tablet 20 mg PO PM RF: 0 ropinirole 1 mg tablet 1 mg PO UD RF: 0 baclofen 10 mg tablet 10 mg PO BID PRN (Reason: Muscle Spasm) RF: 0 metoprolol tartrate 50 mg tablet 50 mg PO BID RF: 0 acetaminophen [Tylenol Extra Strength] 500 mg tablet 1,000 mg PO Q8 PRN (Reason: Pain) RF: 0 trazodone 50 mg tablet 50 mg PO HS RF: 0 amlodipine [Norvasc] 5 mg Tablet 5 mg PO QAM Qty: 30 RF: 2 potassium 95 mg Tablet 95 mg PO DAILY RF: 0 Stan Mag Zinc Plus D3 333 mg-133 unit -133 mg-5 mg Tablet 1 tab PO QPM RF: 0 pantoprazole 40 mg tablet,delayed release (DR/EC) 40 mg PO DAILY RF: 0 famotidine 20 mg tablet 20 mg PO BID Qty: 20 RF: 0 ondansetron 4 mg tablet,disintegrating 4 mg PO Q6H PRN (Reason: nausea and vomiting) Qty: 14 RF: 0 Referrals Referrals: Mai Lyn PA-C [Primary Care Provider] - Discharge Problem: Abdominal pain Qualifiers: Abdominal location: unspecified location Qualified Code(s): R10.9 - Unspecified abdominal pain Leukocytosis Qualifiers: Leukocytosis type: unspecified Qualified Code(s): D72.829 - Elevated white blood cell count, unspecified
[2021-12-19 12:26] LABS: Basophils # (auto) 0.01 K/uL (0-0.2); Basophils % (auto) 0.1 %; Eosinophils # (auto) 0.07 K/uL (0-0.5); Eosinophils % (auto) 0.6 %; Hematocrit (blood only) 44.8 % (37-47); Hemoglobin 15.6 g/dL (12.0-16.0); Immature Granulocytes # (auto) 0.02 K/uL (0.00-0.02); Immature Granulocytes % (auto) 0.2 %; Lymphocytes # (auto) 1.91 K/uL (1.2-3.4); Lymphocytes % (auto) 17.3 %; Mean Corpuscular Hemoglobin 31.2 pg (25-34); Mean Corpuscular Hgb Conc 34.8 g/dL (32-36); Mean Corpuscular Volume 89.6 fL (80-100); Mean Platelet Volume 10.4 fL (7.4-10.4); Monocytes # (auto) 0.47 K/uL (0.11-0.59); Monocytes % (auto) 4.2 %; Neutrophils # (auto) 8.59 K/uL (1.4-6.5); Neutrophils % (auto) 77.6 %; Platelet Count 269 K/uL (130-400); RDW Coefficient of Variation 12.9 % (11.5-14.5); RDW Standard Deviation 42.4 fL (36.4-46.3); White Blood Count 11.07 K/uL (4.8-10.8)
[2021-12-19 12:31] LABS: iSTAT Creatinine 0.7 mg/dl (0.6-1.3); iSTAT Hemoglobin 16.3 g/dl (12.0-16.0); iSTAT Ionized Calcium 1.23 mmol/l (1.12-1.32); iSTAT Potassium 3.1 mmol/L (3.3-5.0)
[2021-12-19 12:49] LABS: Alanine Aminotransferase 26 U/L (7-52); Albumin Globulin Ratio 1.7 (0.9-2); Albumin Level 4.7 gm/dl (3.4-5.0); Alkaline Phosphatase 98 U/L (34-104); Anion Gap 12 (3-11); Aspartate Aminotransferase 39 U/L (13-39); BUN Creatinine Ratio 29.3 (10-20); Bilirubin,Total 0.6 mg/dl (0.2-1.0); Blood Urea Nitrogen 22 mg/dl (6-23); Calcium 9.8 mg/dl (8.5-10.1); Carbon Dioxide 23 mmol/L (21-32); Chloride 100 mmol/L (98-107); Creatinine Clr Calc Pharmacy 67.3 ml/min; Est GFR (African American) 95.6 ml/min; Est GFR (Non-African American) 82.5 ml/min; Globulin 2.8 gm/dl (2.5-4.0); Glucose 129 mg/dl (70-99(Fasting)); Lipase 27 U/L (11-82); Potassium 3.2 mmol/L (3.5-5.1); Sodium 135 mmol/L (136-145); Total Protein 7.5 gm/dl (6.0-8.3); Troponin I < 0.03 ng/ml (0-0.04)
[2021-12-19] MEDS ORDERED: OPTIRAY 320 125ml IV ONE (13:18)
--- NOTE | 2021-12-19 13:40 | CT Scan Report ---
CT ANGIOGRAPHY OF THE ABDOMEN AND PELVIS CLINICAL HISTORY: Severe upper abdominal pain. COMPARISON STUDY: CT angiography of the abdomen and pelvis September 06, 2021. MRCP September 08, 2021. CT of the abdomen and pelvis December 17, 2021. TECHNIQUE: Helical axial images of the abdomen and pelvis were obtained during arterial phase followi ng intravenous injection 117 cc of Optiray 320 IV. Sagittal coronal reconstructed reviewed as well as maximal intensity projections on an independent 3-D workstation. Automated exposure control was util ized for the study. A dose lowering technique was utilized adhering to the principles of ALARA. FINDINGS: Lung bases are unremarkable. No pneumatosis, free air or portal venous gas is present. Slig ht dilatation of the common bile duct is unchanged and likely related to cholecystectomy. Arterial ph ase images of the liver, spleen, adrenal glands, kidneys and pancreas are unremarkable. There is no p eripancreatic infiltration. There is no hydronephrosis. The caliber and wall thickness of small and l arge bowel are normal. Images of the pelvis are degraded by streak artifact from a left hip arthropla sty. There is no lymphadenopathy or ascites. The caliber of the abdominal aorta is normal. The celiac axis, superior mesenteric artery and inferior mesenteric artery are patent. There is moderate plaque of the abdominal aorta. Bilateral renal arteries are patent. Bilateral common iliac, internal iliac and external iliac arteries are patent. The bilateral common femoral arteries are patent. There is mo derate plaque within the bilateral iliac vessels. There is no dissection within the major vessels of the abdomen or pelvis. No aneurysm is identified. IMPRESSION: 1. Patent abdominal aorta and branch vessels. Moderate aortoiliac atherosclerotic plaque. No stenosis or dissection identified. No change since CTA of September 06, 2021. 2. No acute process within the abdomen or pelvis on arterial phase exam. ACT 112: Negative or not required by law. Electronically signed by: Crescencio Garcia M.D. 12/19/2021 1:39 PM
[2021-12-19 14:30] LABS: Appearance Urine Clear (Clear); Bacteria Urine Automated Negative (Negative); Bilirubin Urine Negative (Negative); Blood Urine Negative (Negative); Color Urine Yellow; Glucose Urine UA Negative (Negative); Ketones Urine 1+ (Negative); Leukocyte Esterase Urine 1+ (Negative); Nitrite Urine Negative (Negative); Protein Urine Negative (Negative); RBC Urine Automated 0-4 /hpf (0-4); Specific Gravity Urine 1.041 (1.000-1.030); Urobilinogen Urine Negative (Negative); pH Urine 5.5 (4.5-7.5)
--- NOTE | 2021-12-19 15:20 | History & Physical Report ---
Date of Service December 19, 2021 Assessment & Plan (1) Abdominal pain: Plan: Pt follows with GI for ongoing issues with abdominal pain - current episodes is more severe and associated with vomiting and diarrhea. Seen in the ED two days ago for same complaint - initially improved but now worse again today and unable to maintain oral intake at home with conservative management. - Admit to med/surg for observation - Continue Zofran for nausea - IVF rehydration - Labs in AM - Resume outpatient PPI therapy which pt stopped taking regularly - Trial of dicyclomine for pain - Consult GI for additional recommendations (2) Vomiting and diarrhea: Plan: - Stool cultures - Anti-emetics (3) Hypertension: Plan: BP elevated in the ED- seems to be improving with better pain control. Will continue home meds and monitor. (4) Hyperlipidemia: (5) Fibromyalgia: (6) Irritable bowel syndrome: (7) GERD (gastroesophageal reflux disease): (8) Depression: (9) Restless leg syndrome: Plan: Continue other home medications as appropriate Pt seen and reviewed with collaborating physician, Dr. Garrett. Plan of care discussed and as outlined above. DVT Prophylaxis: SCDs Code Status: Full code Carol Ann Jane PA-C History of Present Illness Chief Complaint: Abd pain, vomiting Primary Care Provider: Mai Lyn PA-C This is a 66 y/o female with a PMH of HTN, IBS, GERD, dyslipidemia, major depression, insomnia, fibromyalgia, and chronic back pain who presents to the ED with abd pain, N/V/D. Pt reports that she was woken up on 12/17 (2 days ago) with nausea/vomiting and diarrhea - minimal associated pain at this point. Had at least four episodes of emesis this day but since has mostly had dry heaves. Seen in the ED Thursday night and diagnosed with gastroenteritis, work- up essentially negative other than leukocytosis. Sent home on dicyclomine (which she has not started), famotidine, and ondansetron. Yesterday, she slept a lot of the day. Abdominal pain and diarrhea improved though still present. Last night she slept okay and woke up this morning fell fairly good. Tried to eat toast with a slice of cheese this morning but developed worsening abd pain, nausea and vomiting with attempting to eat. Since then, the abdominal pain has continued. Now with dry heaves. Diarrhea continues to improve. Pain is mostly in the RUQ and may radiate to her right back and LUQ. She describes it as sharp, waxing and waning, but not going away completely. She has not been able to maintain her oral intake today due to symptoms. She has noted chills and sweats but no documented fevers. She has had contact with 1 or 2 others with a "flu bug" but no contact with COVID. Pt has received the [employer] vaccine x 2, had COVID one year ago. She did not try the dicyclomine prescribed by the ED but has been using the famotidine and ondansetron. She also notes that she has not been taking her pantoprazole regularly for the past 1-2 weeks. Notes increased life stress as her daughter had a stroke earlier this month. Pt [place] follow [place] [facility]. Had EGD/EUS in Sep that were negative. She was scheduled for an outpatient gastric emptying study but had to cancel due to daughter's illness. Allergies Allergy/AdvReac Type Severity Reaction Status Date / Time latex Allergy Mild RASH Verified 12/19/21 14:33 nickel Allergy Mild DERMATITIS Verified 12/19/21 14:33 WITH METAL (CHEAP JEWELRY) Quinolones Allergy Unknown UNKNOWN Verified 12/19/21 14:33 REACTION soy Allergy Unknown RASH/SKIN Verified 12/19/21 14:33 IRRITATION NSAIDS (Non-Steroidal AdvReac Intermediate DIARRHEA/IBS Verified 12/19/21 14:33 Anti-Inflamma (WITH DETENTION USAGE) Home Medications Medication Instructions Recorded Confirmed Type ascorbic acid (vitamin C) 500 mg 500 mg PO BID 09/20/18 12/19/21 History tablet (Vitamin C) duloxetine 60 mg capsule,delayed 60 mg PO QAM 09/20/18 12/19/21 History release ferrous sulfate 325 mg (65 mg 325 mg PO QAM 09/20/18 12/19/21 History iron) tablet (iron) losartan 100 mg tablet 100 mg PO PM 09/20/18 12/19/21 History multivitamin 1 tab PO QAM 09/20/18 12/19/21 History atorvastatin 20 mg tablet 20 mg PO PM 07/14/19 12/19/21 History baclofen 10 mg tablet 10 mg PO BID PRN 04/23/21 12/19/21 History ropinirole 1 mg tablet 1 mg PO UD 04/23/21 12/19/21 History acetaminophen 500 mg tablet 1,000 mg PO Q8 PRN 09/04/21 12/19/21 History (Tylenol Extra Strength) metoprolol tartrate 50 mg tablet 50 mg PO BID 09/04/21 12/19/21 History trazodone 50 mg tablet 50 mg PO HS 09/06/21 12/19/21 History amlodipine 5 mg tablet (Norvasc) 5 mg PO QAM #30 tab 09/09/21 12/19/21 Rx famotidine 20 mg tablet 20 mg PO BID #20 tab 12/17/21 12/19/21 Rx ondansetron 4 mg disintegrating 4 mg PO Q6H PRN #14 tab 12/17/21 12/19/21 Rx tablet calcium carb 333 mg-vit D3 133 1 tab PO QPM 12/19/21 12/19/21 History unit-mag ox 133 mg-zinc oxide 5 mg tab (Stan Mag Zinc Plus D3) pantoprazole 40 mg tablet,delayed 40 mg PO DAILY 12/19/21 12/19/21 History release potassium 95 mg tablet 95 mg PO DAILY 12/19/21 12/19/21 History Past Med/Surg History Medical History (Updated 12/19/21 @ 15:37 by Stephanie Jane PA-C) Degenerative disc disease Depression Endometriosis Fibromyalgia GERD (gastroesophageal reflux disease) CONTROLLED Hyperlipidemia Hypertension Irritable bowel syndrome Obesity Osteoarthritis Restless leg syndrome Surgical History History of appendectomy History of bunionectomy RT/LEFT History of carpal tunnel release RT/LEFT History of colonoscopy History of dilatation and curettage History of esophagogastroduodenoscopy (EGD) History of left hip replacement 09/28/18: SAB x1 at L4-L5 at [facility] History of tonsillectomy History of tooth extraction History of total abdominal hysterectomy and bilateral salpingo-oophorectomy History of total knee replacement RT Family History Mother Family history of diabetes mellitus Grandfather Family history of diabetes mellitus Family/Other Family history of diabetes mellitus Social History Smoking Status: Never smoker Tobacco Type: Cigarettes Second Hand Exposure: No; Hx Alcohol Use: Yes Hx Substance Use: No Preferred Language: Turkmen Communication Ability: Effective Visual Impairment: No Limitations Hearing Ability: Normal 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 Beliefs That Will Affect Care: None marital status: Current Living Situation: Spouse Current Living Situation Comment: With christ chester Other Information That Helps Us Care for You: No Feels Safe at Home: Yes Safety Concerns: Feels Safe At This Time Assistive Devices: None Review of Systems Review of Systems: All systems reviewed & are unremarkable except as noted in HPI & below Constitutional: + chills, + sweats and + fatigue; no fever Eyes: no diplopia and no worsening vision Ear, Nose, Mouth, Throat: no nasal congestion, no nasal discharge, no sore throat and no dysphagia Respiratory: no cough, no dyspnea, no hemoptysis and no wheezing Cardiovascular: no chest pain, no dyspnea on exertion, no palpitations, no syncope and no edema Gastrointestinal: as per Subjective / HPI Genitourinary: no dysuria, no urinary urgency and no hematuria Musculoskeletal: no neck pain, no joint pain and no myalgia Integumentary: no rash and no yellowing of the skin Neurologic: + dizziness (intermittent past 1-2 days); no unsteadiness and no falls Physical Exam Constitutional: well developed and well nourished; no acute distress Eyes: + anicteric sclerae ENMT: moist mucus membranes Neck: trachea midline Respiratory: no respiratory distress and no labored breathing Auscultation: lungs clear to auscultation bilaterally; no rales, no rhonchi and no wheezes Cardiovascular: Rate/Rhythm: regular rate and regular rhythm Heart Sounds: no gallop, no murmur and no cardiac rub Vessels: dorsalis pedis pulses present and radial pulses present Extremities: no calf tenderness and no pedal edema Gastrointestinal (Abdomen): Inspection/Auscultation: normal bowel sounds; abdomen not distended Percussion/Palpation: + abdomen tender (RUQ >epigastric area), abdomen soft and + tympanic to percussion Musculoskeletal: Head/Neck/Chest: normocephalic, head atraumatic and neck supple Skin: + dry skin; no rashes and no jaundice Neurologic: moves all extremities; no focal motor deficits Psychiatric: A+Ox3, euthymic affect Results & Data Results & Data ([facility]) Vital Signs (Past 12 Hours) Vital Signs Temp Pulse Pulse Resp BP BP Pulse Ox 12/19/21 14:46 170/85 H 12/19/21 13:45 77 15 208/109 H 97 12/19/21 12:20 76 20 98 12/19/21 12:18 76 20 208/129 H 98 12/19/21 11:48 36.4 C L 73 22 221/127 H 98 Laboratory Results Laboratory Results - last 24 hr 12/19/21 12/19/21 12/19/21 12:10 12:10 12:18 WBC 11.07 H RBC 5.00 Hgb 15.6 POC Hgb 16.3 H Hct 44.8 POC Hct 48 H MCV 89.6 MCH 31.2 MCHC 34.8 RDW Std Deviation 42.4 RDW Coeff of Marcelo 12.9 Plt Count 269 MPV 10.4 Immature Gran % (Auto) 0.2 Neut % (Auto) 77.6 Lymph % (Auto) 17.3 [place] % (Auto) 4.2 Eos % (Auto) 0.6 Baso % (Auto) 0.1 Neut # (Auto) 8.59 H Lymph # (Auto) 1.91 [place] # (Auto) 0.47 Eos # (Auto) 0.07 Baso # (Auto) 0.01 Immature Gran # (Auto) 0.02 POC Sodium 137 Sodium 135 L POC Potassium 3.1 L Potassium 3.2 L POC Chloride 101 Chloride 100 Carbon Dioxide 23 POC Total CO2 23 L Anion Gap 12 H POC Anion Gap 17.0 POC BUN 24 H BUN 22 Creatinine 0.75 POC Creatinine 0.7 Est Cr Clr Drug Dosing 67.3 Est GFR ( Amer) 95.6 Est GFR (Non-Af Amer) 82.5 BUN/Creatinine Ratio 29.3 H Glucose 129 H POC Glucose (other) 135 H Calcium 9.8 POC Ioniz Calcium Jodie 1.23 Total Bilirubin 0.6 AST 39 ALT 26 Alkaline Phosphatase 98 Troponin I < 0.03 Total Protein 7.5 Albumin 4.7 Globulin 2.8 Albumin/Globulin Ratio 1.7 Lipase 27 Urine Color Urine Appearance Urine pH Ur Specific [place] Urine Protein Urine Glucose (UA) Urine Ketones Urine Blood Urine Nitrite Urine Bilirubin Urine Urobilinogen Ur Leukocyte Esterase Urine WBC (Auto) Urine RBC (Auto) U Hyaline Cast (Auto) U Epithel Cells (Auto) Urine Bacteria (Auto) SARS-CoV-2, RNA, NAAT 12/19/21 12/19/21 13:42 14:07 WBC RBC Hgb POC Hgb Hct POC Hct MCV MCH MCHC RDW Std Deviation RDW Coeff of Marcelo Plt Count MPV Immature Gran % (Auto) Neut % (Auto) Lymph % (Auto) [place] % (Auto) Eos % (Auto) Baso % (Auto) Neut # (Auto) Lymph # (Auto) [place] # (Auto) Eos # (Auto) Baso # (Auto) Immature Gran # (Auto) POC Sodium Sodium POC Potassium Potassium POC Chloride Chloride Carbon Dioxide POC Total CO2 Anion Gap POC Anion Gap POC BUN BUN Creatinine POC Creatinine Est Cr Clr Drug Dosing Est GFR ( Amer) Est GFR (Non-Af Amer) BUN/Creatinine Ratio Glucose POC Glucose (other) Calcium POC Ioniz Calcium Jodie Total Bilirubin AST ALT Alkaline Phosphatase Troponin I Total Protein Albumin Globulin Albumin/Globulin Ratio Lipase Urine Color Yellow Urine Appearance Clear Urine pH 5.5 Ur Specific [place] 1.041 H Urine Protein Negative Urine Glucose (UA) Negative Urine Ketones 1+ H Urine Blood Negative Urine Nitrite Negative Urine Bilirubin Negative Urine Urobilinogen Negative Ur Leukocyte Esterase 1+ H Urine WBC (Auto) 1-5 Urine RBC (Auto) 0-4 U Hyaline Cast (Auto) 1-5 U Epithel Cells (Auto) 10-20 H Urine Bacteria (Auto) Negative SARS-CoV-2, RNA, NAAT NEGATIVE Diagnostic Findings CTA Abd/Pel 12/19/21 - IMPRESSION:1. Patent abdominal aorta and branch vessels. Moderate aortoiliac atherosclerotic plaque. No stenosis or dissection identified. No change since CTA of September 06, 2021. 2. No acute process within the abdomen or pelvis on arterial phase exam. CT Abd/Pel 12/17/21 - IMPRESSION: 1. No bowel obstruction or bowel wall thickening. 2. Scattered small bowel air-fluid levels may represent a nonspecific enteritis considering the clinical history of acute nausea and vomiting. 3. Incidental findings as above. Medications Administered Discontinued Medications Sodium Chloride (Nss 1000ml) 1,000 mls @ 999 mls/hr IV .Q1H1M ONE Stop: 12/19/21 13:02 Last Infusion: 12/19/21 13:34 Dose: 0 mls/hr Documented by: [id number] Admin: 12/19/21 12:13 Dose: 999 mls/hr Documented by: [id number] Ioversol (Optiray 320 125ml) 117 ml IV ONCE ONE Stop: 12/19/21 13:19 Last Admin: 12/19/21 13:19 Dose: 117 ml Documented by: [id number] Morphine Sulfate (Morphine Sulfate 4 Mg/Ml 1 Ml Carp\\Vial) 4 mg IV NOW STA Stop: 12/19/21 12:03 Last Admin: 12/19/21 12:12 Dose: 4 mg Documented by: [id number] Morphine Sulfate (Morphine Sulfate 4 Mg/Ml 1 Ml Carp\\Vial) 4 mg IV NOW STA Stop: 12/19/21 13:49 Last Admin: 12/19/21 14:01 Dose: 4 mg Documented by: [id number] Ondansetron HCl (Ondansetron Inj 2 Mg/Ml 2 Ml Vial) 4 mg IV NOW STA Stop: 12/19/21 12:03 Last Admin: 12/19/21 12:12 Dose: 4 mg Documented by: [id number] Ondansetron HCl (Ondansetron Inj 2 Mg/Ml 2 Ml Vial) 4 mg IV NOW STA Stop: 12/19/21 13:52 Last Admin: 12/19/21 14:01 Dose: 4 mg Documented by: [id number] Supervising Physician Co-Signing Physician Notes Attending addendum The patient was seen and examined in medical floor She has been complaining of abdominal pain with nausea vomiting diarrhea since Thursday last She has been to ER x2 since then No fever and no chills, no chest pain and no palpitation or shortness of breath On examination Lying in bed with minimal abdominal discomfort Chest-clear to auscultate bilaterally Heart-S1, S2 regular Abdomensoft, mildly tender in the upper quadrants, bowel sound present Extremitiesnegative for any edema Her admission labs, imaging studies reviewed Abdominal pain with nausea vomiting and diarrhea likely secondary to gastroenteritis to rule out peptic ulcer disease, gastroparesis, pancreatitis or any gallbladder related disease Has history of irritable bowel syndrome and fibromyalgia Acute assessment and plan as outlined above by ABDELRAHMAN Mcf[address] Dr (1) Abdominal pain Abdominal location: unspecified location Qualified Code(s): R10.9 - Unspecified abdominal pain (2) Hypertension Hypertension type: unspecified Qualified Code(s): I10 - Essential (primary) hypertension (3) Irritable bowel syndrome Irritable bowel syndrome type: with diarrhea Qualified Code(s): K58.0 - Irritable bowel syndrome with diarrhea
[2021-12-19] MEDS ORDERED: POTASSIUM CHLORIDE CRTAB 20 MEQ TABCR PO STA (15:48)
[2021-12-19] MEDS ORDERED: NSS + 20MEQ KCL 20 MEQ/1,000 ML BAG IV SCH (16:00)
[2021-12-19] MEDS ORDERED: ONDANSETRON INJ 2 MG/ML 2 ML VIAL IV PRN (16:09)
[2021-12-19] MEDS ORDERED: BACLOFEN 10 MG TAB PO PRN (16:09)
[2021-12-19] MEDS: rOPINIRole HCL 1 MG TABLET PO SCH ×2 (17:38→20:43)
[2021-12-19] MEDS: PANTOprazole 40 MG TAB PO SCH (17:38)
[2021-12-19] MEDS: METOPROLOL TARTRATE 50 MG TAB PO SCH (20:43)
[2021-12-19] MEDS: DICYCLOMINE HCL 10 MG CAP PO SCH (20:43)
[2021-12-19] MEDS: FAMOTIDINE 20 MG TAB PO SCH (20:43)
[2021-12-19] MEDS: ACETAMINOPHEN 325 MG TAB PO PRN (20:45)
[2021-12-19] MEDS ORDERED: LOSARTAN POTASSIUM 50 MG TAB PO SCH (21:00)
[2021-12-19] MEDS ORDERED: ATORVASTATIN 20 MG TAB PO SCH (21:00)
[2021-12-19] MEDS ORDERED: traZODone HCL 50 MG TAB PO SCH (21:00)
--- NOTE | 2021-12-20 07:20 | Ultrasound Report ---
ABDOMINAL ULTRASOUND, RIGHT UPPER QUADRANT HISTORY: r/o biliary system stones. COMPARISON: MRCP September 08, 2021. CTA of the abdomen and pelvis December 19, 2021. FINDINGS: No hepatic lesions are identified. There is mild dilatation of the common bile duct status post cholecystectomy. Common bile duct measures 1.1 cm in caliber. No common bile duct calculi are id entified. Pancreas is unremarkable by sonography. Caliber of the main pancreatic duct is at the upper limits of normal. There is no right hydronephrosis. IMPRESSION: Mild dilatation of the common bile duct. This is likely related to cholecystectomy but could be corre lated with liver function tests. No common bile duct calculi identified. ACT 112: Negative or not required by law. Electronically signed by: Crescencio Garcia M.D. 12/20/2021 7:18 AM
[2021-12-20 08:03] LABS: Basophils # (auto) 0.02 K/uL (0-0.2); Basophils % (auto) 0.3 %; Eosinophils % (auto) 3.2 %; Hematocrit (blood only) 36.5 % (37-47); Hemoglobin 12.6 g/dL (12.0-16.0); Immature Granulocytes # (auto) 0.01 K/uL (0.00-0.02); Immature Granulocytes % (auto) 0.2 %; Lymphocytes # (auto) 1.75 K/uL (1.2-3.4); Lymphocytes % (auto) 27.8 %; Mean Corpuscular Hemoglobin 30.9 pg (25-34); Mean Corpuscular Hgb Conc 34.5 g/dL (32-36); Mean Corpuscular Volume 89.5 fL (80-100); Mean Platelet Volume 10.3 fL (7.4-10.4); Monocytes % (auto) 6.3 %; Neutrophils # (auto) 3.92 K/uL (1.4-6.5); Neutrophils % (auto) 62.2 %; Platelet Count 219 K/uL (130-400); RDW Standard Deviation 42.4 fL (36.4-46.3); Red Blood Count 4.08 M/uL (4.2-5.4)
[2021-12-20 08:28] LABS: BUN Creatinine Ratio 21.5 (10-20); Calcium 8.7 mg/dl (8.5-10.1); Creatinine Clr Calc Pharmacy 81.3 ml/min; Est GFR (African American) 106.5 ml/min; Est GFR (Non-African American) 91.9 ml/min; Potassium 3.5 mmol/L (3.5-5.1)
[2021-12-20] MEDS: PANTOprazole 40 MG TAB PO SCH (08:56)
[2021-12-20] MEDS: FAMOTIDINE 20 MG TAB PO SCH (08:56)
[2021-12-20] MEDS: DICYCLOMINE HCL 10 MG CAP PO SCH (08:56)
[2021-12-20] MEDS: METOPROLOL TARTRATE 50 MG TAB PO SCH (08:56)
[2021-12-20] MEDS ORDERED: DULoxetine HCL 60 MG CAP PO SCH (09:00)
[2021-12-20] MEDS ORDERED: amLODIPine BESYLATE 5 MG TAB PO SCH (09:00)
--- NOTE | 2021-12-20 09:48 | Gastrointestinal Consultation ---
Date of Consultation December 20, 2021 Assessment & Plan (1) RUQ pain: (2) Nausea vomiting and diarrhea: Suspect acute gastroenteritis on top of her chronic RUQ pain. -Obtain stool studies given CT findings of possible enteritis, however patient reports resolution of her diarrhea. -Continue Antiemetic therapy as needed, though nausea & vomiting have resolved. -Would advise compliance with Protonix 40 mg BID. Would have her take Pepcid 20 mg BID as well. -OK to continue Dicyclomine to see if it helps with the pain, but this did not offer relief to her as an outpatient previously. She also takes Baclofen for fibromyalgia issues and this has not helped her RUQ pain in the past. -Would advise supportive care while hospitalized then can complete the previously ordered gastric emptying study and update colonoscopy as an outpatient. -As per Dr. Riley's recommendation from her EUS--If she were to develop LFT elevation in addition to her pain, could consider an ERCP, however her LFTs have been consistently normal. -Advance diet as tolerated. History of Present Illness Reason for Consultation: Abdominal pain, nausea, vomiting Attending Physician: Devon Hernandez MD History of Present Illness Patient is a 66 yo female with PMH of HTN, IBS, GERD, dyslipidemia, major depression, insomnia, fibromyalgia, and chronic back pain who presented to the ED with abdominal pain, nausea, vomiting, & diarrhea. She has a history of chronic RUQ pain of unclear etiology for which she has had an abdominal US, multiple CT scans, colonoscopy, EGD, MRCP, EUS, PPI therapy, antispasmodic therapy, H2 blockers, & Carafate without relief of her pain. After her recent EUS, Dr. Riley had suggested considering ERCP if pain occurred simultaneously with LFT elevation, but this has not happened. She notes that Thursday, she developed n/v/d. This is new. She was in the ER for evaluation earlier in the week and her work-up was consistent with gastroenteritis. She has abdominal CT findings consistent with this finding as well as leukocytosis. She apparently was again prescribed Dicyclomine, but did not start taking it. She was also told to take Famotidine & Zofran. She returned to the ED with worsening n/v/d in addition to the RUQ pain that presented with radiation to the back. She has sick contacts recently to people with a reported GI bug. She did admit that she hasn't been taking her PPI consistently over the past several weeks and has been under a lot of stress. She was scheduled for a gastric emptying study, but cancelled due to daughter's illness. In the ED, her K was low at 3.1.LFTs unremarkable. Lipase slightly elevated at 92, but no imaging findings on CT and CTA of pancreatitis. At the present time, all of her symptoms have resolved and she is wanting to eat a light diet. She feels able to return home. She notes her also has some type of viral GI illness at this time. Allergies Allergy/AdvReac Type Severity Reaction Status Date / Time latex Allergy Mild RASH Verified 12/19/21 14:33 nickel Allergy Mild DERMATITIS Verified 12/19/21 14:33 WITH METAL (CHEAP JEWELRY) Quinolones Allergy Unknown UNKNOWN Verified 12/19/21 14:33 REACTION soy Allergy Unknown RASH/SKIN Verified 12/19/21 14:33 IRRITATION NSAIDS (Non-Steroidal AdvReac Intermediate DIARRHEA/IBS Verified 12/19/21 14:33 Anti-Inflamma (WITH LIME KILN OPERATOR USAGE) Home Medications Medication Instructions Recorded Confirmed Type ascorbic acid (vitamin C) 500 mg 500 mg PO BID 09/20/18 12/19/21 History tablet (Vitamin C) duloxetine 60 mg capsule,delayed 60 mg PO QAM 09/20/18 12/19/21 History release ferrous sulfate 325 mg (65 mg 325 mg PO QAM 09/20/18 12/19/21 History iron) tablet (iron) losartan 100 mg tablet 100 mg PO PM 09/20/18 12/19/21 History multivitamin 1 tab PO QAM 09/20/18 12/19/21 History atorvastatin 20 mg tablet 20 mg PO PM 07/14/19 12/19/21 History baclofen 10 mg tablet 10 mg PO BID PRN 04/23/21 12/19/21 History ropinirole 1 mg tablet 1 mg PO UD 04/23/21 12/19/21 History acetaminophen 500 mg tablet 1,000 mg PO Q8 PRN 09/04/21 12/19/21 History (Tylenol Extra Strength) metoprolol tartrate 50 mg tablet 50 mg PO BID 09/04/21 12/19/21 History trazodone 50 mg tablet 50 mg PO HS 09/06/21 12/19/21 History amlodipine 5 mg tablet (Norvasc) 5 mg PO QAM #30 tab 09/09/21 12/19/21 Rx famotidine 20 mg tablet 20 mg PO BID #20 tab 12/17/21 12/19/21 Rx ondansetron 4 mg disintegrating 4 mg PO Q6H PRN #14 tab 12/17/21 12/19/21 Rx tablet calcium carb 333 mg-vit D3 133 1 tab PO QPM 12/19/21 12/19/21 History unit-mag ox 133 mg-zinc oxide 5 mg tab (Stan Mag Zinc Plus D3) pantoprazole 40 mg tablet,delayed 40 mg PO DAILY 12/19/21 12/19/21 History release potassium 95 mg tablet 95 mg PO DAILY 12/19/21 12/19/21 History Patient History Medical History (Updated 12/20/21 @ 09:41 by Marissa Washburn PA-C) Degenerative disc disease Depression Endometriosis Fibromyalgia GERD (gastroesophageal reflux disease) CONTROLLED Hyperlipidemia Hypertension Irritable bowel syndrome Obesity Osteoarthritis Restless leg syndrome Surgical History History of appendectomy History of bunionectomy RT/LEFT History of carpal tunnel release RT/LEFT History of colonoscopy History of dilatation and curettage History of esophagogastroduodenoscopy (EGD) History of left hip replacement 09/28/18: SAB x1 at L4-L5 at [facility] History of tonsillectomy History of tooth extraction History of total abdominal hysterectomy and bilateral salpingo-oophorectomy History of total knee replacement RT Family History Mother Family history of diabetes mellitus Grandfather Family history of diabetes mellitus Family/Other Family history of diabetes mellitus Social History Smoking Status: Never smoker Tobacco Type: Cigarettes Second Hand Exposure: No; Hx Alcohol Use: Yes Hx Substance Use: No Preferred Language: Guinean Communication Ability: Effective Visual Impairment: No Limitations Hearing Ability: Normal 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 Beliefs That Will Affect Care: None marital status: Current Living Situation: Spouse Current Living Situation Comment: With christ chester Other Information That Helps Us Care for You: No Feels Safe at Home: Yes Safety Concerns: Feels Safe At This Time Assistive Devices: None Review of Systems Constitutional: no fever and no chills Respiratory: no cough and no dyspnea Cardiovascular: no chest pain Gastrointestinal: + abdominal pain, + nausea, + vomiting and + diarrhea/loose stools Musculoskeletal: + joint pain Neurologic: no problem reported Psychiatric: + problem reported (stress) Hematologic / Lymphatic: no unexplained weight loss Physical Exam Constitutional: WD/WN, vitals as above Respiratory: normal respiratory effort, lungs clear to auscultation Cardiovascular: RRR, no murmur, no edema Gastrointestinal (Abdomen): normal bowel sounds, soft, nontender, no hepatosplenomegaly Musculoskeletal: Head/Neck/Chest: normocephalic Skin: no jaundice Psychiatric: Orientation: alert and oriented x 3 Results & Data ([facility]) Vital Signs (Past 12 Hours) Vital Signs Temp Pulse Resp BP Pulse Ox 12/20/21 07:39 36.6 C 57 L 14 135/73 95 12/19/21 22:08 36.8 C 62 16 145/75 H 96 PG Care Time/CCT Total # of Minutes Spent Total Time Spent with Patient: Total time spent is greater than 50% in coordination of care (as documented) at patient's floor/unit and/or counseling patient: Coding Level of Care Code 49190 Initial Inpt Care Lvl 3 Diagnoses RUQ pain R10.11 Nausea vomiting and diarrhea R11.2; R19.7
[2021-12-20] MEDS: ACETAMINOPHEN 325 MG TAB PO PRN (12:10)
[2021-12-20 14:52] LABS: Adenovirus F 40/41 PCR Not Detected (NotDetected); Astrovirus PCR Not Detected (NotDetected); Campylobacter PCR Not Detected (NotDetected); Cryptosporidium PCR Not Detected (NotDetected); Cyclospora cayetanensis PCR Not Detected (NotDetected); Entamoeba histolytica PCR Not Detected (NotDetected); Enteroaggregative E.coli(EAEC) Not Detected (NotDetected); Enteropathogenic E.coli (EPEC) Not Detected (NotDetected); Enterotoxigenic E.coli (ETEC) Not Detected (NotDetected); Giardia lamblia PCR Not Detected (NotDetected); Plesiomonas shigelloides PCR Not Detected (NotDetected); Rotavirus A PCR Not Detected (NotDetected); Salmonella PCR Not Detected (NotDetected); Sapovirus PCR Not Detected (NotDetected); Shiga-like Toxin E.coli (STEC) Not Detected (NotDetected); Shigella/Enteroinvasive E.coli Not Detected (NotDetected); Vibrio cholerae PCR Not Detected (NotDetected); Vibrio species PCR Not Detected (NotDetected); Yersinia enterocolitica PCR Not Detected (NotDetected)
[2021-12-20 15:00] LABS: Norovirus GI/GII PCR DETECTED (NotDetected)
[2021-12-20 16:05] LABS: Cdiff Antigen Positive; Cdiff Toxin A+B Negative Cdiff Toxin (Negative)
--- NOTE | 2021-12-20 16:24 | Discharge Summary ---
Date of Service December 20, 2021 Admission HPI Per Admitting Provider This is a 66 y/o female with a PMH of HTN, IBS, GERD, dyslipidemia, major depression, insomnia, fibromyalgia, and chronic back pain who presents to the ED with abd pain, N/V/D. Pt reports that she was woken up on 12/17 (2 days ago) with nausea/vomiting and diarrhea - minimal associated pain at this point. Had at least four episodes of emesis this day but since has mostly had dry heaves. Seen in the ED Thursday night and diagnosed with gastroenteritis, work- up essentially negative other than leukocytosis. Sent home on dicyclomine (which she has not started), famotidine, and ondansetron. Yesterday, she slept a lot of the day. Abdominal pain and diarrhea improved though still present. Last night she slept okay and woke up this morning fell fairly good. Tried to eat toast with a slice of cheese this morning but developed worsening abd pain, nausea and vomiting with attempting to eat. Since then, the abdominal pain has continued. Now with dry heaves. Diarrhea continues to improve. Pain is mostly in the RUQ and may radiate to her right back and LUQ. She describes it as sharp, waxing and waning, but not going away completely. She has not been able to maintain her oral intake today due to symptoms. She has noted chills and sweats but no documented fevers. She has had contact with 1 or 2 others with a "flu bug" but no contact with COVID. Pt has received the Pfizer vaccine x 2, had COVID one year ago. She did not try the dicyclomine prescribed by the ED but has been using the famotidine and ondansetron. She also notes that she has not been taking her pantoprazole regularly for the past 1-2 weeks. Notes increased life stress as her daughter had a stroke earlier this month. Pt does follow with [facility]. Had EGD/EUS in Nov that were negative. She was scheduled for an outpatient gastric emptying study but had to cancel due to daughter's illness. Admission Exam Per Admitting Provider Constitutional: well developed and well nourished; no acute distress Eyes: + anicteric sclerae ENMT: moist mucus membranes Neck: trachea midline Respiratory: no respiratory distress and no labored breathing Auscultation: lungs clear to auscultation bilaterally; no rales, no rhonchi and no wheezes Cardiovascular: Rate/Rhythm: regular rate and regular rhythm Heart Sounds: no gallop, no murmur and no cardiac rub Vessels: dorsalis pedis pulses present and radial pulses present Extremities: no calf tenderness and no pedal edema Gastrointestinal (Abdomen): Inspection/Auscultation: normal bowel sounds; abdomen not distended Percussion/Palpation: + abdomen tender (RUQ >epigastric area), abdomen soft and + tympanic to percussion Musculoskeletal: Head/Neck/Chest: normocephalic, head atraumatic and neck supple Skin: + dry skin; no rashes and no jaundice Neurologic: moves all extremities; no focal motor deficits Psychiatric: A+Ox3, euthymic affect Principal Diagnosis Norovirus gastroenteritis Discharge Exam Gen: WD/WN, NAD, sitting in bedside chair, A&Ox3 HEENT: Normocephalic, atraumatic, conjunctivae moist, sclerae anicteric, mucous membranes moist Lung: Clear to Auscultation bilaterally, no wheezes/rales/rhonchi Heart: Regular rate, regular rhythm, no murmurs, rubs, or gallops Abdomen: Soft, NT, ND +BS x 4 Extremities: no edema Skin: Warm, no rash Discharge Data Allergies Allergy/AdvReac Type Severity Reaction Status Date / Time latex Allergy Mild RASH Verified 12/19/21 14:33 nickel Allergy Mild DERMATITIS Verified 12/19/21 14:33 WITH METAL (CHEAP JEWELRY) Quinolones Allergy Unknown UNKNOWN Verified 12/19/21 14:33 REACTION soy Allergy Unknown RASH/SKIN Verified 12/19/21 14:33 IRRITATION NSAIDS (Non-Steroidal AdvReac Intermediate DIARRHEA/IBS Verified 12/19/21 14:33 Anti-Inflamma (WITH FRAMING INSPECTOR USAGE) Consultations 12/19/21 13:48 ED Decision to Admit Stat 12/19/21 16:09 Consult Gastroenterology Routine Ordered Studies 12/19/21 12:02 CT angio abdomen pelvis w con Stat 12/19/21 17:15 US abdomen limited Routine Hospital Course (1) Nausea vomiting and diarrhea: (2) RUQ pain: (3) Gastroenteritis: (4) Depression: (5) Fibromyalgia: This is a 66 y/o female with a PMH of HTN, IBS, GERD, dyslipidemia, major depression, insomnia, fibromyalgia, and chronic back pain who presents to the ED with abd pain, N/V/D over the past few days. CT abd/pelvis and abdominal ultrasound without acute abnormalities. Nausea and vomiting have resolved since yesterday and is tolerating a diet without issue. Has had a few episodes today but is staying hydrated and has an appetite again. GI service evaluated patient and suspects acute gastroenteritis on top of her chronic RUQ pain. Stool culture positive for Norovirus. C diff gene detected but noted previously. C diff toxin negative. Advised to continue Protonix 40mg twice daily and Pepcid 20mg twice daily as well. GI follow up as scheduled and to complete previously ordered gastric emptying study and update colonoscopy as an outpatient. Patient hemodynamically stable at time of discharge. Total Time Total Time Spent Total Time Spent (In Minutes): 35 Discharge Plan Discharge Items Patient Disposition: Home - Self-Care Reason For Visit: ABD PAIN, N/V Discharge Diagnosis: Norovirus gastroenteritis Activity: Resume your previous activity Non-emergency contact: Primary Care Provider and Prevention Rn Call non-emergency contact if: you have any medication questions, your symptoms worsen, your pain is not controlled and you have a fever Follow-up/Referrals: Mai Lyn PA-C [Primary Care Provider] - (Date & Time 12/27/2021 4:00 PM Provider Carly Hensley MD Department [facility] [place] ) Diet: Regular and Other - See Diet Comment Diet Comment: limit dairy intake until symptoms resolve Addtl Attending Provider Instructions: You were admitted for RUQ pain, nausea vomiting and diarrhea that have since resolved. Stool culture positive for Norovirus. GI evaluated - advised to continue Protonix 40mg twice daily and Pepcid 20mg twice daily as well. Complete previously ordered gastric emptying study and update colonoscopy as an outpatient. MEDICATION CHANGES: Continue home medications as ordered. RECOMMENDATIONS FOR FOLLOW-UP: Follow up with PCP Dr. Salazar on 12/27/2021 at4:00 PM. Follow up with GI as previously scheduled. Please continue a diet of mild foods and avoid dairy for now. Continue hydrating with water. Zofran prescribed as needed for nausea. OTHER INSTRUCTIONS: Seek medical attention if you have: * temperature above 101 * chest pain or trouble breathing * abdominal pain, nausea, vomiting * diarrhea, dark stools or bloody stools * any unanswered questions or concerns Call 911 if symptoms are severe. Please take good care of yourself. Call if you have any questions or problems. You can reach a [facility] hospitalist on duty at [facility] 24 hours a day by calling [phone]. [facility]HMAN [facility] Pending Studies at Discharge: No Stand-Alone Forms: [facility], Smoking Cessation Medications and DC Order Prescriptions: Continued multivitamin Tablet 1 tab PO QAM RF: 0 ascorbic acid (vitamin C) [Vitamin C] 500 mg Tablet 500 mg PO BID RF: 0 ferrous sulfate [iron] 325 mg (65 mg iron) Tablet 325 mg PO QAM RF: 0 losartan 100 mg Tablet 100 mg PO PM RF: 0 duloxetine 60 mg Capsule,Delayed Release(Dr/Ec) 60 mg PO QAM RF: 0 atorvastatin 20 mg Tablet 20 mg PO PM RF: 0 ropinirole 1 mg tablet 1 mg PO UD RF: 0 baclofen 10 mg tablet 10 mg PO BID PRN (Reason: Muscle Spasm) RF: 0 metoprolol tartrate 50 mg tablet 50 mg PO BID RF: 0 acetaminophen [Tylenol Extra Strength] 500 mg tablet 1,000 mg PO Q8 PRN (Reason: Pain) RF: 0 trazodone 50 mg tablet 50 mg PO HS RF: 0 amlodipine [Norvasc] 5 mg Tablet 5 mg PO QAM Qty: 30 RF: 2 potassium 95 mg Tablet 95 mg PO DAILY RF: 0 Stan Mag Zinc Plus D3 333 mg-133 unit -133 mg-5 mg Tablet 1 tab PO QPM RF: 0 pantoprazole 40 mg tablet,delayed release (DR/EC) 40 mg PO BID RF: 0 famotidine 20 mg tablet 20 mg PO BID Qty: 20 RF: 0 ondansetron 4 mg tablet,disintegrating 4 mg PO Q6H PRN (Reason: nausea and vomiting) Qty: 14 RF: 0 Discharge Orders: Discharge Order (Routine); Ordered 12/20/21 Ordered By: Ekaterina Lagunas/Other Patient Handouts: Understanding Norovirus Admission Data Admit Date/Time: 12/19/21 14:19 Attending Provider: Devon Hernandez Admit Provider: Jose David Garrett Primary Care Provider: Mai Lyn Other Providers: Kyler Owens ; Ekaterina Galindo Other Interventions: Discharge Summary Assessment (RN) Last Done: 12/20/21 16:19 Supervising Physician Co-Signing Physician Notes Patient is seen and examined at bedside. States having minimal abdominal discomfort on palpation. Denies any nausea, vomiting, diarrhea this morning. Discussed with GI today. Stool cultures negative for C. difficile but showed positive for norovirus. Patient admits to having contact with family member with similar symptoms. On exam patient is moderately built and nourished, no apparent distress, normocephalic atraumatic, EOMI, normal breath sounds, clear to auscultation, S1-S2, no murmur, no pedal edema, abdomen soft, mild generalized tenderness, no guarding or rigidity, normal bowel sounds, alert, awake, oriented, grossly no focal deficits. Patient is managed for gastroenteritis secondary to norovirus. Appreciate GI input. Imaging studies reviewed. Advised to follow-up with GI as outpatient. Also advised to keep herself hydrated and to seek immediate medical attention if symptoms worsen. Tolerated regular diet. Hypokalemia resolved. I personally reviewed the record. Patient is interviewed and examined at bedside. Patient's care is coordinated with Ekaterina Galindo PA-C. Please refer to the documentation above for details of patient's presentation and for discussion of other issues.
== END 2021-12-20 17:35 | disposition home or self-care (01) ==
LOC: ED 11:43 → 3N 11:43 → SUATTDRO 14:19 → 3N 15:46

== ENCOUNTER 2023-03-10 05:47 | Inpatient (IN) ==
--- NOTE | 2023-02-20 11:24 | PAT Medication Instructions ---
Medication Instructions Date of Service February 20, 2023 Home Medications Medication Instructions Recorded amlodipine 5 mg tablet (Norvasc) 5 mg PO QAM #30 tabs 09/09/21 famotidine 20 mg tablet 20 mg PO BID #20 tabs 12/17/21 ondansetron 4 mg disintegrating 4 mg PO Q6H PRN nausea and 12/17/21 tablet vomiting #14 tabs pantoprazole 40 mg tablet,delayed See Rx Instructions .Route 06/30/22 release .COMPLEX #60 tabs ascorbic acid (vitamin C) 500 mg tablet (Vitamin C) 500 mg PO BID duloxetine 60 mg capsule,delayed release 60 mg PO QAM ferrous sulfate 325 mg (65 mg iron) tablet (iron) 325 mg PO QAM losartan 100 mg tablet 100 mg PO PM multivitamin 1 tab PO QAM atorvastatin 20 mg tablet 20 mg PO PM ropinirole 1 mg tablet 1 mg PO UD acetaminophen 500 mg tablet (Tylenol Extra Strength) 1,000 mg PO Q8 PRN metoprolol tartrate 50 mg tablet 50 mg PO BID trazodone 50 mg tablet 50 mg PO HS amlodipine 5 mg tablet (Norvasc) 5 mg PO QAM famotidine 20 mg tablet 20 mg PO BID ondansetron 4 mg disintegrating tablet 4 mg PO Q6H PRN calcium carb 333 mg-vit D3 133 unit-mag ox 133 mg-zinc oxide 5 mg tab (Stan Mag Zinc Plus D3) 1 tab PO QPM potassium 95 mg tablet 95 mg PO QPM pantoprazole 40 mg tablet,delayed release See Rx Instructions .Route .COMPLEX Continue as directed ropinirole 1 mg tablet 1 mg PO UD pantoprazole 40 mg tablet,delayed release See Rx Instructions .Route .COMPLEX ondansetron 4 mg disintegrating tablet 4 mg PO Q6H PRN(if needed) DO NOT take the morning of surgery ascorbic acid (vitamin C) 500 mg tablet (Vitamin C) 500 mg PO BID ferrous sulfate 325 mg (65 mg iron) tablet (iron) 325 mg PO QAM multivitamin 1 tab PO QAM Take morning of surgery With a small sip of water, OTHERWISE NOTHING TO EAT OR DRINK AFTER MIDNIGHT: duloxetine 60 mg capsule,delayed release 60 mg PO QAM acetaminophen 500 mg tablet (Tylenol Extra Strength) 1,000 mg PO Q8 PRN(if needed) metoprolol tartrate 50 mg tablet 50 mg PO BID amlodipine 5 mg tablet (Norvasc) 5 mg PO QAM famotidine 20 mg tablet 20 mg PO BID Take evening before surgery ascorbic acid (vitamin C) 500 mg tablet (Vitamin C) 500 mg PO BID losartan 100 mg tablet 100 mg PO PM atorvastatin 20 mg tablet 20 mg PO PM acetaminophen 500 mg tablet (Tylenol Extra Strength) 1,000 mg PO Q8 PRN(if needed) metoprolol tartrate 50 mg tablet 50 mg PO BID trazodone 50 mg tablet 50 mg PO HS famotidine 20 mg tablet 20 mg PO BID calcium carb 333 mg-vit D3 133 unit-mag ox 133 mg-zinc oxide 5 mg tab (Stan Mag Zinc Plus D3) 1 tab PO QPM potassium 95 mg tablet 95 mg PO QPM Other Notes If you have any questions please call us at [phone] or [phone] or [phone] or [phone]
--- NOTE | 2023-02-25 10:47 | Anesthesiology Consultation ---
Date of Service February 25, 2023 Assessment & Plan (1) Encounter for pre-operative examination: Chart Review Chart Review: Acceptable Risk for Surgery (pending PCP clearance 03/02/23) and Patient seen in Pre Admission Testing - Awaiting PCP clearance 03/02/23 Per PAT appt on 02/25/23, patient denies any recent travel or large group activities. Pt tested Covid positive 12/12/22 (had N/V/D and abdominal pain). Covid test scanned into lab section. Pt denies any known Covid exposures; no current Covid related symptoms. Pt is vaccinated for Covid. Pt will be 88 days from Covid positive test by DOS- per 90 day protocol- patient does NOT need [facility] test DOS even with inpatient status. Educated on importance of using Covid precautions one week prior to surgery Teaching & Discussion Pre-Anesthesia Teaching/Discussion Notes: Instructed NPO after midnight before surgery,except medications with 15 cc of water. Medication instructions provided according to the PAT guidelines. History Surgery Operation Date: 03/10/23 07:45 Proposed Procedures p L2-L5 Decompression and Fusion, Spinal Cord Monitoring - Ciro Montalvo DO Height/Weight Height: 5 ft 4 in Weight: 82.2 kg Allergies Allergy/AdvReac Type Severity Reaction Status Date / Time latex Allergy Mild RASH Verified 02/20/23 09:03 nickel Allergy Mild DERMATITIS Verified 02/20/23 09:03 WITH METAL (CHEAP JEWELRY) Quinolones Allergy Unknown UNKNOWN Verified 02/20/23 09:03 REACTION soy Allergy Unknown RASH/SKIN Verified 02/20/23 09:03 IRRITATION NSAIDS (Non-Steroidal AdvReac Intermediate DIARRHEA/IBS Verified 02/20/23 09:03 Anti-Inflamma (WITH TAKER OFF USAGE) Medications Home Medications Medication Instructions Recorded Confirmed Last Taken ascorbic acid (vitamin C) 500 mg 500 mg PO BID 09/20/18 02/20/23 09/06/21 tablet (Vitamin C) duloxetine 60 mg capsule,delayed 60 mg PO QAM 09/20/18 02/20/23 09/06/21 release ferrous sulfate 325 mg (65 mg 325 mg PO QAM 09/20/18 02/20/23 09/06/21 iron) tablet (iron) losartan 100 mg tablet 100 mg PO PM 09/20/18 02/20/23 09/05/21 multivitamin 1 tab PO QAM 09/20/18 02/20/23 09/06/21 atorvastatin 20 mg tablet 20 mg PO PM 07/14/19 02/20/23 09/05/21 ropinirole 1 mg tablet 1 mg PO UD 04/23/21 02/20/23 09/05/21 acetaminophen 500 mg tablet 1,000 mg PO Q8 PRN Pain 09/04/21 02/20/23 09/06/21 (Tylenol Extra Strength) 1500 mg metoprolol tartrate 50 mg tablet 50 mg PO BID 09/04/21 02/20/23 09/06/21 trazodone 50 mg tablet 50 mg PO HS 09/06/21 02/20/23 09/05/21 amlodipine 5 mg tablet (Norvasc) 5 mg PO QAM #30 tabs 09/09/21 02/20/23 Unknown famotidine 20 mg tablet 20 mg PO BID #20 tabs 12/17/21 02/20/23 Unknown ondansetron 4 mg disintegrating 4 mg PO Q6H PRN nausea and 12/17/21 02/20/23 Unknown tablet vomiting #14 tabs calcium carb 333 mg-vit D3 133 1 tab PO QPM 12/19/21 02/20/23 Unknown unit-mag ox 133 mg-zinc oxide 5 mg tab (Stan Mag Zinc Plus D3) potassium 95 mg tablet 95 mg PO QPM 12/19/21 02/20/23 Unknown pantoprazole 40 mg tablet,delayed See Rx Instructions .Route 06/30/22 02/20/23 Unknown release .COMPLEX #60 tabs Past Medical History Medical History Degenerative disc disease Depression Fibromyalgia Intermittent flares GERD (gastroesophageal reflux disease) CONTROLLED Hyperlipidemia Hypertension Irritable bowel syndrome Stable currently Obesity Restless leg syndrome Exercise / Class Metabolic Activity II 4-5 Yardwork/Stairs/Walk up hill (one flight of stairs - no chest pain or SOB) Past Family History Family History Mother Family history of diabetes mellitus Grandfather Family history of diabetes mellitus Family/Other Family history of diabetes mellitus Past Surgical History Surgical History History of appendectomy History of bunionectomy BL History of carpal tunnel release BL History of cholecystectomy History of colonoscopy History of dilatation and curettage History of esophagogastroduodenoscopy (EGD) History of left hip replacement 09/28/18: SAB x1 at L4[facility]L5 at [facility] History of tonsillectomy History of tooth extraction History of total abdominal hysterectomy and bilateral salpingo-oophorectomy Total/complete hysterectomy History of total knee replacement BL Past Anesthesia History No Hx of Anesthesia Complications and No Family Hx of Anesthesia Complications History of PONV No Hx of PONV and No Hx of Motion Sickness Social History Smoking Status: Former smoker tobacco type: cigarettes Do You Dip or Chew Tobacco: No Smoking End Date: 30 years ago Hx Alcohol Use: Yes alcohol intake frequency: holidays/special occasions only Hx Substance Use: No substance use type: does not use Review of Systems Chronic cough- due to allergies- chronic/mild and stable Snoring - hx of sleep study- no TABBY Patient denies chest pain, shortness of breath, dyspnea on exertion, wheezing, palpitations. No hx of seizures, stroke, GA. No hx of blood clots or blood transfusions Physical Exam Vital Signs VITALS BP 124/82 P 63 TEMP 98.7 SP02 94% RESP 16 Constitutional no acute distress ENMT Mouth: no TMJ clicking Thyromental Distance: > or= 3.5 Finger Breadths (3.5) Mallampati Class: II Top front teeth capped Missing molars Neck neck extension not limited Respiratory normal respiratory effort; no respiratory distress Auscultation: lungs clear to auscultation bilaterally; no wheezes Cardiovascular Rate/Rhythm: regular rate and regular rhythm Heart Sounds: no murmur Vessels: no carotid bruit Musculoskeletal Spine: no pain with cervical ROM Extremities: extremities normal to inspection Psychiatric Orientation: alert Lab Results Anesthesia Preop Results Results Anesthesia Widget: WBC 10.40 K/ul (4.8-10.8) 02/25/23 Hgb 12.7 g/dl (12.0-16.0) 02/25/23 Hct 36.7 % (37.0-47.0) L 02/25/23 Plt 248 K/uL (130-400) 02/25/23 Na 139 mmol/L (136-145) 02/25/23 K 4.3 mmol/L (3.5-5.1) 02/25/23 Cl 104 mmol/L (98-107) 02/25/23 CO2 27 mmol/L (21-32) 02/25/23 BUN 17 mg/dl (6-23) 02/25/23 Creat 0.74 mg/dl (0.6-1.2) 02/25/23 Glucose Level 112 mg/dl (70-99(Fasting)) H 02/25/23 PT 10.1 Seconds (9.0-12.0) 02/25/23 PTT 24.9 Seconds (21.0-31.0) 02/25/23 INR 0.9 (0.9-1.1) 02/25/23 Urine Color Yellow 02/25/23 Urine Appearance Clear (Clear) 02/25/23 Urine pH 6.0 (4.5-7.5) 02/25/23 Urine Specific [place] 1.011 (1.000-1.030) 02/25/23 Urine Protein Negative (Negative) 02/25/23 Urine Glucose (UA) Negative (Negative) 02/25/23 Urine Ketones Negative (Negative) 02/25/23 Urine Blood Negative (Negative) 02/25/23 Urine Nitrite Negative (Negative) 02/25/23 Urine Bilirubin Negative (Negative) 02/25/23 Urine Urobilinogen Negative (Negative) 02/25/23 Urine Leukocyte Esterase 2+ (Negative) H 02/25/23 Urine WBC (Auto) 1-5 /hpf (0-5) 02/25/23 Urine RBC (Auto) 0-4 /hpf (0-4) 02/25/23 Urine Hyaline Casts (Auto) 0 /lpf (0-5) 02/25/23 Urine Epithelial Cells (Auto) 20-30 /lpf (0-5) H 02/25/23 Urine Bacteria (Auto) Negative (Negative) 02/25/23 Blood Type A Positive 02/25/23 Antibody Screen NEGATIVE 02/25/23 Testing Electrocardiogram Date: 02/25/23 Findings: + NSR @ (67bpm ) Normal EKG per cardio Chest X-Ray Date: 02/25/23 Findings: + NAD Echocardiogram Date: 09/07/21 EF: 60-65% LV Function: normal RWMA: + none LA mildly dilated Mild to moderate MR
[2023-03-10] MEDS ORDERED: CeleBREX 200 MG CAP PO SCH (06:00)
[2023-03-10] MEDS ORDERED: LR 15ML/HR IV SCH (06:00)
[2023-03-10] MEDS ORDERED: ceFAZolin 2000MG 2,000 MG/15 ML SYR IV SCH (06:00)
[2023-03-10] MEDS ORDERED: GABAPENTIN 300 MG CAP PO SCH (06:00)
[2023-03-10] MEDS ORDERED: ACETAMINOPHEN 500 MG TAB PO SCH (06:00)
[2023-03-10] MEDS ORDERED: fentaNYL citrate PF 100 MCG/2 ML VIAL ONE (06:46)
[2023-03-10] MEDS ORDERED: MIDAZOLAM HCL 1 MG/ML 2ML VIAL ONE (06:46)
[2023-03-10] MEDS ORDERED: PROPOFOL IV EMULSION 10 MG/ML 20 ML VIAL IV ONE (06:46)
[2023-03-10] MEDS ORDERED: LIDOCAINE 2% MPF LOCAL 5 ML VIAL ONE (06:48)
[2023-03-10] MEDS ORDERED: ceFAZolin 330 MG/ML 1 GM VIAL ONE (07:07)
[2023-03-10] MEDS ORDERED: BUPIVACAINE/EPINEPHRINE 0.25% 1:200,000 30 ML VIAL ONE (07:07)
[2023-03-10] MEDS ORDERED: ONDANSETRON INJ 2 MG/ML 2 ML VIAL IV PRN ×2 (07:09→12:10)
[2023-03-10] MEDS ORDERED: HYDROmorphone INJ 1 MG/ML SYRINGE IV PRN ×2 (07:09→12:10)
[2023-03-10] MEDS ORDERED: ATROPINE SULFATE 0.1 MG/ML 10ML SYR IV PRN (07:09)
[2023-03-10] MEDS ORDERED: PROMETHAZINE HCL 6.25 MG in SODIUM CHLORIDE 0.9% 50 ML IV PRN (07:09)
[2023-03-10] MEDS ORDERED: ePHEDrine sulfate 50 MG/ML AMP IV PRN (07:09)
[2023-03-10] MEDS ORDERED: ROCURONIUM BROMIDE 10 MG/ML 5 ML VIAL IV ONE ×3 (07:25→08:40)
--- NOTE | 2023-03-10 07:38 | History & Physical Bridge Note ---
Date of Service March 10, 2023 History & Physical Bridge Note I have examined the patient, reviewed the History & Physical and in the interval since the performance of the History & Physical I have noted the following changes of clinical significance: no changes noted
--- NOTE | 2023-03-10 07:40 | History & Physical Report ---
Date of Service March 10, 2023 Assessment & Plan (1) Neurogenic claudication due to lumbar spinal stenosis: History of Present Illness Chief Complaint: Back and leg pain Primary Care Provider: Carly Salazar MD This is a 59-year-old female presents with chronic persistent back and leg pain after failing course of nonoperative care she is here for surgical invention. Allergies Allergy/AdvReac Type Severity Reaction Status Date / Time latex Allergy Mild RASH Verified 03/10/23 06:33 nickel Allergy Mild DERMATITIS Verified 03/10/23 06:33 WITH METAL (CHEAP JEWELRY) Quinolones Allergy Unknown UNKNOWN Verified 03/10/23 06:33 REACTION soy Allergy Unknown RASH/SKIN Verified 03/10/23 06:33 IRRITATION NSAIDS (Non-Steroidal AdvReac Intermediate DIARRHEA/IBS Verified 03/10/23 06:33 Anti-Inflamma (WITH PRISON USAGE) Home Medications Medication Instructions Recorded Confirmed Type ascorbic acid (vitamin C) 500 mg 500 mg PO BID 09/20/18 03/10/23 History tablet (Vitamin C) duloxetine 60 mg capsule,delayed 60 mg PO QAM 09/20/18 03/10/23 History release ferrous sulfate 325 mg (65 mg 325 mg PO QAM 09/20/18 03/10/23 History iron) tablet (iron) losartan 100 mg tablet 100 mg PO PM 09/20/18 03/10/23 History multivitamin 1 tab PO QAM 09/20/18 03/10/23 History atorvastatin 20 mg tablet 20 mg PO PM 07/14/19 03/10/23 History ropinirole 1 mg tablet 1 mg PO UD 04/23/21 03/10/23 History acetaminophen 500 mg tablet 1,000 mg PO Q8 PRN Pain 09/04/21 03/10/23 History (Tylenol Extra Strength) metoprolol tartrate 50 mg tablet 50 mg PO BID 09/04/21 03/10/23 History trazodone 50 mg tablet 50 mg PO HS 09/06/21 03/10/23 History amlodipine 5 mg tablet (Norvasc) 5 mg PO QAM #30 tabs 09/09/21 03/10/23 Rx ondansetron 4 mg disintegrating 4 mg PO Q6H PRN nausea and 12/17/21 03/10/23 Rx tablet vomiting #14 tabs calcium carb 333 mg-vit D3 133 1 tab PO QPM 12/19/21 03/10/23 History unit-mag ox 133 mg-zinc oxide 5 mg tab (Stan Mag Zinc Plus D3) potassium 95 mg tablet 95 mg PO QPM 12/19/21 03/10/23 History pantoprazole 40 mg tablet,delayed 40 mg PO BID #180 tabs 03/09/23 03/10/23 Rx release Past Med/Surg History Medical History Degenerative disc disease Depression Fibromyalgia Intermittent flares GERD (gastroesophageal reflux disease) CONTROLLED Hyperlipidemia Hypertension Irritable bowel syndrome Stable currently Obesity Restless leg syndrome Surgical History History of appendectomy History of bunionectomy BL History of carpal tunnel release BL History of cholecystectomy History of colonoscopy History of dilatation and curettage History of esophagogastroduodenoscopy (EGD) History of left hip replacement 09/28/18: SAB x1 at L4-L5 at [facility] History of tonsillectomy History of tooth extraction History of total abdominal hysterectomy and bilateral salpingo-oophorectomy Total/complete hysterectomy History of total knee replacement BL Family History Mother Family history of diabetes mellitus Grandfather Family history of diabetes mellitus Family/Other Family history of diabetes mellitus Social History Smoking Status: Former smoker Tobacco Type: Cigarettes Smoking End Date: 30 years ago; Second Hand Exposure: Yes (as a child); Do You Dip or Chew Tobacco: No; Tobacco Cessation Education Requested by Patient: No Hx Alcohol Use: Yes Hx Substance Use: No Preferred Language: Austrian Communication Ability: Effective Visual Impairment: No Limitations Hearing Ability: Normal Engineer Steam Required: No Beliefs That Will Affect Care: None marital status: Current Living Situation: Spouse Current Living Situation Comment: With christ chester Feels Safe at Home: Yes Safety Concerns: Feels Safe At This Time Assistive Devices: Glasses Assistive Devices Comment: glasses for reading Physical Exam Physical Exam: Patient is alert and oriented Heart regular rhythm Lungs clear Results & Data Results & Data Vital Signs (Past 12 Hours) Vital Signs Temp Pulse Resp BP Pulse Ox O2 Del Method 03/10/23 06:42 36.7 C 56 L 18 132/79 95 Room Air
--- NOTE | 2023-03-10 07:48 | History & Physical Bridge Note ---
Date of Service March 10, 2023 History & Physical Bridge Note I have examined the patient, reviewed the History & Physical and in the interval since the performance of the History & Physical I have noted the following changes of clinical significance: no changes noted Lumbar decompression and fusion L2-L5
[2023-03-10] MEDS ORDERED: ePHEDrine sulfate 50 MG/ML AMP ONE ×2 (08:22→09:16)
[2023-03-10] MEDS ORDERED: DEXAMETHASONE SOD INJ 4 MG/ML VIAL ONE (08:47)
[2023-03-10] MEDS ORDERED: VASOPRESSIN 20 UNIT/ML VIAL ONE (09:37)
[2023-03-10] MEDS ORDERED: HYDROmorphone INJ 2 MG/ML SYR/VIAL ONE (09:45)
[2023-03-10] MEDS ORDERED: FLOSEAL HEMOSTATIC MATRIX 10ML TOP ONE (09:45)
[2023-03-10] MEDS ORDERED: GLYCOPYRROLATE 0.2 MG/ML VIAL ONE (10:27)
[2023-03-10] MEDS ORDERED: NEOSTIGMINE METHYLSULFATE 1 MG/ML 10ML VIAL ONE (10:28)
--- NOTE | 2023-03-10 10:29 | Operative Report ---
Post Operative Report Pre & Post Diagnosis Operation Date: 03/10/23 07:45 Pre-Op Diagnosis: Neurogenic claudication due to lumbar spinal stenosis Post-Op Diagnosis: Neurogenic claudication due to lumbar spinal stenosis I identified the patient and participated in the time-out.: Yes Procedure Operation Date: 03/10/23 07:45 Actual Procedures #1 lumbar decompression bilateral medial facetectomies and foraminotomies L1-L2, L2-L3, L3-L4 and L4-5. #2 posterior spinal fusion L2-L5. #3 placement posterior segmental instrumentation L2-L5. #4 interbody fusion L2-L3, L3-L4 and L4-5 per #5 placement of Spira 13 x 26 mm at L2-L3, 14 x 26 mm at L3-L4 and 13 x 26 mm at L for L5. #6 placement locally harvested morselized autograft and posterior gutters. #7 placement of I factor combined with the test in the interbody space and posterior lateral gutters. Surgeon Ciro Montalvo, DO Circular Shear Operator Katlin Reese Estimated Blood Loss 700 Findings See Below The patient is 5 foot 4 weighing over 81 kg with a BMI in excess of 30. This combined with an EBL of greater than 700 cc created significant technical difficulty required deeper retractors and longer instruments. This had at least 50% increased operative time. Specimens None Indications This is a 59-year-old female who presents with above-mentioned diagnosis after failing course of nonoperative care is here for surgical invention. Description of Procedure Patient was met with identified informed consent obtained. Patient was then taken to the operative suite underwent ablation placed in a prone position on the [place] table top Jose frame. All bony prominences well-padded eyes inspected to ensure no external pressure placed upon the. This point the lumbar spine was prepped and draped in normal sterile fashion. Sharp dissection with the assistance of Bovie cautery performed down to and exposing the lamina and transverse processes of L2-L3-L4 and L5 bilaterally. From a caudal cephalad fashion complete laminectomy of L4 L3 L2 and partial laminectomy of L1 was performed including bilateral medial facetectomies and foraminotomies addressing severe spinal stenosis. Pedicle screws were then placed in L2 L3-L4-L5 bilaterally with assistance of fluoroscopy and the properly sized kwabena contoured and placed. By way of a trans foraminal approach on the right complete discectomy of L 4 L5 was performed endplates curetted to subcortically and bone and a 13 x 26 mm Spira cage filled I factor tapped in position. Then proceeded to L3-L4 and again by way of transforaminal approach on the right complete discectomy performed endplates curetted to subcortical bleeding bone and a 14 x 26 mm Spira cage with I factor tapped in position. Lastly I approached L2-L3 through a transfemoral approach and right complete discectomy performed endplates curetted to subcortical bleeding bone and a 13 x 26 mm Spira cage with I factor tapped in position. The rods were then locked in final position of the transverse processes of L2-L3 L4-5 burred to subcortical bleeding bone. I factor combined with V toss and locally harvested morselized autograft was placed in the posterior gutters. 15 round PEPE drain inserted. Incision closed with 1 Vicryl to fascia 2-0 Vicryl subcutaneously and 4 Monocryl for final skin closure. Steri-Strips and sterile dressing placed. Patient awakened taken to PACU in stable condition. Please note spinal cord monitoring was utilized at the procedure no changes noted. Lastly Katlin Reese is present at the entire surgeon while the patient positioning complex portions of the surgery and final skin closure. I attest to the content of the Intraoperative Record and any orders documented therein. Any exceptions are noted below.
[2023-03-10] MEDS: fentaNYL citrate PF 100 MCG/2 ML VIAL IV PRN ×4 (10:57→11:12)
--- NOTE | 2023-03-10 11:14 | Fluoroscopy Report ---
FL lumbar spine 2-3V CLINICAL HISTORY: L2-L5 DECOMP AND FUSION COMPARISON STUDY: CT abdomen pelvis 12/17/2021 FLUOROSCOPY TIME: 28.5 seconds FLUOROSCOPY IMAGES: 2 EXPOSURE DOSE: 24.71 mGy FINDINGS: Posterior interbody kwabena and screw fusion with discectomy hardware is noted at what appears to be the L2-L5 levels, exact numbering is not definitive based on magnification. The hardware appear s intact. No acute fracture identified. Ill-defined radiodense foci noted within the posterior operat deanna bed at the discectomy levels. IMPRESSION: Fluoroscopic assistance as above. ACT 112: Negative or not required by law. Electronically signed by: Henry Gates M.D. 03/10/2023 11:13 AM
[2023-03-10] MEDS ORDERED: MAGNESIUM HYDROXIDE SUSP 30 ML UDC PO PRN (12:10)
[2023-03-10] MEDS ORDERED: ALUMINUM/MAGNESIUM SUSP 30 ML UDC PO PRN (12:10)
[2023-03-10] MEDS ORDERED: NALOXONE HCL 0.4 MG/1 ML VIAL/CARP IV PRN (12:10)
[2023-03-10] MEDS ORDERED: hydrOXYzine HCl 25 MG TAB PO PRN (12:10)
[2023-03-10] MEDS ORDERED: traMADol HCL 50 MG TABLET PO PRN (12:10)
[2023-03-10] MEDS ORDERED: LORazepam 2 MG/1 ML VIAL IV PRN (12:10)
[2023-03-10] MEDS ORDERED: ACETAMINOPHEN 500 MG TAB PO PRN (12:10)
[2023-03-10] MEDS ORDERED: METOCLOPRAMIDE HCL INJ 5 MG/ML 2 ML VIAL IV PRN (12:10)
[2023-03-10] MEDS ORDERED: DO NOT ADMINISTER PNEUMOCOCCAL VACCINE PRN (12:10)
[2023-03-10] MEDS ORDERED: PROMETHAZINE HCL 12.5 MG in SODIUM CHLORIDE 0.9% 50 ML IV PRN (12:10)
[2023-03-10] MEDS ORDERED: diphenhydrAMINE Capsule 25 MG CAP PO PRN (12:10)
[2023-03-10] MEDS ORDERED: ONDANSETRON 4 MG OD TAB PO PRN (12:10)
[2023-03-10] MEDS ORDERED: ACETAMINOPHEN 1,000 MG/100 ML VIAL IV PRN (12:10)
[2023-03-10] MEDS ORDERED: LORazepam 0.5 MG TAB PO PRN (12:10)
[2023-03-10] MEDS ORDERED: bisacodyL 10 MG SUPP PR PRN (12:10)
[2023-03-10] MEDS ORDERED: HYDROmorphone INJ 0.5 MG/0.5 ML SYR IV PRN (12:10)
[2023-03-10] MEDS ORDERED: DO NOT ADMINISTER FLU VACCINE PRN (12:10)
[2023-03-10] MEDS ORDERED: SOD PHOSPHATE/SOD BIPHOSPHATE ENEMA 132 ML BTL PR PRN (12:10)
[2023-03-10] MEDS ORDERED: FAMOTIDINE 20 MG TAB PO PRN (12:10)
--- NOTE | 2023-03-10 13:21 | Consultation ---
Date of Consultation March 10, 2023 Assessment & Plan (1) Neurogenic claudication due to lumbar spinal stenosis: (2) Hypertension: (3) Hyperlipidemia: (4) Restless leg syndrome: (5) Depression: (6) PONV (postoperative nausea and vomiting): Plan 67 y/o POD #0 s/p D/F surgery under the care of Dr. Montalvo. EBL 700mL; will trend Hgb. Additional PMH HTN, HLD, and depression. Neurogenic Claudication d/t lumbar spinal stenosis: POD#0s/p decompression and fusion under the care of Dr. Montalvo. Per ortho for pain control, wound care, anticoagulation and activities. Monitor H&H, EBL 700mL. pre-op Hgb on 02/25: 12.7; will send H/H now. BP 93 systolic continue incentive spirometry PT/OT when appropriate PONV: two episodes with bile output Zofran IV x1 and Phenergan IV x1 with relief tolerating water; will advance diet as tolerated Continue IV fluids for now; reassess in AM HTN: Takes Norvasc, Losartan and Metoprolol; hold until reassess BP in AM HLD: Takes Atorvastatin; continue Depression: takes duloxetine; continue RLS: Takes Ropinerole; continue Disposition: PCP: Code Status: Full Code VTE Prophylaxis: per admitting team; TEDS and SCDs I spent a total of 44 minutes coordinating, documenting, and providing care for this patient excluding time spent in the performance of separately billed services. All of the aforementioned completed while collaborating with the assigned attending physician for a full treatment plan. Please see their addendum for further details. Supervising Physician Co-Signing Physician Notes Patient seen and examined independently. Discussed with above provider. 67 y/o POD #0 decompression and fusion of L2-L5 under the care of Dr. Montalvo. EBL 700mL Hypertensionhold off antihypertensive for now. Continue IV fluids Nausea and vomitingcontinue with Zofran/Phenergan. Advance diet as tolerated Resume other home medications History of Present Illness Requesting Physician: Dr. Montalvo Reason for Consultation: post operative medical consutlation Attending Physician: Ciro Montalvo, DO History of Present Illness Ms. Mi is a 67 year old female that presents to the [facility] to undergo an L2-L5 decompression and fusion surgery under the care of Dr. Montalvo after failed conservative management. Additional PMH includes: HTN, HLD, RLD, Fibromyalgia, depression and GERD. EBL 700mL and a little soft with her BP post op (93/76). She is getting fluids 150ml/hour. I just put in for an H/H to be checked. She sat up at the bedside and had an episode of bile vomiting (tolerated water to that point). Received a dose of Zofran at 3PM; just got some Phenergan when I was in the room. + numbness and tingling BL LE. No overt pain. Has PEPE drain x1 draining kimberly red blood. Pt sitting upright in her bed for the first time when I entered the room. Pt AAOx3. Reports bilateral numbness or tingling in lower extremities. No loss of bowel or bladder control. Denies visual changes, auditory changes, abdominal pain, chest pain or palpitations. Thank you kindly for consulting the [facility] Hospitalist Team. We are available 15/06 for any questions or additional needs. Allergies Allergy/AdvReac Type Severity Reaction Status Date / Time latex Allergy Mild RASH Verified 03/10/23 06:33 nickel Allergy Mild DERMATITIS Verified 03/10/23 06:33 WITH METAL (CHEAP JEWELRY) Quinolones Allergy Unknown UNKNOWN Verified 03/10/23 06:33 REACTION soy Allergy Unknown RASH/SKIN Verified 03/10/23 06:33 IRRITATION NSAIDS (Non-Steroidal AdvReac Intermediate DIARRHEA/IBS Verified 03/10/23 06:33 Anti-Inflamma (WITH STRINGED INSTRUMENT ASSEMBLER USAGE) Home Medications Medication Instructions Recorded Confirmed Type ascorbic acid (vitamin C) 500 mg 500 mg PO BID 09/20/18 03/10/23 History tablet (Vitamin C) duloxetine 60 mg capsule,delayed 60 mg PO QAM 09/20/18 03/10/23 History release ferrous sulfate 325 mg (65 mg 325 mg PO QAM 09/20/18 03/10/23 History iron) tablet (iron) losartan 100 mg tablet 100 mg PO PM 09/20/18 03/10/23 History multivitamin 1 tab PO QAM 09/20/18 03/10/23 History atorvastatin 20 mg tablet 20 mg PO PM 07/14/19 03/10/23 History ropinirole 1 mg tablet 1 mg PO UD 04/23/21 03/10/23 History acetaminophen 500 mg tablet 1,000 mg PO Q8 PRN Pain 09/04/21 03/10/23 History (Tylenol Extra Strength) metoprolol tartrate 50 mg tablet 50 mg PO BID 09/04/21 03/10/23 History trazodone 50 mg tablet 50 mg PO HS 09/06/21 03/10/23 History amlodipine 5 mg tablet (Norvasc) 5 mg PO QAM #30 tabs 09/09/21 03/10/23 Rx ondansetron 4 mg disintegrating 4 mg PO Q6H PRN nausea and 12/17/21 03/10/23 Rx tablet vomiting #14 tabs calcium carb 333 mg-vit D3 133 1 tab PO QPM 12/19/21 03/10/23 History unit-mag ox 133 mg-zinc oxide 5 mg tab (Stan Mag Zinc Plus D3) potassium 95 mg tablet 95 mg PO QPM 12/19/21 03/10/23 History pantoprazole 40 mg tablet,delayed 40 mg PO BID #180 tabs 03/09/23 03/10/23 Rx release oxycodone 5 mg tablet 5 mg PO DAILY PRN pain #30 tabs 03/10/23 03/10/23 Rx tramadol 50 mg tablet 50 mg PO Q6H PRN pain, moderate 03/10/23 03/10/23 Rx #30 tabs Patient History Medical History (Updated 03/10/23 @ 17:30 by MONIK Munoz) Degenerative disc disease Depression Fibromyalgia Intermittent flares GERD (gastroesophageal reflux disease) CONTROLLED Hyperlipidemia Hypertension Irritable bowel syndrome Stable currently Obesity PONV (postoperative nausea and vomiting) Restless leg syndrome Surgical History History of appendectomy History of bunionectomy BL History of carpal tunnel release BL History of cholecystectomy History of colonoscopy History of dilatation and curettage History of esophagogastroduodenoscopy (EGD) History of left hip replacement 09/28/18: SAB x1 at L4-L5 at [facility] History of tonsillectomy History of tooth extraction History of total abdominal hysterectomy and bilateral salpingo-oophorectomy Total/complete hysterectomy History of total knee replacement BL Family History Mother Family history of diabetes mellitus Grandfather Family history of diabetes mellitus Family/Other Family history of diabetes mellitus Social History Smoking Status: Former smoker Tobacco Type: Cigarettes Smoking End Date: 30 years ago; Second Hand Exposure: Yes (as a child); Do You Dip or Chew Tobacco: No; Tobacco Cessation Education Requested by Patient: No Hx Alcohol Use: Yes Hx Substance Use: No Preferred Language: Peruvian Communication Ability: Effective Visual Impairment: No Limitations Hearing Ability: Normal Rn Social Services Required: No Beliefs That Will Affect Care: None marital status: Current Living Situation: Spouse Current Living Situation Comment: With christ mi Feels Safe at Home: Yes Safety Concerns: Feels Safe At This Time Assistive Devices: Glasses Assistive Devices Comment: glasses for reading Review of Systems Review of Systems: Neuro: (-) Falls, trauma, slurred speech HEENT: (-) REAL, dizziness, dysphagia, visual or auditory changes CV: (-) CP, palpitations, swelling Resp: (-) SOB GI: (-) appetite changes, (+) N/V (-) D, bowel changes : (-) urinary changes Skin: (-) rashes Psych: (-) anxiety, depression Physical Exam Physical Exam: Neuro: AAOx4, PERRLA, no aphagia, memory changes, CNII-XII grossly intact HEENT: head normocephalic, moist mucus membranes CV: S1/S2, (-) M/G/R, (-) edema, cap refill < 3 seconds. PEPE drain x1 Resp: Lungs CTA in all [place]. On RA GI: Abdomen S/NT/ND, Ax4 bowel sounds, (-) CVA tenderness Musculoskeletal: 5/5 B/L UE strength, 5/5 B/L LE strength. No gait disturbance Skin: (-) rashes , (-) erythema. Vertical lower back incision with dressing C/D/I Psych: euthymic mood Results & Data Vital Signs (Past 12 Hours) Vital Signs Temp Pulse Pulse Resp BP Pulse Ox O2 Del Method 03/10/23 12:20 63 15 99/57 L 94 Nasal Cannula 03/10/23 12:05 61 13 96/59 L 95 Nasal Cannula 03/10/23 11:50 61 17 101/59 L 95 Nasal Cannula 03/10/23 11:15 59 L 10 L 109/60 95 Oxymask 03/10/23 11:05 62 15 105/61 97 Oxymask 03/10/23 11:35 36.5 C 71 14 104/64 95 Nasal Cannula 03/10/23 11:25 59 L 16 107/59 L 96 Oxymask 03/10/23 10:55 57 L 16 112/63 98 Oxymask 03/10/23 10:49 37.0 C 58 L 16 107/61 99 Oxymask 03/10/23 06:42 36.7 C 56 L 18 132/79 95 Room Air O2 Flow Rate 03/10/23 12:20 2 03/10/23 12:05 2 03/10/23 11:50 2 03/10/23 11:15 3 03/10/23 11:05 3 03/10/23 11:35 2 03/10/23 11:25 3 03/10/23 10:55 4 03/10/23 10:49 6 03/10/23 06:42 Diagnostic Findings Lumbar Spine X-Ray 03/10/23 00:00 FL lumbar spine 2-3V CLINICAL HISTORY: L2-L5 DECOMP AND FUSION COMPARISON STUDY: CT abdomen pelvis 12/17/2021 FLUOROSCOPY TIME: 28.5 seconds FLUOROSCOPY IMAGES: 2 EXPOSURE DOSE: 24.71 mGy FINDINGS: Posterior interbody kwabena and screw fusion with discectomy hardware is noted at what appears to be the L2-L5 levels, exact numbering is not definitive based on magnification. The hardware appears intact. No acute fracture identified. Ill-defined radiodense foci noted within the posterior operative bed at the discectomy levels. IMPRESSION: Fluoroscopic assistance as above. ACT 112: Negative or not required by law. Electronically signed by: Henry Gates M.D. 03/10/2023 11:13 AM (2) Hypertension Hypertension type: unspecified Qualified Code(s): I10 - Essential (primary) hypertension
[2023-03-10] MEDS: LACTATED RINGER'S 1,000 ML IV SCH ×2 (13:51→20:41)
[2023-03-10] MEDS: oxyCODONE HCL IR 5 MG TAB (IMMEDIATE RELEASE) PO PRN ×2 (14:39→20:41)
--- NOTE | 2023-03-10 14:44 | Anesthesiology Progress Note ---
Date of Service March 10, 2023 Anesthesia Post Procedure Vital Signs Vital Signs: Temp Pulse Pulse Resp BP Pulse Ox O2 Del Method 03/10/23 13:05 Nasal Cannula 03/10/23 12:20 63 15 99/57 L 94 Nasal Cannula 03/10/23 12:05 61 13 96/59 L 95 Nasal Cannula 03/10/23 11:50 61 17 101/59 L 95 Nasal Cannula 03/10/23 11:15 59 L 10 L 109/60 95 Oxymask 03/10/23 11:05 62 15 105/61 97 Oxymask 03/10/23 11:35 36.5 C 71 14 104/64 95 Nasal Cannula 03/10/23 11:25 59 L 16 107/59 L 96 Oxymask 03/10/23 10:55 57 L 16 112/63 98 Oxymask 03/10/23 10:49 37.0 C 58 L 16 107/61 99 Oxymask 03/10/23 06:42 36.7 C 56 L 18 132/79 95 Room Air O2 Flow Rate 03/10/23 13:05 2 03/10/23 12:20 2 03/10/23 12:05 2 03/10/23 11:50 2 03/10/23 11:15 3 03/10/23 11:05 3 03/10/23 11:35 2 03/10/23 11:25 3 03/10/23 10:55 4 03/10/23 10:49 6 03/10/23 06:42 Pain Intensity Back: Pain Intensity: 1 Transfer of Care Handoff Completed per policy Notes Mental Status: alert / awake / arousable and participated in evaluation Patient Amnestic to Procedure: Yes Nausea / Vomiting: adequately controlled Pain: adequately controlled Airway Patency, RR, SpO2: stable & adequate BP & HR: stable & adequate Hydration State: stable & adequate Anesthetic Complications: no major complications apparent and Pt Satisfied with anesthetic care
[2023-03-10] MEDS: ceFAZolin 2000MG 2,000 MG/15 ML SYR IV SCH (16:40)
[2023-03-10] MEDS: rOPINIRole HCL 1 MG TABLET PO SCH ×2 (16:40→20:42)
[2023-03-10 17:24] LABS: Hemoglobin 11.3 g/dl (12.0-16.0)
[2023-03-10] MEDS: CALCIUM 600MG + VIT D 400 IU TAB PO SCH (20:42)
[2023-03-10] MEDS: ATORVASTATIN 20 MG TAB PO SCH (20:43)
[2023-03-10] MEDS: PANTOprazole 40 MG TAB PO SCH (20:43)
[2023-03-10] MEDS: ASCORBIC ACID 500 MG TAB PO SCH (20:44)
[2023-03-10] MEDS: DOCUSATE SODIUM/SENNA 50/8.6MG TAB PO SCH (20:47)
[2023-03-10] MEDS: traZODone HCL 50 MG TAB PO SCH (20:48)
[2023-03-10] MEDS ORDERED: NON-FORMULARY MEDICATION (Potassium 95 mg Tablet) PO SCH (21:00)
[2023-03-11] MEDS: ceFAZolin 2000MG 2,000 MG/15 ML SYR IV SCH (00:18)
[2023-03-11] MEDS: oxyCODONE HCL IR 5 MG TAB (IMMEDIATE RELEASE) PO PRN ×4 (03:51→16:54)
[2023-03-11] MEDS: LACTATED RINGER'S 1,000 ML IV SCH (04:15)
[2023-03-11] MEDS: POLYETHYLENE (MIRALAX) 17 GM PACK PO SCH ×4 (06:17→22:05)
[2023-03-11] MEDS: PANTOprazole 40 MG TAB PO SCH ×2 (08:29→21:02)
[2023-03-11] MEDS: FERROUS SULFATE 325 MG TAB PO SCH (08:29)
[2023-03-11] MEDS: ASCORBIC ACID 500 MG TAB PO SCH ×2 (08:29→21:01)
[2023-03-11] MEDS: DULoxetine HCL 60 MG CAP PO SCH (08:31)
[2023-03-11] MEDS: dexAMETHasone 6 MG in SYRINGE 0 ML IV SCH (08:34)
--- NOTE | 2023-03-11 08:39 | Orthopedic Progress Note ---
Date of Service March 11, 2023 Assessment & Plan (1) Neurogenic claudication due to lumbar spinal stenosis: Plan: Ashley is postop day 1 status post posterior spinal fusion L2-5. We will start physical therapy today. I will check an H&H on her. Maintain PEPE drain. DVT prophylaxis is in the form of teds and SCDs. Continue with pain control. Anticipate discharge home later on this week. Admission and Anticipated Discharge Date Admission Date: March 10, 2023 Subjective Ashley is postoperative day 1 status post posterior spinal fusion L2-5. She had an uneventful evening. She is doing well. Pain is controlled. PEPE drain output last shift was 130 cc. Wu is intact and draining. Review of Systems Review of Systems: All systems reviewed & are unremarkable except as noted in HPI & below Physical Exam Physical Exam: She is sitting up in a chair in no acute distress Alert and oriented x3 Lumbar dressing is clean dry intact with functioning PEPE drain Calf soft nontender bilateral lower extremities Strength is intact bilateral lower extremities Results & Data Vital Signs (Past 12 Hours) Vital Signs Temp Pulse Pulse Resp BP Pulse Ox O2 Del Method 03/11/23 07:29 36.6 C 89 16 111/72 94 Room Air 03/11/23 03:04 36.7 C 79 16 112/65 96 Room Air 03/10/23 22:23 36.8 C 86 18 114/67 96 Nasal Cannula O2 Flow Rate 03/11/23 07:29 03/11/23 03:04 03/10/23 22:23 2
[2023-03-11 09:20] LABS: Basophils # (auto) 0.03 K/uL (0-0.2); Basophils % (auto) 0.2 %; Eosinophils # (auto) 0.01 K/uL (0-0.50); Eosinophils % (auto) 0.1 %; Immature Granulocytes # (auto) 0.38 K/uL (0.01-0.20); Immature Granulocytes % (auto) 2.1 %; Lymphocytes # (auto) 1.78 K/uL (1.2-3.4); Lymphocytes % (auto) 9.8 %; Mean Corpuscular Hemoglobin 30.4 pg (25.0-34.0); Mean Corpuscular Hgb Conc 34.5 g/dL (32.0-36.0); Mean Corpuscular Volume 88.1 fL (80.0-100.0); Mean Platelet Volume 10.6 fL (9.4-12.4); Monocytes % (auto) 6.1 %; Neutrophils # (auto) 14.79 K/uL (1.40-6.50); Neutrophils % (auto) 81.7 %; Platelet Count 210 K/uL (130-400); RDW Coefficient of Variation 13.4 % (11.5-14.5); RDW Standard Deviation 43.4 fL (36.4-46.3); Red Blood Count 3.29 M/uL (4.20-5.40); White Blood Count 18.09 K/ul (4.8-10.8)
[2023-03-11 09:38] LABS: BUN Creatinine Ratio 22.7 (10-20); Calcium 9.4 mg/dl (8.6-10.3); Est GFR (African American) 94.9 ml/min; Est GFR (Non-African American) 81.9 ml/min; Potassium 4.4 mmol/L (3.5-5.1)
--- NOTE | 2023-03-11 14:31 | Hospitalist Progress Note ---
Date of Service March 11, 2023 Assessment & Plan (1) Neurogenic claudication due to lumbar spinal stenosis: (2) Hypertension: (3) Hyperlipidemia: (4) Restless leg syndrome: (5) Depression: (6) PONV (postoperative nausea and vomiting): Plan 67 y/o POD #0 s/p D/F surgery under the care of Dr. Montalvo. EBL 700mL; will trend Hgb. Additional PMH HTN, HLD, and depression. Neurogenic Claudication d/t lumbar spinal stenosis: POD#0s/p decompression and fusion under the care of Dr. Montalvo. Per ortho for pain control, wound care, anticoagulation and activities. Monitor H&H, EBL 700mL. hgb 10 today (11.3 yesterday). Continue to trend CBC Continue incentive spirometry PT/OT when appropriate PONV: --> resolved Two episodes with bile output Zofran IV x1 and Phenergan IV x1 with relief Tolerating regular diet without issue HTN: Resumed Norvasc and Metoprolol, planning to resume Losartan tomorrow HLD: Takes Atorvastatin; continue Depression: takes duloxetine; continue RLS: Takes Ropinerole; continue Disposition: PCP: Code Status: Full Code VTE Prophylaxis: per primary service I spent a total of 35 minutes coordinating, documenting, and providing care for this patient excluding time spent in the performance of separately billed services. Admission and Anticipated Discharge Date Admission Date: March 10, 2023 Supervising Physician Co-Signing Physician Notes Attending Addendum: care coordinated with MARTELL Galindo please refer to her notes for full details, I agree with her notes patient seen and examined, records reviewed by myself as well diagnoses and plan of care as per MARTELL Wu MD Subjective Seen and examined in 314. Feeling well today, with minimal surgical site discomfort. Denies any numbness or pain in bilateral lower extremities. Up and able to participate with therapy without issue. Still with Wu catheter in place. Tolerating diet without nausea or vomiting. Denies any fever, chills, lightheadedness, chest pain, shortness of breath. Passing flatus. Review of Systems Review of Systems: At least ten systems reviewed and negative except as noted in the HPI. Physical Exam Physical Exam: Gen: WD/WN, NAD, lying in bed, A&Ox3 HEENT: Normocephalic, atraumatic, conjunctivae moist, sclerae anicteric, mucous membranes moist Lung: Clear to Auscultation bilaterally, no wheezes/rales/rhonchi Heart: Regular rate, regular rhythm, no murmurs, rubs, or gallops Abdomen: Soft, NT, ND +BS x 4 Extremities: + spinal dressing c/d/i. PEPE drain visualized, teds in place, no edema Skin: Warm, no rash Results & Data Results & Data Vital Signs (Past 12 Hours) Vital Signs Temp Pulse Pulse Resp BP Pulse Ox O2 Del Method 03/11/23 13:54 36.6 C 97 H 17 133/79 96 Room Air 03/11/23 11:37 36.8 C 102 H 16 109/60 95 Room Air 03/11/23 07:29 36.6 C 89 16 111/72 94 Room Air 03/11/23 03:04 36.7 C 79 16 112/65 96 Room Air Laboratory Results Short CBC 03/10/23 03/11/23 Range/Units 17:08 08:44 WBC 18.09 H (4.8-10.8) K/ul Hgb 11.3 L 10.0 L (12.0-16.0) g/dl Hct 33.0 L 29.0 L (37.0-47.0) % Plt Count 210 (130-400) K/uL BMP 03/11/23 08:44 Sodium 137 Potassium 4.4 Chloride 102 Carbon Dioxide 29 BUN 17 Creatinine 0.75 Glucose 108 H Calcium 9.4 Diagnostic Findings Lumbar Spine X-Ray 03/10/23 00:00 FL lumbar spine 2-3V CLINICAL HISTORY: L2-L5 DECOMP AND FUSION COMPARISON STUDY: CT abdomen pelvis 12/17/2021 FLUOROSCOPY TIME: 28.5 seconds FLUOROSCOPY IMAGES: 2 EXPOSURE DOSE: 24.71 mGy FINDINGS: Posterior interbody kwabena and screw fusion with discectomy hardware is noted at what appears to be the L2-L5 levels, exact numbering is not definitive based on magnification. The hardware appears intact. No acute fracture identified. Ill-defined radiodense foci noted within the posterior operative bed at the discectomy levels. IMPRESSION: Fluoroscopic assistance as above. ACT 112: Negative or not required by law. Electronically signed by: Henry Gates M.D. 03/10/2023 11:13 AM (2) Hypertension Hypertension type: unspecified Qualified Code(s): I10 - Essential (primary) hypertension
[2023-03-11] MEDS: rOPINIRole HCL 1 MG TABLET PO SCH ×2 (16:56→21:02)
[2023-03-11] MEDS: ATORVASTATIN 20 MG TAB PO SCH (21:01)
[2023-03-11] MEDS: CALCIUM 600MG + VIT D 400 IU TAB PO SCH (21:02)
[2023-03-11] MEDS: METOPROLOL TARTRATE 50 MG TAB PO SCH (22:04)
[2023-03-11] MEDS: traZODone HCL 50 MG TAB PO SCH (22:04)
[2023-03-11] MEDS: LOSARTAN POTASSIUM 50 MG TAB PO SCH (22:04)
[2023-03-11] MEDS: DOCUSATE SODIUM/SENNA 50/8.6MG TAB PO SCH (22:04)
[2023-03-12] MEDS: POLYETHYLENE (MIRALAX) 17 GM PACK PO SCH ×3 (05:31→17:04)
[2023-03-12] MEDS: oxyCODONE HCL IR 5 MG TAB (IMMEDIATE RELEASE) PO PRN ×4 (05:34→23:10)
[2023-03-12 07:40] LABS: Hematocrit (blood only) 23.7 % (37.0-47.0); Hemoglobin 8.2 g/dl (12.0-16.0); Mean Corpuscular Hemoglobin 30.6 pg (25.0-34.0); Mean Corpuscular Hgb Conc 34.6 g/dL (32.0-36.0); Mean Corpuscular Volume 88.4 fL (80.0-100.0); Mean Platelet Volume 10.4 fL (9.4-12.4); Platelet Count 167 K/uL (130-400); RDW Coefficient of Variation 13.3 % (11.5-14.5); RDW Standard Deviation 42.9 fL (36.4-46.3); Red Blood Count 2.68 M/uL (4.20-5.40); White Blood Count 12.97 K/ul (4.8-10.8)
[2023-03-12 08:09] LABS: Calcium 9.2 mg/dl (8.6-10.3)
[2023-03-12] MEDS: ASCORBIC ACID 500 MG TAB PO SCH ×2 (08:14→21:16)
[2023-03-12] MEDS: PANTOprazole 40 MG TAB PO SCH ×2 (08:14→21:16)
[2023-03-12 08:15] LABS: BUN Creatinine Ratio 28.6 (10-20); Creatinine Clr Calc Pharmacy 79.2 ml/min; Est GFR (African American) 103.2 ml/min
[2023-03-12] MEDS: DULoxetine HCL 60 MG CAP PO SCH (08:15)
[2023-03-12] MEDS: METOPROLOL TARTRATE 50 MG TAB PO SCH ×2 (08:15→21:16)
[2023-03-12] MEDS: amLODIPine BESYLATE 5 MG TAB PO SCH (08:16)
[2023-03-12] MEDS: FERROUS SULFATE 325 MG TAB PO SCH (08:16)
[2023-03-12] MEDS: dexAMETHasone 6 MG in SYRINGE 0 ML IV SCH (08:17)
--- NOTE | 2023-03-12 08:43 | Orthopedic Progress Note ---
Date of Service March 12, 2023 Assessment & Plan (1) Neurogenic claudication due to lumbar spinal stenosis: Plan: This time we will continue physical therapy monitor her PEPE output anticipate discharge home tomorrow. Admission and Anticipated Discharge Date Admission Date: March 10, 2023 Subjective Back pain controlled leg pain improved Physical Exam Physical Exam: Patient is in the chair at the bedside. She is comfortable. Suspected testing. Results & Data Vital Signs (Past 12 Hours) Vital Signs Temp Pulse Pulse Resp BP Pulse Ox O2 Del Method 03/12/23 08:12 69 111/60 03/12/23 07:36 36.7 C 75 16 109/67 95 Room Air 03/11/23 20:50 36.8 C 97 H 16 127/73 95 Room Air
--- NOTE | 2023-03-12 14:01 | Hospitalist Progress Note ---
Date of Service March 12, 2023 Assessment & Plan (1) Neurogenic claudication due to lumbar spinal stenosis: (2) Hypertension: (3) Hyperlipidemia: (4) Restless leg syndrome: (5) Depression: (6) PONV (postoperative nausea and vomiting): Plan 67 y/o POD #0 s/p D/F surgery under the care of Dr. Montalvo. EBL 700mL; will trend Hgb. Additional PMH HTN, HLD, and depression. Neurogenic Claudication d/t lumbar spinal stenosis: POD#0s/p decompression and fusion under the care of Dr. Montalvo. Per ortho for pain control, wound care, anticoagulation and activities. Monitor H&H, EBL 700mL. hgb 8.2 today (10 yesterday), asymptomatic. Continue to trend CBC Continue incentive spirometry PT/OT PONV: --> resolved Two episodes with bile output Zofran IV x1 and Phenergan IV x1 with relief Tolerating regular diet without issue HTN: Resumed Norvasc and Metoprolol with hold parameters. Instruction to check BP with home cuff and resume Losartan once BP back to normal range HLD: Takes Atorvastatin; continue Depression: takes duloxetine; continue RLS: Takes Ropinerole; continue Disposition: Code Status: Full Code VTE Prophylaxis: per primary service I spent a total of 35 minutes coordinating, documenting, and providing care for this patient excluding time spent in the performance of separately billed services. Admission and Anticipated Discharge Date Admission Date: March 10, 2023 Supervising Physician Co-Signing Physician Notes Attending Addendum: care coordinated with MARTELL Galindo please refer to her notes for full details, I agree with her notes patient seen and examined, records reviewed by myself as well monitor BP, resume Amlodipine tomorrow if systolic bp > 130 hold losartan for now repeat CBC tomorrow diagnoses and plan of care as per MARTELL Glaindo's notes Rigoberto Wu MD Subjective Seen and examined in 314. Feeling well today, denies any discomfort. Denies any numbness or pain in bilateral lower extremities. Up and able to participate with therapy without issue. Tolerating diet without nausea or vomiting. Denies any fever, chills, lightheadedness, chest pain, shortness of breath. Passing flatus but no post-op bowel movement yet. Review of Systems Review of Systems: At least ten systems reviewed and negative except as noted in the HPI. Physical Exam Physical Exam: Gen: WD/WN, NAD, sitting in bedside chair, A&Ox3 HEENT: Normocephalic, atraumatic, conjunctivae moist, sclerae anicteric, mucous membranes moist Lung: Clear to Auscultation bilaterally, no wheezes/rales/rhonchi Heart: Regular rate, regular rhythm, no murmurs, rubs, or gallops Abdomen: Soft, NT, ND +BS x 4 Extremities: + spinal dressing c/d/i. PEPE drain visualized, no edema Skin: Warm, no rash Results & Data Results & Data Vital Signs (Past 12 Hours) Vital Signs Temp Pulse Pulse Resp BP Pulse Ox O2 Del Method 03/12/23 08:12 69 111/60 03/12/23 07:36 36.7 C 75 16 109/67 95 Room Air Laboratory Results Short CBC 03/12/23 Range/Units 07:15 WBC 12.97 H (4.8-10.8) K/ul Hgb 8.2 L (12.0-16.0) g/dl Hct 23.7 L (37.0-47.0) % Plt Count 167 (130-400) K/uL BMP 03/12/23 07:15 Sodium 141 Potassium 4.0 Chloride 104 Carbon Dioxide 32 BUN 20 Creatinine 0.70 Glucose 102 H Calcium 9.2 Diagnostic Findings Lumbar Spine X-Ray 03/10/23 00:00 FL lumbar spine 2-3V CLINICAL HISTORY: L2-L5 DECOMP AND FUSION COMPARISON STUDY: CT abdomen pelvis 12/17/2021 FLUOROSCOPY TIME: 28.5 seconds FLUOROSCOPY IMAGES: 2 EXPOSURE DOSE: 24.71 mGy FINDINGS: Posterior interbody kwabena and screw fusion with discectomy hardware is noted at what appears to be the L2-L5 levels, exact numbering is not definitive based on magnification. The hardware appears intact. No acute fracture identified. Ill-defined radiodense foci noted within the posterior operative bed at the discectomy levels. IMPRESSION: Fluoroscopic assistance as above. ACT 112: Negative or not required by law. Electronically signed by: Henry Gates M.D. 03/10/2023 11:13 AM (2) Hypertension Hypertension type: unspecified Qualified Code(s): I10 - Essential (primary) hypertension
[2023-03-12] MEDS: rOPINIRole HCL 1 MG TABLET PO SCH ×2 (17:03→21:16)
[2023-03-12] MEDS: ATORVASTATIN 20 MG TAB PO SCH (21:16)
[2023-03-12] MEDS: LOSARTAN POTASSIUM 50 MG TAB PO SCH (21:16)
[2023-03-12] MEDS: CALCIUM 600MG + VIT D 400 IU TAB PO SCH (21:16)
[2023-03-12] MEDS: traZODone HCL 50 MG TAB PO SCH (21:22)
[2023-03-12] MEDS: DOCUSATE SODIUM/SENNA 50/8.6MG TAB PO SCH (21:22)
[2023-03-13] MEDS: POLYETHYLENE (MIRALAX) 17 GM PACK PO SCH ×3 (05:32→12:18)
[2023-03-13] MEDS: PANTOprazole 40 MG TAB PO SCH (08:18)
[2023-03-13] MEDS: METOPROLOL TARTRATE 50 MG TAB PO SCH (08:18)
[2023-03-13] MEDS: amLODIPine BESYLATE 5 MG TAB PO SCH (08:19)
[2023-03-13] MEDS: ASCORBIC ACID 500 MG TAB PO SCH (08:19)
[2023-03-13] MEDS: FERROUS SULFATE 325 MG TAB PO SCH (08:19)
[2023-03-13] MEDS: DULoxetine HCL 60 MG CAP PO SCH (08:20)
[2023-03-13] MEDS: dexAMETHasone 6 MG in SYRINGE 0 ML IV SCH (08:21)
--- NOTE | 2023-03-13 10:20 | Discharge Summary ---
Date of Service March 13, 2023 Admission HPI Per Admitting Provider This is a 59-year-old female presents with chronic persistent back and leg pain after failing course of nonoperative care she is here for surgical invention. Principal Diagnosis Lumbar spinal stenosis with neurogenic claudication Discharge Data Allergies Allergy/AdvReac Type Severity Reaction Status Date / Time latex Allergy Mild RASH Verified 03/10/23 06:33 nickel Allergy Mild DERMATITIS Verified 03/10/23 06:33 WITH METAL (CHEAP JEWELRY) Quinolones Allergy Unknown UNKNOWN Verified 03/10/23 06:33 REACTION soy Allergy Unknown RASH/SKIN Verified 03/10/23 06:33 IRRITATION NSAIDS (Non-Steroidal AdvReac Intermediate DIARRHEA/IBS Verified 03/10/23 06:33 Anti-Inflamma (WITH VACCINE MANAGER USAGE) Consultations 03/10/23 12:10 Consult Hospitalist Routine Procedures Performed Operation Date: 03/10/23 07:45 Actual Procedures p L2-L5 Decompression and Fusion, Spinal Cord Monitoring(Not Applicable) - Ciro Montalvo DO Ordered Studies 03/10/23 FL lumbar spine 2-3V Routine Hospital Course (1) Neurogenic claudication due to lumbar spinal stenosis: Patient went multilevel lumbar decompression fusion tolerated as well as taken to orthopedic for postoperative post. Postop day 1 she was up and ambulating progress postop day #2 and 3. PEPE drain decreasing probably. Excellent strength testing. Safely discharged home. Discharge orders instructions found in chart for further review. Total Time Total Time Spent Total Time Spent (In Minutes): 20 minutes Discharge Plan Discharge Items Patient Disposition: Home - Self-Care Reason For Visit: Spinal Stenosis, Lumbar Region without Neurogenic Discharge Diagnosis: Lumbar spinal stenosis with neurogenic claudication Activity: As commented below Non-emergency contact: Primary Care Provider Call non-emergency contact if: you have any medication questions Follow-up/Referrals: Carly Salazar MD [Primary Care Provider] - Diet: Regular Addtl Attending Provider Instructions: ACTIVITY RECOMMENDATIONS: SELF CARE INSTRUCTIONS AFTER THORACIC/LUMBAR FUSIONS 1. You may walk to your tolerance. It is good exercise for your legs and back. Expect some back and intermittent leg aches and pains. 2. You may perform "counter-top" level activities (make a sandwich, luis with a project, etc.). 3. No bending or lifting of more than 10 pounds or back twisting of any nature (roll like a log when turning in bed). 4. You may ride in a car for 20-30 minutes at a time. No driving until after your first visit with your doctor. 5. Frequent changes of position and restricting sitting to 30 minutes at a time will help limit the amount of back spasms and stiffness you may experience. 6. You may discontinue the use of ambulatory aids (cane, crutches, etc.) once your strength and confidence allow. 7. You may counterintelligence agent the shower and let water strike your incision when you arrive home at least once daily. Do not take a tub bath, sit in a hot tub or go into a swimming pool until after your first recheck in the office. SPECIAL CARE INSTRUCTIONS: VERY IMPORTANT TO READ AND REVIEW A. Your surgical incision has been closed with a cosmetic suture under the skin that will dissolve in about 6 weeks. In 14 days, you can use a pair of clean scissors and cut the suture that is left outside of the skin at the ends of your incision. 1. The small skin tapes can be removed 7 days after surgery if they have not fallen off by that point. 2. You may keep the wound open to air as much as possible to promote healing after post-op day number 5 unless told otherwise by your doctor. 3. If you think the wound looks like it is becoming infected (redness or worsening drainage) and/or you are experiencing fever, chill or worsening back pain and muscle spasms, contact the office so that we may evaluate you as soon as possible. B. Complications are uncommon, but please contact us if you have any signs or symptoms of: 1. wound infection (fever higher than 102.5 degrees F, redness, separation of wound, drainage, or increasing pain from the incision) 2. blood clots in legs (pain, swelling, redness and warmth in legs) 3. urinary tract infection (fever higher than 102.5 degrees F, burning upon urination or increased frequency of urination) 4. nerve problems (inability to walk on your toes or heels, numbness, loss of bowel or bladder control) 5. any other symptoms that concern you C. Please call the office at if you have any concerns or questions about your operation or recovery. D. No smoking! Smoking drastically decreases the chance of a solid fusion. E. Do not take any anti-inflammatory medications (Indocin, Advil, Motrin, Aspirin, Naprosyn, etc.) as these may inhibit the chance of a solid fusion. Tylenol is okay to take for pain. MANAGING PAIN AFTER SPINAL SURGERY 1. Narcotic medication is intended for short-term use and will be provided for surgical pain. Surgical pain usually lasts for a period of 4-6 weeks. Narcotic medication includes Percocet, Vicodin, Darvocet, Tylenol #3 or Lortab. 2. Longer-term pain is more appropriately treated with non-narcotic medication such as Tylenol ES. 3. Muscle spasm is not appropriately treated with narcotics. Muscle relaxers such as Soma, Flexeril or Skelaxin can be used along with Tylenol ES. 4. Remember that we all live with some "aches and pains". This is not unusual or uncommon after an injury or as we get older. a. Back pain is expected and may include muscle spasms for 4 to 6 weeks after surgery. The pain should gradually improve. If the pain worsens for no apparent reason, please contact the office. b. Intermittent leg pain may also be experienced and should not be concerned about unless it worsens for no apparent reason. If so, please contact the office. 5. We will provide appropriate medication within the normal guidelines of their prescribed use. We will also be very cautious and aware of potential abuse and extended duration of patients' medication needs. a. Pain medications are for your comfort and to assist with sleep and rest so that the tissue can heal. They are not provided in order to return to normal activity and should not be used through the day. To do so or worsening pain at night can result from ongoing tissue damage and development of tolerance to the prescribed medicine. 6. Please allow 2-3 days to process refills. Prescriptions will not be mailed but must be picked up at the office. FOLLOW UP VISIT: Keep your scheduled follow-up appointment. Any questions, please call the office at . Pending Studies at Discharge: No Stand-Alone Forms: [employer] [place], Smoking Cessation Medications and DC Order Prescriptions: New oxycodone 5 mg tablet 5 mg PO DAILY PRN (Reason: pain) Qty: 30 0RF tramadol 50 mg tablet 50 mg PO Q6H PRN (Reason: pain, moderate) Qty: 30 0RF Continued pantoprazole 40 mg tablet,delayed release (DR/EC) 40 mg PO BID Qty: 180 3RF multivitamin Tablet 1 tab PO QAM ascorbic acid (vitamin C) [Vitamin C] 500 mg Tablet 500 mg PO BID ferrous sulfate [iron] 325 mg (65 mg iron) Tablet 325 mg PO QAM losartan 100 mg Tablet 100 mg PO PM duloxetine 60 mg Capsule,Delayed Release(Dr/Ec) 60 mg PO QAM atorvastatin 20 mg Tablet 20 mg PO PM ropinirole 1 mg tablet 1 mg PO UD Rx Instructions: 1mg po at dinner, 1mg po 60-90 min prior to bedtime ( HS ) metoprolol tartrate 50 mg tablet 50 mg PO BID acetaminophen [Tylenol Extra Strength] 500 mg tablet 1,000 mg PO Q8 PRN (Reason: Pain) trazodone 50 mg tablet 50 mg PO HS amlodipine [Norvasc] 5 mg Tablet 5 mg PO QAM Qty: 30 2RF potassium 95 mg Tablet 95 mg PO QPM Rx Instructions: Pt unsure of specific dose Stan Mag Zinc Plus D3 333 mg-133 unit -133 mg-5 mg Tablet 1 tab PO QPM ondansetron 4 mg tablet,disintegrating 4 mg PO Q6H PRN (Reason: nausea and vomiting) Qty: 14 0RF Discharge Orders: Discharge Order (Routine); Ordered 03/13/23 Ordered By: Ciro Montalvo Admission Data Admit Date/Time: 03/10/23 10:36 Attending Provider: Ciro Montalvo Admit Provider: Ciro Montalvo Primary Care Provider: Carly Salazar Other Providers: James Bowser ; Rigoberto Wu ; Ekaterina Galindo
[2023-03-13 10:37] LABS: Basophils # (auto) 0.02 K/uL (0-0.2); Basophils % (auto) 0.1 %; Eosinophils # (auto) 0.02 K/uL (0-0.50); Eosinophils % (auto) 0.1 %; Hematocrit (blood only) 28.1 % (37.0-47.0); Hemoglobin 9.5 g/dl (12.0-16.0); Immature Granulocytes # (auto) 0.07 K/uL (0.01-0.20); Immature Granulocytes % (auto) 0.5 %; Lymphocytes # (auto) 1.68 K/uL (1.2-3.4); Mean Corpuscular Hemoglobin 30.7 pg (25.0-34.0); Mean Corpuscular Hgb Conc 33.8 g/dL (32.0-36.0); Mean Corpuscular Volume 90.9 fL (80.0-100.0); Mean Platelet Volume 10.8 fL (9.4-12.4); Monocytes # (auto) 0.95 K/uL (0.11-0.59); Monocytes % (auto) 6.8 %; Neutrophils % (auto) 80.5 %; Platelet Count 235 K/uL (130-400); RDW Coefficient of Variation 13.4 % (11.5-14.5); RDW Standard Deviation 44.5 fL (36.4-46.3); Red Blood Count 3.09 M/uL (4.20-5.40); White Blood Count 14.04 K/ul (4.8-10.8)
[2023-03-13] MEDS: oxyCODONE HCL IR 5 MG TAB (IMMEDIATE RELEASE) PO PRN (12:48)
== END 2023-03-13 13:36 | disposition home or self-care (01) | DRG 455 ==
LOC: ASU 05:47 → PACUINP 10:36 → 3E 13:04